=== PATIENT | male | born 1960 | race Caucasian/White ===

== ENCOUNTER 2022-10-17 13:58 | Outpatient (OUT) | payer OTHER, SELFPAY | END 2022-10-17 13:59 | disposition home or self-care (01) | LOC: PST 13:58 | PROVIDERS: Visit Provider Surgery | DX: Z01.818 Encounter for other preprocedural examination (principal); Z12.11 Encounter for screening for malignant neoplasm of colon ==

== ENCOUNTER 2022-10-25 07:23 | Day surgery (SDC) | payer OTHER, SELFPAY ==
--- NOTE | 2022-10-25 | OP_ITS ---
OPERATION DATE: ??10/25/2022 PREOPERATIVE DIAGNOSIS:? Colorectal screening. POSTOPERATIVE DIAGNOSIS:? Normal colonoscopy to cecum. PROCEDURE:? Colonoscopy to cecum. SURGEON:? Warren Medina M.D. ANESTHESIA:? Monitored anesthesia care. ESTIMATED BLOOD LOSS:? Zero. INDICATIONS AND CONSENT:? Patient is a 62-year-old male presents for colorectal screening.? Indications, risks, benefits, alternatives of proceeding with colonoscopy were explained extensively to the patient, including the risks of bleeding, colon perforation or anesthetic complications.? All of his questions were answered.? Informed consent was obtained. PROCEDURE:? Patient brought to the operating room, placed in the left lateral decubitus position.? Monitored anesthesia care was provided.? Rectal exam was performed which showed no masses or blood.? There was some perianal irritation.? No fissures.? No fistula tracts.? No induration.? Some decreased tone.? The scope was inserted into the anal canal.? Under direct visualization was advanced.? It was advanced to the cecum where cecal markings were clearly identified.? There was noted to be a good prep.? Upon withdrawal of the scope, mucosal surfaces were carefully examined.? There were no mass lesions or polyps.? No inflammatory changes or ulcerations.? No significant diverticulosis.? The scope was retroflexed in the anal canal.? There was no significant hemorrhoidal disease.? Scope was then withdrawn.? Patient tolerated procedure well, was sent to recovery room in good condition. f/u screening colonoscopy should be in 10 years. CC:? [facility] P[facility] Lange [facility]
[2022-10-25 07:39] VITALS: BMI 28.6
[2022-10-25] MEDS: LACTATED RINGER'S SOLUTION 1,000 ML 50 ML IV (07:45)
[2022-10-25 08:58] VITALS: BP 91/65; PULSE 87; RESP 20; TEMP 36.1; O2SAT 93
[2022-10-25 09:13] VITALS: BP 117/83; PULSE 78; RESP 16; O2SAT 94
[2022-10-25 09:27] VITALS: BP 112/85; PULSE 89; RESP 16; O2SAT 96
== END 2022-10-25 09:45 | disposition home or self-care (01) ==
PROVIDERS: PCP Internal Medicine; Visit Provider Surgery
PROC: (CPT 45378; principal; 2022-10-25 08:30)
DX: Z12.11 Encounter for screening for malignant neoplasm of colon (principal); I10 Essential (primary) hypertension; E78.5 Hyperlipidemia, unspecified; N40.0 Benign prostatic hyperplasia without lower urinary tract symptoms; E78.00 Pure hypercholesterolemia, unspecified; F41.1 Generalized anxiety disorder
CPT/HCPCS: 45378; J2704

== ENCOUNTER 2023-05-22 10:11 | Outpatient (OUT) | payer OTHER, SELFPAY ==
[2023-05-22 10:30] LABS: Basophils Absolute Auto 0.1 10^3/uL (0.0-0.1); Basophils Percent Auto 0.8 % (0.2-2.0); Eosinophils Absolute Auto 0.4 10^3/uL (0.0-0.7); Eosinophils Percent Auto 6.7 % (0.9-7.0); Hematocrit 43.2 % (42.0-54.0); Hemoglobin 14.5 g/dL (14.0-18.0); Immature Granulocytes Abs Auto 0.02 10^3/uL (0.00-0.03); Immature Granulocytes Pct Auto 0.3 % (0.0-0.5); Lymphocytes Absolute Auto 1.8 10^3/uL (1.2-3.8); Lymphocytes Percent Auto 28.1 % (20.5-60.0); Mean Corpuscular HGB Conc 33.6 g/dL (29.9-35.2); Mean Corpuscular Hemoglobin 31.3 pg (25.9-34.0); Mean Corpuscular Volume 93.1 fL (80.0-94.0); Mean Platelet Volume 8.9 fL (9.5-13.5); Monocytes Absolute Auto 0.9 10^3/uL (0.3-0.8); Monocytes Percent Auto 13.6 % (1.7-12.0); Neutrophils Absolute Auto 3.2 10^3/uL (1.4-6.5); Neutrophils Percent Auto 50.5 % (43.0-75.0); Platelet Count 243 10^3/uL (150-450); Red Blood Count 4.64 10^6/uL (4.70-6.10); Red Cell Distribution Width 11.9 % (11.0-15.0); White Blood Count 6.4 10^3/uL (4.0-11.0)
[2023-05-22 10:57] LABS: Alanine Aminotransferase 32 U/L (16-63); Albumin Globulin Ratio 0.8; Albumin Level 3.2 g/dL (3.4-5.0); Alkaline Phosphatase 81 U/L (46-116); Anion Gap 12.7; Aspartate Amino Transferase 46 U/L (15-37); BUN Creatinine Ratio 17.8; Bilirubin Total 0.6 mg/dL (0.2-1.0); Calcium 8.8 mg/dL (8.5-10.1); Carbon Dioxide 28.4 mmol/L (21.0-32.0); Chloride 105 mmol/L (98-107); Chol HDL Ratio 3.4; Cholesterol 172 mg/dL (<=200); Estimated GFR (African America >60 (>=60); Estimated GFR (Non-African Ame >60 (>=60); Globulin 3.9 g/dL; Glucose 110 mg/dL (74-106); HDL Cholesterol 50 mg/dL (40-60); Potassium 4.1 mmol/L (3.5-5.1); Sodium 142 mmol/L (136-145); Total Protein 7.1 g/dL (6.4-8.2); Triglycerides 151 mg/dL (<=150); VLDL CHOLESTEROL 30.2 mg/dL
[2023-05-22 11:11] LABS: Prostate Specific Antigen Scrn 5.66 ng/mL (<=4.00)
== END 2023-05-22 10:12 | disposition home or self-care (01) ==
LOC: LAB 10:12
PROVIDERS: PCP Internal Medicine; Visit Provider Internal Medicine
DX: Z00.00 Encounter for general adult medical examination without abnormal findings (principal); Z12.5 Encounter for screening for malignant neoplasm of prostate
CPT/HCPCS: 36415; 80053; 80061; 85025; G0103

== ENCOUNTER 2023-07-02 09:36 | Outpatient (OUT) | payer OTHER, SELFPAY ==
[2023-07-03 04:10] LABS: PSA, Free 0.29 ng/mL; Prostate Specific Ag 2.8 ng/mL (0.0-4.0)
== END 2023-07-02 09:37 | disposition home or self-care (01) ==
LOC: LAB 09:37
PROVIDERS: PCP Internal Medicine; Visit Provider Internal Medicine
DX: R97.20 Elevated prostate specific antigen [PSA] (principal)
CPT/HCPCS: 36415; 84153; 84154

== ENCOUNTER 2024-01-04 13:09 | Outpatient (OUT) | payer OTHER, SELFPAY ==
--- OUTSIDE RECORDS SUMMARY | 2024-01-04 13:13 | XMS_ITS | CCD ---
Author Organization [facility] CliniSynm Care Team Providers Care [place] Name Role Phone DR NAYAN LANGE Primary Care Unavailable BALL, DR FONTANEZ Admitting Unavailable BALL, DR FONTANEZ Attending Unavailable BALL, DR FONTANEZ Consulting Unavailable BALL, DR FONTANEZ Admitting Unavailable BALL, DR FONTANEZ Attending Unavailable BALL, DR FONTANEZ Consulting Unavailable BALL, DR FONTANEZ Primary Care Unavailable WEST, DR KAREEM Marc Consulting Unavailable Nazario, Nayan Unavailable NAYAN LANGE Primary Care Physician SHANNAN, Warren Maxwell Attending Unavailable BALL, NAYAN Referring Unavailable NILL, Warren Maxwell Attending Unavailable BALL, NAYAN Referring Unavailable NILL, Warren Maxwell Attending Unavailable Allergies Allergy Classification Reported Allergen(s) Allergy Type Date of Onset Reaction(s) Facility (9 sources) HMG-CoA reductase inhibitor Drug allergy Unknown [employer] Other (1 source) No Known Medication Allergies; Translations: [No Known Medication Allergies] Propensity to adverse reactions (disorder) [facility] Repository (2 sources) patient allergy list reviewed by nurse or physicia Propensity to adverse reactions 9 Comment:Done [employer] Other (2 sources) Penicillins Allergy to substance 4 nausea/vomitin g [facility] (2 sources) Uaoixmy-LFS-LgG Reductase Inhibitor Allergy to substance 4 Unknown Reaction [facility] Medications Current Medications Medication Drug Class(es) Dates Sig (Normalized) Sig (Original) ALPRAZolam 0.5 mg oral tablet (16 sources) Benzodiazepine Start: 04-19-2023 End: 04-19-2023 take 1 tablet by mouth twice daily, then take 2 tablets by mouth once at bedtime Alprazolam Active 0.5 MG PO Three times daily 120 April 19, 2023 3:43pm 1 tablet bid and 2 q HS Start: 06-30-2023 take 1 tablet by misbah th twice daily, then take 2 tablets by mouth once daily at bedtime ALPRAZolam 0.5 MG TAKE 1 TABLET BY MOUTH TWICE DAILY AND 2 TABLETS BY MOUTH DAILY AT BEDTIME for 30 Jul, Active ALPRAZolam 0.5 M G (Schedule IV Drug) TAKE 1 TABLET BY MOUTH TWICE DAILY AND 2 TABLETS BY MOUTH EVERY DAY AT BEDTIME Oral for 30 Active lovastatin 40 mg oral tablet (15 sources) HMG-CoA Reductase Inhibitor Start: 08-27-2023 take 1 tablet by mouth once daily in the evening Lovastatin Active 0 .ROUTE .COMPLEX 90 August 27, 2023 5:19pm TAKE 1 TABLET BY MOUTH EVERY DAY IN THE EVENING Start: 05-18-2023 End: 08-27-2023 take 40 mg by mouth once daily in the evening Lovastatin Discontinued 40 MG PO Every evening May 18, 2023 12:00am August 27, 2023 5:19pm Start: 09-15-2022 [facility] lovastatin 40 mg Tab 40 mg = 1 tab(s), Oral, Daily, Refills(s) 0 Start Date: 09/15/22 Status: Ordered PARoxetine hydrochloride 30 mg oral tablet (16 sources) Serotonin Reuptake Inhibitor Start: 04-19-2023 take 1 tablet by mouth once daily Paroxetine Hcl Active 0 .ROUTE .COMPLEX 90 April 19, 2023 3:44pm TAKE 1 TABLET BY MOUTH EVERY DAY Start: 04-19-2023 End: 04-19-2023 take 30 mg by mouth once daily Paroxetine Hcl Disconti nued 30 MG PO Daily April 19, 2023 1:00am April 19, 2023 3:45pm Start: 09-15-2022 take 1 tablet by misbah once daily paroxetine 30 mg Tab 30 mg = 1 tab(s), Oral, Daily, Refills(s) 0 Start Date: 09/15/22 Status: Ordered predniSONE 20 mg oral tablet (10 sources) Start: 11-05-2023 Prednisone Act roberto 20 MG PO As Directed November 05, 2023 12:00am 1 tab tid w/ food x 3 days, then bid w/ food x 3 days, then qd w/ food x 3 days Start: 03-20-2022 take 1 tablet by misbah twice daily predniSONE 20 MG 1 tablet Orally Twice daily w/ food for 5 days Feb, Not-Taking/PRN Completed/Discontinued Medications Medication Drug Class(es) Dates Sig (Normalized) Sig (Original) azithromycin 250 mg oral tablet (2 sources) Macrolide Antimicrobial Start: 05-22-2023 End: 10-11-2023 Azithromycin Discontinued 250 MG PO As Directed 6 5 May 22, 2023 12:00am October 11, 2023 9:25am baclofen 20 mg oral tablet (9 sources) gamma-Aminobutyric Acid-ergic Agonist Start: 03-20-2022 take 1 tablet by mouth at bedtime Baclofen 20 MG 1 Tablet Orally At bedtime for 7 days Feb, Not-Taking/PRN ciprofloxacin 500 mg oral tablet (10 sources) Quinolone Antimicrobial Start: 05-18-2023 End: 05-21-2023 take 500 mg by mouth every twelve hours Ciprofloxacin Hcl Discontinued 500 MG PO Every 12 hours May 18, 2023 12:00am May 21, 2023 11:48am Start: 08-21-2022 take 1 tablet by misbah th every twelve hours Ciprofloxacin HCl 500 MG 1 tablet Orally every 12 hrs for 5 days Jul, Active diclofenac sodium 75 mg delayed release oral tablet (9 sources) Nonsteroidal Anti-inflammatory Drug take 1 tablet by mouth every twelve hours Diclofenac Sodium 75 MG 1 tablet as needed Orally Twice a day Not-Taking/PRN metroNIDAZOLE 500 mg oral tablet (10 sources) Nitroimidazole Antimicrobial Start: End: take 500 mg by mouth three times daily Metronidazole Discontinued 500 MG PO Three times daily May 18, 2023 12:00am May 21, 2023 11:48am Start: 08-21-2022 take 1 tablet by misbah th every eight hours metroNIDAZOLE 500 MG 1 tablet Orally Three times a day for 5 days Jul, Active sulfamethoxazole 800 mg / trimethoprim 160 mg oral tablet (4 sources) Dihydrofolate Reductase Inhibitor Antibacterial, Sulfonamide Antimicrobial Start: 05-22-2023 End: 10-11-2023 take 1 tablet by mouth twice daily Sulfamethoxazole-Trimethoprim Discontinued 1 TAB PO Twice daily 42 May 22, 2023 12:00am October 11, 2023 9:26am Start: 03-26-2023 take 1 tablet by misbah th every twelve hours Sulfamethoxazole-Trimethoprim 800-160 MG 1 tablet Orally bid for 7 days Feb, Active tiZANidine 4 mg oral tablet (9 sources) Central alpha-2 Adrenergic Agonist take 1 tablet by mouth every eight hours tiZANidine HCl 4 MG 1 tablet as needed Orally Three times a day Not-Taking/PRN triamcinolone acetonide 0.001 mg/mg topical ointment (19 sources) Corticosteroid Start: 05-18-19 End: 05-21-19 Triamcinolone Acetonide Discontinued 1 APPLIC TOPICAL Twice daily May 18, 2023 12:00am May 21, 2023 11:49am Start: 11-17-2019 Kenalog -40 mg Oct, 40 mg Triamcinolone Ac etonide 0.1 % 1 application Externally Twice a day for 7 days Active Problems Active Problems Problem Classification Problem Date Documented Date Episodic/Chronic Anal and rectal conditions (14 sources) Rectal abscess; Translations: [Anorectal abscess] Resolved: 07-15-2019 Episodic Anxiety disorders (16 sources) Generalized anxiety disorder; Translations: [Generalized anxiety disorder] 09-18-2022 Chronic Diabetes mellitus without complication (2 sources) Impaired fasting glycemia; Translations: [Impaired fasting glucose] 05-28-2023 Episodic Diseases of mouth; excluding dental (11 sources) Lip ulcer; Translations: [Diseases of lips] Episodic Disorders of lipid metabolism (20 sources) Pure hypercholesterolemia; Translations: [Familial hypercholesterolemia] Onset: 03-31-2015 Resolved: 07-15-2019 09-18-2022 Chronic Essential hypertension (17 sources) Essential hypertension; Translations: [Essential (primary) hypertension] Chronic Fracture of upper limb (4 sources) Closed fracture of base of thumb; Translations: [Closed fracture of base of thumb (first) metacarpal bone(s)] Episodic Hemorrhoids (18 sources) External hemorrhoids; Translations: [Residual hemorrhoidal skin tags] 05-18-2023 Episodic Hyperplasia of prostate (16 sources) Lower urinary tract symptoms due to benign prostatic hypertrophy; Translations: [Benign prostatic hyperplasia with lower urinary tract symptoms] 09-18-2022 Chronic Miscellaneous mental health disorders (2 sources) Psychosexual dysfunction associated with inhibited sexual excitement; Translations: [Psychosexual dysfunction with inhibited sexual excitement] Onset: 10-22-2012 Chronic Nonmalignant breast conditions (2 sources) Hypertrophy of breast; Translations: [Hypertrophy of breast] Episodic Osteoarthritis (12 sources) Osteoarthritis of joint of right shoulder region; Translations: [Primary osteoarthritis, right shoulder] 05-18-2023 Chronic Other circulatory disease (11 sources) Elevated blood-pressure reading without diagnosis of hypertension; Translations: [Elevated blood-pressure reading, without diagnosis of hypertension] Episodic Other connective tissue disease (11 sources) Acquired trigger finger; Translations: [Trigger finger, left middle finger] Episodic Other injuries and conditions due to external causes (11 sources) Old healed fracture of bone ; Translations: [Personal history of (healed) traumatic fracture] Episodic Other liver diseases (2 sources) Enzyme level - finding; Translations: [Transaminasemia] 05-28-2023 Episodic Other male genital disorders (15 sources) Male erectile dysfunction, unspecified; Translations: [Erectile dysfunction] 09-18-2022 Chronic Other non-traumatic joint disorders (1 source) Pain in right shoulder Episodic Other nutritional; endocrine; and metabolic disorders (2 sources) Simple obesity ; Translations: [Other obesity due to excess calories] Chronic Other nutritional; endocrine; and metabolic disorders (2 sources) Body mass index 30+ - obesity; Translations: [Body mass index 30.0-30.9, adult] Onset: 03-31-2015 Chronic Other nutritional; endocrine; and metabolic disorders (12 sources) Overweight; Translations: [Overweight] 09-18-2022 Episodic Other nutritional; endocrine; and metabolic disorders (1 source) Overweight in adulthood with body mass index of 25 or more but less than 30 09-20-2022 Episodic Other screening for suspected conditions (not mental disorders or infectious disease) (12 sources) Encounter for screening for malignant neoplasm of prostate; Translations: [Patient encounter status] Onset: 09-23-2020 Resolved: 07-15-2019 Episodic Residual codes; unclassified (2 sources) H/O: Disorder; Translations: [Personal history of other specified conditions] Episodic Spondylosis; intervertebral disc disorders; other back problems (19 sources) Other spondylosis with radiculopathy, cervical region; Translations: [Cervical spondylosis without myelopathy] Onset: 07-28-2020 Chronic Sprains and strains (9 sources) Rupture of tendon of biceps; Translations: [Strain of muscle, fascia and tendon of other parts of biceps, right arm, initial encounter] Episodic Unclassified (1 source) Patient encounter status 09-20-2022 Past or Other Problems Problem Classification Problem Date Documented Da te Episodic/Chronic Acute bronchitis (2 sources) Acute bronchitis; Translations: [Acute bronchitis, unspecified] Onset: 05-22-2014 Episodic Genitourinary symptoms and ill-defined conditions (3 sources) Dysuria; Translations: [Dysuria] Onset: 10-06-2016 Episodic Headache; including migraine (2 sources) Tension-type headache; Translations: [Tension headache] Resolved: 07-15-2019 Chronic Malaise and fatigue (2 sources) Malaise and fatigue; Translations: [Other malaise and fatigue] Onset: 10-06-2016 Resolved: 07-15-2019 Episodic Other connective tissue disease (2 sources) Pain in limb; Translations: [Pain in soft tissues of limb] Onset: 08-01-2017 Resolved: 07-15-2019 Episodic Other nutritional; endocrine; and metabolic disorders (2 sources) Body mass index 25-29 - overweight; Translations: [Body mass index (BMI) 28.0-28.9, adult] Onset: 03-31-2015 Episodic Other upper respiratory infections (4 sources) Acute maxillary sinusitis; Translations: [Acute recurrent maxillary sinusitis] Onset: 05-22-2014 Resolved: 07-15-2019 Episodic Residual codes; unclassified (2 sources) Family history of diabetes mellitus; Translations: [Family history of diabetes mellitus] Resolved: 07-15-2019 Episodic Spondylosis; intervertebral disc disorders; other back problems (2 sources) Backache; Translations: [Dorsalgia, unspecified] Onset: 10-22-2012 Episodic Unclassified (1 source) Acute right-sided low back pain without sciatica M54.50 Results Test Name Value Interpretation Reference Range Facility Outside Colonoscopyon 2022 Outside Colonoscopy [id number]:12 7 [facility] Reminderson 10-26-2022 Reminders - From: Heather Pepper LPN To: N - Clinical; Sent: 10/26/2022 09:57:03 EDT Show up: 09/24/2032 07:00:00 EDT Subject: colonoscopy recall Due Date/Time: 10/25/2032 07:00:00 EDT Reminder/Recall Patient due for screening colonoscopy 10/25/2032. Normal [facility] Consent for Procedure/Surger yon 09-21-2022 Consent for Procedure/Surgery [id number]:12 7 Normal [facility] Facesheeton 09-21-2022 Facesheet [id number]:12 7 Normal [facility] Ambulatory Visit Summaryon 0 09-20-2022 Ambulatory Visit Summary INA DONALDSON JR :1960 Visit Date:09/20/2022 Ambulatory Visit Instructions Your Care Team Attending Physician - SHANNAN HERNANDEZ, Warren Maxwell Primary Care Physician - NAYAN LANGE DO Referring Physician - NAYAN LANEG DO This Is Your Medications List Contact prescribing physician if questions or concerns alprazolam (alprazolam 0.5 mg Tab) lovastatin (lovastatin 40 mg Tab) paroxetine (paroxetine 30 mg Tab) Procedures Performed Colonoscopy (06/2012), Arthroscopy of knee, Excisional biopsy of breast mass, Plantar fasciotomy, Right glenoid labrum. Discharge Vitals Heart Rate (Peripheral) 72 Respiratory Rate 16 Blood Pressure 132/92 Height 172.72 cm Height 68 in Weight 84.5 kg Weight 185.9 lb BMI 28.33 Medications What How Much When Instructions Unchanged alprazolam (alprazolam 0.5 mg Tab) as directed Contact prescribing physician if questions or concerns Unchanged lovastatin (lovastatin 40 mg Tab) 1 Tablets By Mouth Every day Contact prescribing physician if questions or concerns Unchanged paroxetine (paroxetine 30 mg Tab) 1 Tablets By Mouth Every day Contact prescribing physician if questions or concerns Allergies No Known Allergies No Known Medication Allergies Problems Ongoing - Any problem that you are currently receiving treatment for. Anorectal abscess BMI 28.0-28.9,adult BPH (benign prostatic hyperplasia) Cervical spondylosis without myelopathy Erectile dysfunction Essential hypertension Generalized anxiety disorder Hyperlipidemia Overweight Pure hypercholesterolemia Normal [facility] General Surgery Office/Clini c Noteon 09-20-2022 General Surgery Office/Clinic Note Chief Complaint consult perirectal abscess, screening colonoscopy HPI Staff 61 year old male presents on consultation from Dr. Lange for perirectal abscess and screening colonoscopy. Patient reports rectal pain and discharge starting mid July. PCP noted fullness at 9:00 position and blood and mucus on rectal exam. Was doing sitz bath 1-2 times per day. He was not febrile. Prescribed Cipro 500mg BID and Flagyl 500mg TID x 7 days. On follow up, symptoms had improved but not resolved so ATB's were repeated x 5 days. Currently, he is asymptomatic other than feeling there is something protruding from rectum. Last colonoscopy completed 06/2012- normal. Denies abdominal pain. No nausea, vomiting or bowel changes. No unexplained weight loss. History of Present Illness 61 yo male with h/o htn, hyperlipidemia, hypercholesterolemia, TEODORA, bph, referred for colorectal screening; patient also has h/o rectal pain and pain with wiping that began 6 weeks ago; felt to have possible perirectal abscess, with drainage; improved with antibiotic therapy; no change in bms or blood in stools; no further drainage; no fevers, no previous rectal or abd surgery; last colonoscopy 2012 wnl; no tobacco use. Review of Systems PHQ Score Initial Depression Screen Score: 0 ROS - Provider Constitutional: no fever, no sweats, no weight loss. Eyes: no glasses, no blurred vision, no visual loss. ENMT: no dentures, no hoarseness, no swallowing difficulties, no hearing loss, no ear infection(s), no nose bleeds. Cardiovascular: normal blood pressure, no chest pain, regular heartbeat, no heart murmur. Respiratory: no shortness of breath, no cough, no asthma, no wheezing. Gastrointestinal: no nausea, no vomiting, no diarrhea, no constipation, no blood in stool, no change in bowel habits, no abdominal pain, no hepatitis. Genitourinary: no kidney stones, no urine infection, no dysuria. Musculoskeletal: no pain, no weakness. Skin: no changing moles, no rash, no skin lumps. Neurologic: no seizures, no epilepsy, no headache. Psychiatric: no emotional or psychiatric problem. Heme/Lymph: no bleeding problems, no anemia, no blood clots, no transfusions. Allergy/Immunologic: no swollen lymph nodes/glands, no IV drug abuse. Other: Additional ROS info: Except as noted in the above Review of Systems and in the History of Present Illness, all other systems have been reviewed and are negative or noncontributory. Physical Exam Vitals & Measurements HR: 72(Peripheral) RR: 16 BP: 132/92 HT: 68 in HT: 172.72 cm WT: 84.5 kg WT: 185.9 lb BMI: 28.33 HEENT: normal conjunctiva, sclera clear, no scleral icterus, EOM intact, PERRLA, oral mucosa moist without lesions. Neck: trachea midline, no mass, symmetric, no thyromegaly or nodules, no adenopathy Respiratory: lungs CTA, respirations non labored. Cardiovascular: regular rate and rhythm, no murmur, no pedal edema or varicosities. Gastrointestinal: soft, non distended, no tenderness, no masses, no palpable hernias, diastasis recti no, no hepatosplenomegaly; normal bs rectal: no masses or blood, no induration or drainage, no skin tags or fissures. Lymphatic: no cervical adenopathy, no supraclavicular adenopathy. Musculoskeletal: normal gait, digits and nails without infection, nodes, cyanosis, clubbing. Skin: no rashes, no lesions, no ulcers, no subcutaneous nodules, induration. Psychiatric/Neuro: oriented to time, place, person, judgement normal, affect appropriate for age, insight intact, no focal deficits. Tests: review of old records completed, Discussed surgical options, risks, and possible complications with patient. Assessment/Plan 1. Screening for malignant neoplasm of colon (Z12.11: Encounter for screening for malignant neoplasm of colon) plan colonoscopy under anesthesia, informed consent obtained; no evidence of fistula at this time, but will reevaluate at time of colonoscopy. Follow-up No qualifying data available Problem List/Past Medical History Ongoing Anorectal abscess BMI 28.0-28.9,adult BPH (benign prostatic hyperplasia) Cervical spondylosis without myelopathy Erectile dysfunction Essential hypertension Generalized anxiety disorder Hyperlipidemia Overweight Pure hypercholesterolemia Screening for malignant neoplasm of colon Historical No qualifying data Procedure/Surgical History Colonoscopy (06/2012), Arthroscopy of knee, Excisional biopsy of breast mass, Plantar fasciotomy, Right glenoid labrum. Medications alprazolam 0.5 mg Tab lovastatin 40 mg Tab, 40 mg= 1 tab(s), Oral, Daily paroxetine 30 mg Tab, 30 mg= 1 tab(s), Oral, Daily Allergies No Known Allergies No Known Medication Allergies Social History Alcohol Current, Liquor, 1-2 times per week, 09/20/2022 Substance Abuse - Denies Substance Abuse, 09/20/2022 Tobacco Never (less than 100 in lifetime) Tobacco Use:. Never Smokeless Tobacco Use:., 09/20/2022 Family History COPD: Mother. Diabetes mellitus typ (more content not included)... Normal [facility] Comment on above: Result Comment: Elec tronically Signed By: SHANNAN HERNANDEZ, Warren Gonzales\Date and Time Signed: 09/20/22 16:54 EDT Physician Referralon 023 Physician Referral [id number]:12 7 Normal [facility] CBC AUTO DIFFon 09-20-2020 BASO # 0.1 103/ul Normal 0.0-0.1 [facility] Comment on above: Performed By: #### C BC #### [facility] [address] [place] [address] Hailee Sally Basophils/100 WBC (Bld) 0.9 % Normal 0.2-2.0 [facility] Comment on above: Performed By: #### C BC #### [facility] [address] [place] [address] Hailee Sally EO # 0.3 103/ul Normal 0.0-0.7 [facility] Comment on above: Performed By: #### C BC #### [facility] [address] [place] [address] Hailee Sally Eosinophils/100 WBC (Bld) 4.8 % Normal 0.9-7.0 [facility] Comment on above: Performed By: #### C BC #### [facility] [address] [place], [place] [id number] Hailee Sally Erythrocyte distribution width (RBC) [Ratio] 12.4 % Normal 11.0-15.0 [facility] Comment on above: Performed By: #### C BC #### [facility] [address] [place], [place] [id number] Hailee Sally Hematocrit (Bld) [Volume fraction] 47.8 % Normal 42.0-54.0 [facility] Comment on above: Performed By: #### C BC #### [facility] [address] [place] [address] Hailee Zavala Hemoglobin (Bld) [Mass/Vol] 16.1 g/dL Normal 14.0-18.0 [facility] Comment on above: Performed By: #### C BC #### [facility] [address] [place] [address] Haileedaja Zavlaa IG # 0.02 10e3/ul Normal 0.00-0.03 [facility] Comment on above: Performed By: #### C BC #### [facility] [address] [place] [address] Haileedaja Zavala IG % 0.4 % Normal 0.0-0.5 [facility] Comment on above: Performed By: #### C BC #### [facility] [address] [place] [address] Hailee Zavala LYMPH # 1.8 103/ul Normal 1.2-3.8 [facility] Comment on above: Performed By: #### C BC #### [facility] [address] [place] [address] Hailee Zavala Lymphocytes/100 WBC (Bld) 32.0 % Normal 20.5-60.0 [facility] Comment on above: Performed By: #### C BC #### [facility] [address] [place] [address] Hailee Zavala MANUAL DIFF REQ NO Normal [facility] Comment on above: Performed By: #### C BC #### [facility] [address] [place], [place] [id number] Hailee Zavala MCH (RBC) [Entitic mass] 31.7 pg Normal 25.9-34.0 [facility] Comment on above: Performed By: #### C BC #### [facility] [address] [place] [address] Hailee Zavala MCHC (RBC) [Mass/Vol] 33.7 g/dL Normal 29.9-35.2 [facility] Comment on above: Performed By: #### C BC #### [facility] [address], [place] [address] Hailee Zavala MCV (RBC) [Entitic vol] 94.1 fL Critically high 80.0-94.0 [facility] Comment on above: Performed By: #### C BC #### [facility] [address] [place] [id number] Hailee Zavala MONO # 0.7 103/ul Normal 0.3-0.8 [facility] Comment on above: Performed By: #### C BC #### [facility] [address] [place] [id number] Hailee Zavala Monocytes/100 WBC (Bld) 12.6 % Critically high 1.7-12.0 [facility] Comment on above: Performed By: #### C BC #### [facility] [address] [place], [place] [id number] Hailee Zavala NEUT # 2.7 103/ul Normal 1.4-6.5 [facility] Comment on above: Performed By: #### C BC #### [facility] [address] [place], [place] [id number] Hailee Zavala Neutrophils/100 WBC (Bld) 49.3 % Normal 43.0-75.0 [facility] Comment on above: Performed By: #### C BC #### [facility] [address] [id number] Hailee Zavala Platelet mean volume (Bld) [Entitic vol] 9.4 fL Critically low 9.5-13.5 [facility] Comment on above: Performed By: #### C BC #### [facility] [address] [place] [id number] Haileedaja Moctezumaen PLT 257 103/ul Normal 150-450 [facility] Comment on above: Performed By: #### C BC #### [facility] [address] [place], [place] [id number] Haileedaja Zavala RBC 5.08 106/ul Normal 4.70-6.10 [facility] Comment on above: Performed By: #### C BC #### [facility] [address], [place] [address] Hailee Sally WBC 5.5 103/ul Normal 4.0-11.0 [facility] Comment on above: Performed By: #### C BC #### [facility] [address], [place] [address] Hailee Sally LIPID PROFILEon 09-20-2020 CHOL-HDL RATIO NORM SEE BELOW Normal [facility] Comment on above: Result Comment: 3.3 - 4.4 LOW RISK 4.4 - 7.1 AVERAGE RISK 7.1 - 11.0 MODERATE RISK >11.0 HIGH RISK Performed By: #### L IPID, CMP #### [facility] [address] [id number] Hailee Sally Cholesterol [Mass/Vol] 290 mg/dL Critically high <=200 [facility] Comment on above: Performed By: #### L IPID, CMP #### [facility] [address] [id number] Hailee Sally Cholesterol in HDL [Mass/Vol] 72 mg/dL Normal [facility] Comment on above: Performed By: #### L IPID, CMP #### [facility] [address] [id number] Hailee Sally Cholesterol in LDL [Mass/Vol] 195.8 mg/dL Normal [facility] Comment on above: Performed By: #### L IPID, CMP #### [facility] [address], [place] [address] Hailee Sally Cholesterol.total/ Cholesterol in HDL [Mass ratio] 4.0 {ratio} Normal [facility] Comment on above: Performed By: #### L IPID, CMP #### [facility] [address], [place] [address] Hailee Sally HDL NORMAL > or = 60 mg/dl - LO W CARDIOVASCULAR RISK <40 mg/dl - HIGH CARDIOVASCULAR RISK Normal [facility] Comment on above: Performed By: #### L IPID, CMP #### [facility] [address] [id number] Hailee Sally LDL CALC NORMAL SEE BELOW Normal [facility] Comment on above: Result Comment: <100 mg/dl OPTIMAL 100 - 129 mg/dl NEAR OR ABOVE OPTIMAL 130 - 159 mg/dl BORDERLINE HIGH 160 - 189 mg/dl HIGH >190 mg/dl VERY HIGH Performed By: #### L IPID, CMP #### [facility] [address] [id number] Hailee Sally Triglyceride [Mass/Vol] 111 mg/dL Normal <=150 [facility] Comment on above: Performed By: #### L IPID, CMP #### [facility] [address] [id number] Hailee Sally VLDL CALC 22.2 mg/dL Normal [facility] Comment on above: Performed By: #### L ASHLEIGH, CMP #### [facility] [address] [place], [place] [id number] Hailee Salyl PROF 14(COMP METB)on 021 Albumin [Mass/Vol] 3.8 g/dL Normal 3.5-5.0 [facility] Comment on above: Performed By: #### L IPIGOR, CMP #### [facility] [address] [id number] Hailee Sally Albumin/Globulin [Mass ratio] 1.0 {ratio} Normal [facility] Comment on above: Performed By: #### L ASHLEIGH, CMP #### [facility] [address] [id number] Hailee Sally ALP [Catalytic activity/Vol] 64 U/L Normal 38-126 [facility] Comment on above: Performed By: #### L IPID, CMP #### [facility] [address] [place], [place] [id number] Hailee Sally ALT [Catalytic activity/Vol] 36 U/L Normal 21-72 [facility] Comment on above: Performed By: #### L IPID, CMP #### [facility] [address] [id number] Hailee Sally Anion gap [Moles/Vol] 13.0 mmol/L Normal [facility] Comment on above: Performed By: #### L IPID, CMP #### [facility] [address] [id number] Hailee Sally AST [Catalytic activity/Vol] 56 U/L Normal 17-59 [facility] Comment on above: Performed By: #### L IPID, CMP #### [facility] [address] [address] Hailee Sally Bilirubin [Mass/Vol] 1.0 mg/dL Normal 0.2-1.3 [facility] Comment on above: Performed By: #### L IPID, CMP #### [facility] [address] [address] Hailee Sally Calcium [Mass/Vol] 9.0 mg/dL Normal 8.4-10.2 [facility] Comment on above: Performed By: #### L IPID, CMP #### [facility] [address] [address] Hailee Sally Chloride [Moles/Vol] 106 mmol/L Normal 98-107 [facility] Comment on above: Performed By: #### L IPID, CMP #### [facility] [address] [place] [address] Hailee Sally CO2 [Moles/Vol] 29.4 mmol/L Normal 22.0-30.0 [facility] Comment on above: Performed By: #### L IPID, CMP #### [facility] [address] [place] [address] Hailee Sally Creatinine [Mass/Vol] 1.00 mg/dL Normal 0.66-1.25 [facility] Comment on above: Performed By: #### L IPID, CMP #### [facility] [address] [place], [place] [id number] Hailee Sally EGFR-AF CAMEROONIAN >60 Normal >=60 [facility] Comment on above: Performed By: #### L IPID, CMP #### [facility] [address] [place] [address] Hailee Sally EGFR-NON AF CAMEROONIAN >60 Normal >=60 [facility] Comment on above: Performed By: #### L IPID, CMP #### [facility] [address] [place], [place] [address] Hailee Sally Globulin (S) [Mass/Vol] 3.8 g/dL Normal [facility] Comment on above: Performed By: #### L IPID, CMP #### [facility] [address] [address] Hailee Sally Glucose [Mass/Vol] 117 mg/dL Critically high 74-[address] [facility] Comment on above: Performed By: #### L IPID, CMP #### [facility] [address] [address] Hailee Sally Potassium [Moles/Vol] 5.4 mmol/L Critically high 3.4-5.0 [facility] Comment on above: Performed By: #### L IPID, CMP #### [facility] [address] [address] Hailee Sally Protein [Mass/Vol] 7.6 g/dL Normal 6.1-8.2 [facility] Comment on above: Performed By: #### L IPID, CMP #### [facility] [address] [place] [address] Hailee Sally Sodium [Moles/Vol] 143 mmol/L Normal 137-145 [facility] Comment on above: Performed By: #### L IPID, CMP #### [facility] [address] [address] Hailee Sally Urea nitrogen [Mass/Vol] 16.0 mg/dL Normal 9.0-20.0 [facility] Comment on above: Performed By: #### L IPID, CMP #### [facility] [address] [address] Hailee Sally Urea nitrogen/Creatinin e [Mass ratio] 16.0 mg/mg Normal [facility] Comment on above: Performed By: #### L IPID, CMP #### [facility] [address] [id number] Hailee Sally XR CSPINE 2_3 VIEWSon 2020 XR CSPINE 2_3 VIEWS EXAMINATION: XR CSPINE 2_3 VIEWS HISTORY: Cervical spondylosis with radiculopathy COMPARISON: No relevant comparison available. FINDINGS: BONES: Normal alignment with no acute fracture or spondylolisthesis. Mild to moderate degenerative spondylosis and facet osteoarthropathy most significant C5-C6 DISC SPACES: Multilevel disc space narrowing with endplate sclerosis most significant C5-C6 and C6-C7 PARASPINOUS: Negative. No paraspinous abnormality is seen. OTHER: Negative. IMPRESSION: Mild to moderate degenerative changes Electronically authenticated by: KAREEM COOPER Date: 2020-07-28 11:20 Normal [facility] Vital Signs Date Time Vital Sign Value Performing Clinician Facility 11-05-2023 15:50-0400 Body height 172.72 cm [facility] 11-05-2023 15:50-0400 Body mass index (BMI) [Ratio] 28.5 kg/m2 [facility] 11-05-2023 15:50-0400 Body weight 85.27 kg [facility] 11-05-2023 15:50-0400 Diastolic blood pressure 85 mm[Hg] [facility] 11-05-2023 15:50-0400 Heart rate 86 /min [facility] 11-05-2023 15:50-0400 Respiratory rate 12 /min [facility] 11-05-2023 15:50-0400 Systolic blood pressure 138 mm[Hg] [facility] 10-11-2023 09:18-0400 Body height 172.72 cm [facility] 10-11-2023 09:18-0400 Body mass index (BMI) [Ratio] 27.9 kg/m2 [facility] 10-11-2023 09:18-0400 Body weight 83.46 kg [facility] 10-11-2023 09:18-0400 Diastolic blood pressure 83 mm[Hg] [facility] 10-11-2023 09:18-0400 Heart rate 76 /min [facility] 10-11-2023 09:18-0400 Systolic blood pressure 129 mm[Hg] [facility] 05-21-2023 11:49-0400 Body height 172.72 cm [facility] 05-21-2023 11:49-0400 Body mass index (BMI) [Ratio] 30.1 kg/m2 [facility] 05-21-2023 11:49-0400 Body weight 89.92 kg [facility] 05-21-2023 11:49-0400 Diastolic blood pressure 89 mm[Hg] [facility] 05-21-2023 11:49-0400 Heart rate 98 /min [facility] 05-21-2023 11:49-0400 Respiratory rate 12 /min [facility] 05-21-2023 11:49-0400 Systolic blood pressure 145 mm[Hg] [facility] 09-20-2022 14:56-0400 Blood Pressure Location [facility] [place] 09-20-2022 14:56-0400 Diastolic blood pressure 92 mm[Hg] [employer] [facility] [place] 09-20-2022 14:56-0400 Heart rate 72 /min [facility] [place] 09-20-2022 14:56-0400 Respiratory rate 16 /min [facility] [place] 09-20-2022 14:56-0400 Systolic blood pressure 132 mm[Hg] [employer] [facility] [place] 08-28-2022 08:45-0400 Body height 172.72 cm Nayan [employer] Other [facility] Other 08-28-2022 08:45-0400 Body mass index (BMI) [Ratio] 28.61 kg/m2 Nayan Ball Other [facility] Other 08-28-2022 08:45-0400 Body weight 85.37 kg Nayan [place] Other [facility] Other 08-28-2022 08:45-0400 Diastolic blood pressure 86 mm[Hg] Nayan Ball Other [facility] Other 08-28-2022 08:45-0400 Respiratory rate 12 /min Nayan Ball Other [facility] Other 08-28-2022 08:45-0400 Systolic blood pressure 126 mm[Hg] Nayan Ball Other [facility] Other 08-21-2022 09:30-0400 Body height 172.72 cm Nayan Ball Other [facility] Other 08-21-2022 09:30-0400 Body mass index (BMI) [Ratio] 28.61 kg/m2 Nayan Ball Other [facility] Other 08-21-2022 09:30-0400 Body weight 85.37 kg Nayan Ball Other [facility] Other 08-21-2022 09:30-0400 Diastolic blood pressure 88 mm[Hg] Nayan Ball Other [facility] Other 08-21-2022 09:30-0400 Respiratory rate 12 /min Nayan Ball Other [employer] Other 08-21-2022 09:30-0400 Systolic blood pressure 151 mm[Hg] Nayan Ball Other [facility] Other 05-31-2022 10:15-0400 Body height 172.72 cm Nayan Ball Other [employer] Other 05-31-2022 10:15-0400 Body mass index (BMI) [Ratio] 29.89 kg/m2 Nayan Ball Other [employer] Other 05-31-2022 10:15-0400 Body weight 89.18 kg Nayan Ball Other [employer] Other 05-31-2022 10:15-0400 Diastolic blood pressure 81 mm[Hg] Nayan Ball Other [facility] Other 05-31-2022 10:15-0400 SaO2% (BldA) [Mass fraction] 96 % Nayan Ball Other [facility] Other 05-31-2022 10:15-0400 Systolic blood pressure 123 mm[Hg] Nayan Ball Other [facility] Other 03-20-2022 12:30-0500 Body height 172.72 cm Nayan Ball Other [employer] Other 03-20-2022 12:30-0500 Body mass index (BMI) [Ratio] 29.16 kg/m2 Nayan Ball Other [employer] Other 03-20-2022 12:30-0500 Body weight 87 kg Nayan Ball Other [employer] Other 03-20-2022 12:30-0500 Diastolic blood pressure 76 mm[Hg] Nayan Ball Other [facility] Other 03-20-2022 12:30-0500 Respiratory rate 12 /min Nayan Ball Other [employer] Other 03-20-2022 12:30-0500 Systolic blood pressure 118 mm[Hg] Nayan Ball Other [employer] Other Encounters Encounter Date Encounter Type Care Provider Facility Start: 11-05-2023 End: 11-05-2023 ambulatory [facility] Work Phone: Start: 11-05-2023 End: 11-05-2023 Patient encounter procedure [facility] Work Phone: Start: 10-11-2023 End: 10-11-2023 ambulatory [facility] Work Phone: Start: 10-11-2023 End: 10-11-2023 Patient encounter procedure [facility] Work Phone: Start: 05-21-2023 End: 05-21-2023 ambulatory [facility] Work Phone: Start: 05-21-2023 End: 05-21-2023 Encounter for general adult medical examination without abnormal findings [facility] Start: 05-21-2023 End: 05-21-2023 Patient encounter procedure [facility] Work Phone: Start: 04-19-2023 Non-patient / Non-visit [facility] Work Phone: Start: 03-26-2023 End: 03-26-2023 ambulatory Nayan Lange Other [facility] Other Start: 03-26-2023 Nursing evaluation o f patient and report Nayan Lange [facility] Start: 03-26-2023 Telephone encounter Nayan Lange [facility] Start: 03-26-2023 Patient encounter procedure [facility]- Start: 10-25-2022 End: 10-26-2022 ambulatory Warren R NILL Facility:[id number] Start: 09-20-2022 End: 09-21-2022 ambulatory Warren R NILL Facility: [facility] Start: 09-20-2022 End: 09-20-2022 Patient encounter procedure Warren R NILL [facility] [place] Start: 09-14-2022 ambulatory Warren R NILL Facility : [facility] Start: 09-12-2022 End: 09-12-2022 ambulatory Nayan Lange Other [facility] Other Start: 09-12-2022 Telephone encounter Nayan COLLINS [facility] Start: 09-01-2022 End: 09-01-2022 ambulatory Nayan Lange Other [facility] Other Start: 09-01-2022 Telephone encounter Nayan Lange [facility] Start: 08-28-2022 End: 08-28-2022 ambulatory Nayan Lange Other [employer] Other Start: 08-28-2022 Office outpatient visit 15 minutes Nayan Lange [facility] Start: 08-21-2022 End: 08-21-2022 ambulatory Nayan Lange Other [employer] Other Start: 08-21-2022 Office outpatient visit 15 minutes Nayan Lange [facility] Start: 05-31-2022 End: 05-31-2022 ambulatory Nayan Lange Other [facility] Other Start: 05-31-2022 Office outpatient visit 15 minutes Nayan Lange [facility] Start: 03-20-2022 End: 03-20-2022 ambulatory Nayan Lange Other [facility] Other Start: 03-20-2022 Office outpatient visit 15 minutes Nayan Lange [facility] Start: 10-08-2021 Adult health examination Nayan Lange Other [employer] Other Start: 09-23-2020 Encounter for genera l adult medical examination without abnormal findings DR NAYAN LANGE [facility] Start: 09-20-2020 End: 09-21-[address] NAYAN LANGE Facility:[facility] Start: 09-20-2020 End: 09-21-2020 Encounter for general adult medical examination without abnormal findings DR NAYAN LANGE Facility:[facility] Start: 07-28-2020 End: 07-29-[address] NAYAN LANGE Facility:[facility] Procedures Date Procedure Procedure Detail Performing Clinician Start: 09-20-[address] ALONDRA LANGE Comment on above: Performed By: #### [facility] #### [facility] [address] [place] [address] Hailee Zavala Start: 10-06-2016 End: 07-15-2019 Screening for malignant neoplasm of prostate Nayan Lange Other Start: 01-29-2014 End: 07-15-2019 General examination of patient Nayan Lange Other Start: 06-26-2012 Colonoscopy Warren NI LL Arthroscopy of knee Warren NILL Depression screening Smitha [place] Other Excisional biopsy of breast mass Warren NILL Fasciotomy of foot Warren Gonzalez ILL Screening for malign ant neoplasm of prostate Nyaan [place] Other Structure of right g lenoid labrum Warren LOGNL Plan of Treatment Date Care Activity Detail Author Comprehensive metabo lic 2000 panel - Serum or Plasma [facility] enter [facility] Payers Date Payer Category Payer Unknown [id number] [id number] [id number] 1960 Unknown [id number] [id number] [id number] 1960 Unknown [id number] [id number] [id number] 1959 Unknown [id number] [id number] [id number] 1959 Unknown [id number] 2.16.8 [id number] 1959 Unknown [id number] Self-pay Self Pay [id number] Social History Date Type Detail Facility Unknown if ever smoked [employer] Other Sex Assigned At [facility] Start: 09-20-2022 End: 03-26-2023 Tobacco smoking status Never smoked tobacco (finding) [facility] [place] Tobacco smoking status Never [facility] [place] Start: 1960 Sex Assigned At Male F [facility] Functional Status Date Assessment Result Facility 09-20-2022 Functional Status N/A [facility] Clinical Notes 10-06-2016 to 10-11-2023 Note Date & Type Note Facility 10-11-2023 Evaluation note Authored October 11, 2023 9: 47am 62-year-old man referred to the GI clinic for evaluation of rectal pain. Patient has been having discomfort in the rectum for the last 2 months. He had a colonoscopy in [place] a year ago which was normal as per patient. Will arrange for [facility] Work Phone: [phone]) 910-439506-15-2024 Evaluation note* Author Miranda [facility] Authored October 11, 2023 9: 47am 62-year-old man referred to the GI clinic for evaluation of rectal pain. Patient has been having discomfort in the rectum for the last 2 months. He had a colonoscopy in [place] a year ago which was normal as per patient. Will arrange for [facility] Work Phone: [phone]) 660-824507-03-2023 Evaluation note* Encounter Date Diagnosis Assessment Notes Treatment Notes Treatment Clinical Notes Aug, Jorden-rectal abscess (ICD-10 - K61.1) Much improved clinically. He is to continues w/ soaking in tub and wiping w/ Tucks wipes. He is to avoid straining Resume normal activity as tolerated Notify office w/ any recurrent symptoms Rx w/ additional 5 days of antibiotics [facility] Other 07-03-2023 Evaluation note* Encounter Date Diagnosis Assessment Notes Treatment Notes Treatment Clinical Notes Aug, Jorden-rectal abscess (ICD-10 - K61.1) Much improved clinically. He is to continues w/ soaking in tub and wiping w/ Tucks wipes. He is to avoid straining Resume normal activity as tolerated Notify office w/ any recurrent symptoms Rx w/ additional 5 days of antibiotics Aug, Screening for colon cancer (ICD-10 - Z12.11) [facility] Other 06-26-2023 Evaluation note* Encounter Date Diagnosis Assessment Notes Treatment Notes Treatment Clinical Notes Jul, Jorden-rectal abscess (ICD-10 - K61.1) Sitz baths daily, gentle cleansing. Avoid straining Recheck in 1 wk. [facility] Other 04-05-2023 Evaluation note* Encounter Date Diagnosis Assessment Notes Treatment Notes Treatment Clinical Notes May, Rupture of right biceps tendon, initial encounter (ICD-10 - S46.211A) Refer to Orthopedics for guidance on rehabilitation. May, Acute pain of right shoulder (ICD-10 - M25.511) Ice/heat and Advil as needed. [facility] Other 01-23-2023 Evaluation note* Encounter Date Diagnosis Assessment Notes Treatment Notes Treatment Clinical Notes Feb, Acute right-sided low back pain without sciatica (ICD-10 - M54.50) The patient is instructed to avoid bending, twisting or lifting. They are to use intermittent heat and ice as needed. They may schedule a massage or gentle manipulation. They may safely use Tylenol as needed. Feb, Essential hypertension (ICD-10 - I10) This patient is instructed to consume a healthy, low-fat, low-salt diet. They are also encouraged to continue exercise to achieve/maintain a normal BMI. [facility] Other 08-11-2017 Evaluation note* Encounter Date Diagnosis Assessment Notes Treatment Notes Treatment Clinical Notes Sep, Dysuria (ICD-10 - R30.0) Dysuria [facility] Other Evaluation + Plan note No data available for this section [facility] [place] Evaluation noteNo InformationNort [facility] Other Evaluation note* Diagnosis Onset Date Resolution Status Benign prostatic hyperplasia with nocturia acute Essential (primary) hypertension acute TEODORA (generalized anxiety disorder) acute Hyperlipidemia type II acute Screening PSA (prostate specific antigen) noneactive Wellness examination noneact [facility] [place] Work Phone: History general Narrative - Reported* Type Description Date Medical History TEODORA (generalized anxiety disorde r) Medical History Essential hypertension Medical History Hyperlipidemia type II Medical History Lip ulcer Medical History Cervical spondylosis with radicu lopathy Medical History Elevated blood press ure reading in office without diagnosis of hypertension Medical History Body mass index (BMI) of 25.0 to 29.9 Medical History Benign prostatic hyp erplasia with lower urinary tract symptoms Medical History External hemorrhoid Medical History Hx of fracture of finger Medical History Trigger finger, left middle fing er Medical History Erectile dysfunction Surgical History Right Shoulder Labral Repair Surgical History Left Pec Soft Tissue Mass Surgical History LEFT MASTECTOMY Surgical History FASCIOTOMY RIGHT FOOT ARTHROSCO PY Surgical History LEFT KNEE ARTHROSCOPY Hospitalization History SEE SURGICAL HX [facility] Other History general Narrative - Reported* Type Description Date Medical History TEODORA (generalized anxiety disorde r) Medical History Essential hypertension Medical History Hyperlipidemia type II Medical History Lip ulcer Medical History Cervical spondylosis with radicu lopathy Medical History Elevated blood press ure reading in office without diagnosis of hypertension Medical History Body mass index (BMI) of 25.0 to 29.9 Medical History Benign prostatic hyp erplasia with lower urinary tract symptoms Medical History External hemorrhoid Medical History Hx of fracture of finger Medical History Trigger finger, left middle fing er Medical History Erectile dysfunction Surgical History Problem Title : past surgical history reviewed, Problem Description : past surgical history reviewed, Problem Comment : reviewed - no changes required, Problem Status : Resolved, Surgical History Problem Title : surg ical procedures, hx of, Problem Description : surgical procedures, hx of, Problem Comment : Left Mastectomy Fasciotomy Right Foot Arthroscopy Left Knee Arthroscopy Right Shoulder Colonoscopy 05/2012, Problem Status : Resolved, Surgical History Problem Title : surg ical procedures, hx of, Problem Description : surgical procedures, hx of, Problem Comment : Left Mastectomy Fasciotomy Right Foot Arthroscopy Left Knee Arthroscopy Right Shoulder Colonoscopy 06/2012, Problem Status : Active, Surgical History Problem Title : surg ical procedures, hx of, Problem Description : surgical procedures, hx of, Problem Comment : Left Mastectomy Fasciotomy Right Foot Arthroscopy Left Knee Arthroscopy Right Shoulder, Problem Status : Resolved, Surgical History Colonoscopy 09/2022 Hospitalization History SEE SURGICAL HX [facility] Other Hospital Discharge instructions No data available for this section [facility] [place] Progress note No data available for this section General Surgery [facility] Reason for referral (narrative)* Reason Referral for evaluat ion of suspected jorden rectal abscess/fistula along with a screening colonoscopy Diagnosis 1 Jorden-rectal abscess (K61.1) Diagnosis 2 Screening for colon cancer (Z12.11) Referral Organization [facility] [employer] dariela Referring Provider First Name Nayan Referring Provider Last Name Nazario Referring Provider Specialty Internal Ak teresa Referred Organization [facility] Referred Provider Warren Medina Referred Address [address], [place],[address] Referred Provider Specialty Surgery Referral Priority Routine General Notes Mr. Donaldson present ed w/ rectal pain but denies abdominal pain, melena, hematochezia or tenesmus. His pain was limited to wiping. He was found to have a jorden rectal abscess, which responded to antibiotics. He is being referred for further evaluation of this condition as well as a screening colonoscopy [facility] Other Summary Purpose Family History Relationship Condition Age at Onset Recorded Date/T cinthia father Diabetes mellitus Unknown Unknown Not Specified Unknown Relationship Condition Age at Onset Recorded Date/T cinthia father Diabetes mellitus Unknown Unknown mother Unknown Advance Directives Advance Directive Response Recorded Date/ Time Advance Directives No October 6:18am Reason for Referral Reason *FU 06/07 Right sh oulder pain, Biceps injury Remote ruptured biceps tendon Diagnosis 1 Rupture of right bic eps tendon, initial encounter (S46.211A) Referral Organization [facility] [employer] dariela Referring Provider First Name Nayan Referring Provider Last Name Nazario Referring Provider Specialty Internal Ak teresa Referred Organization [facility] Referred Provider Josh Barrow Referred Address ,[place], [place],[address] Referred Provider Specialty Orthopedic S urgery Referral Priority Routine General Notes Agatha Ureña 01:57:10 PM >received today, notes locked, referral faxed P2P Chief Complaint and Reason for Visit Chief Complaint Amb Documentation Wellness Reason for Visit Benign prostatic hyp erplasia with nocturia Essential (primary) hypertension TEODORA (generalized anxiety disorder) Hyperlipidemia type II Screening PSA (prostate specific antigen) Wellness examination Chief Complaint Hemorrhoids, rectal Pain. Reason for Visit Hemorrhoids Rectal pain Chief Complaint Hemorrhoids, rectal Pain. Back Pain Reason for Visit Hemorrhoids Rectal pain Additional Source Comments (unrecognized sect ion and content) No Status Records FoundNo Status Records Found INFORMATION SOURCE (unrecogn ized section and content) DATE CREATED AUTHOR 09/25/2020 [facility] DATE CREATED AUTHOR AUTHOR'S THU ATSTEVE 10/31/2022 [facility] REASON FOR VISIT (unrecogniz ed section and content) Lower Back PainRight Arm Bic epHemorrhoids1 Week Check UpReferralReferral1 Week Check UpUANo Information Patient Care team informatio n (unrecognized section and content) Team Status: Active Member Role Status Dates Nayan Lange DO Primary Care Provider Active Team Status: Inactive Member Role Status Dates Nayan Lange DO Primary Care Provider Active Start: October 11, 2023 End: October 11, 2023 Miranda Walsh MD Attending Provider Active Start: October 11, 2023 End: October 11, 2023 Team Status: Active Member Role Status Dates Provider Conversion Attending Provider Active St art: March 26, 2023 Team Status: Active Member Role Status Dates Nayan Lange DO Primary Care Provider Active Start: April 19, 2023 DENA Armendariz Attending Provider Active St art: April 19, 2023 Team Status: Inactive Member Role Status Dates Nayan Lange DO Primary Care Provide r, Attending Provider Active Start: May 21, 2023 End: May 21, 2023 Team Status: Inactive Member Role Status Lois Lange DO Primary Care Provide r, Attending Provider Active Start: November 05, 2023 End: November 05, 2023 Goals (unrecognized section and content) Goals may be documented in a n alternate section FOR RECORDS PERTAINING TO PATIENTS WHO ARE OR HAVE BEEN ENROLLED IN A CHEMICAL DEPENDENCY/SUBSTANCEABUSE PROGRAM, SOME INFORMATION MAY BE OMITTED. This clinical summary was aggregated from multiple sources. Caution should be exercised in using it in the provision of clinical care. This summary normalizes information from multiple sources, and as a consequence, information in this document may materially change the coding, format and clinical context of patient data. In addition, data may be omitted in some cases. CLINICAL DECISIONS SHOULD BE BASED ON THE PRIMARY CLINICAL RECORDS. [employer] provides no warranty or guarantee of the accuracy or completeness of information in this document.
--- NOTE | 2024-01-04 13:15 | XR_ITS ---
[facility] [place] [id number] Patient Name: INA BOLAÑOS MRN: [id number] date: 1960 Sex: M Assigned Patient Location: [facility] Current Patient Location: Accession/Order Number: [id number] Exam Date: 01/04/2024 13:25 Report Date: 01/08/2024 07:27 At the request of: ESTEE MURRAY Procedure: XR lumbar spine 6V w bending EXAMINATION: XR lumbar spine 6V w bending HISTORY: Low Back Pain With Radiation COMPARISON: 03/20/2022 FINDINGS: BONES: Normal alignment with no acute fracture or spondylolisthesis. Mild spondylosis. Mild to moderate facet osteoarthropathy DISC SPACES: Normal. No significant disc height narrowing, subluxation, or endplate abnormality. PARASPINOUS: Negative. No paraspinous abnormality is seen. OTHER: No dynamic instability XR/XR lumbar spine 6V w bending IMPRESSION: Stable degenerative changes with no dynamic instability Electronically authenticated by: KAREEM COOPER Date: 01/08/2024 07:27
== END 2024-01-04 13:10 | disposition home or self-care (01) ==
LOC: RAD 13:11
PROVIDERS: PCP Internal Medicine; Visit Provider Internal Medicine
DX: M54.50 Low back pain, unspecified (principal); M51.369 Other intervertebral disc degeneration, lumbar region without mention of lumbar back pain or lower extremity pain
CPT/HCPCS: 72114

== ENCOUNTER 2024-01-15 12:21 | Outpatient (RCR) | payer OTHER, SELFPAY | END 2024-02-19 07:00 | disposition home or self-care (01) | LOC: PT 12:21 | PROVIDERS: PCP Internal Medicine; Visit Provider Internal Medicine | DX: M54.9 Dorsalgia, unspecified (principal); M54.50 Low back pain, unspecified; M25.551 Pain in right hip | CPT/HCPCS: 97010; 97014; 97110; 97161 ==

== ENCOUNTER 2024-04-04 13:47 | Outpatient (OUT) | payer OTHER, SELFPAY ==
--- NOTE | 2024-04-04 13:53 | MR_ITS ---
[address] [address] Patient Name: INA BOLAÑOS MRN: [id number] date: 1960 Sex: M Assigned Patient Location: MRI Current Patient Location: MRI Accession/Order Number: [id number] Exam Date: 04/04/2024 14:00 Report Date: 04/04/2024 15:01 At the request of: ESTEE MURRAY Procedure: MR lumbar spine wo con EXAMINATION: MR lumbar spine wo con HISTORY: Lumbar Back Pain With Radiculopathy Affecting Right Extremit COMPARISON: No relevant comparison available. TECHNIQUE: A variety of imaging planes and parameters were utilized for visualization of suspected pathology. FINDINGS: For the purposes of numbering, sagittal T2 image # 8 extends from the T11 vertebral body superiorly to the S4 level inferiorly. PARASPINAL AREA: Normal with no visible mass. BONES: Normal alignment with no acute fracture or spondylolisthesis. No bone edema. Mild to moderate degenerative spondylosis and facet osteoarthropathy CORD/CAUDA EQUINA: Normal caliber, contour, and signal intensity. DISC LEVELS: 12-L1: Disc desiccation. No disc bulge or herniation. No central or foraminal stenosis L1-L2: No significant disc/facet abnormality, spinal stenosis, or foraminal stenosis. L2-L3: Early degenerative disc disease is present without focal protrusion or neural impingement. L3-L4: No significant disc/facet abnormality, spinal stenosis, or foraminal stenosis. L4-L5: Disc desiccation. Posterior broad-based disc protrusion with annular tear extending up to 2.5 mm. Ligamentum flavum hypertrophy. No central canal stenosis. Mild narrowing of the right neural foramen. No left foraminal stenosis L5-S1: Disc desiccation. Posterior broad-based disc protrusion extending up to 2 mm. No central canal or foraminal stenosis MR/MR lumbar spine wo con IMPRESSION: Mild degenerative changes resulting in mild right L4-L5 foraminal stenosis Electronically authenticated by: KAREEM COOPER Date: 04/04/2024 15:01
--- OUTSIDE RECORDS SUMMARY | 2024-04-04 14:10 | XMS_ITS | CCD ---
Author Organization [facility] Care Team Providers Care Curriculum And Instruction Specialist Name Role Phone DR NAYAN LANGE Primary Care Unavailable NAZARIO, DR FONTANEZ Admitting Unavailable BALL, DR FONTANEZ Attending Unavailable NAZARIO, DR FONTANEZ Consulting Unavailable NAZARIO, DR FONTANEZ Admitting Unavailable NAZARIO, DR FONTANEZ Attending Unavailable NAZARIO, DR FONTANEZ Consulting Unavailable NAZARIO, DR FONTANEZ Primary Care Unavailable ALLISON, DR KAREEM Marc Consulting Unavailable Nazario, Nayna Unavailable NAYAN LANGE Primary Care Physician Warren MEDINA Attending Unavailable NZAARIO, NAYAN Referring Unavailable NILL, Warren Maxwell Attending Unavailable NAZARIO, NAYAN Referring Unavailable NILL, Warren Maxwell Attending Unavailable Nayan Lange MD Primary Care Provider KYLIE FARRAR Attending Unavailable Allergies Allergy Classification Reported Allergen(s) Allergy Type Date of Onset Reaction(s) Facility (9 sources) HMG-CoA reductase inhibitor Drug allergy Unknown [facility] Other (1 source) No Known Medication Allergies; Translations: [No Known Medication Allergies] Propensity to adverse reactions (disorder) [facility] Repository (2 sources) patient allergy list reviewed by nurse or physicia Propensity to adverse reactions 9 Comment:Done [facility] Other (3 sources) Penicillins Allergy to substance 4 nausea/vomitin g [facility] (3 sources) [id number]-BdX Reductase Inhibitor Allergy to substance 4 Unknown Reaction [facility] (2 sources) Penicillin G Drug Allergy 5 Unknown [facility] Medications Current Medications Medication Drug Class(es) Dates Sig (Normalized) Sig (Original) ALPRAZolam 0.5 mg oral tablet (20 sources) Benzodiazepine Start: 12-27-2023 take 2 tablets by mouth twice daily, then take 2 tablets by mouth once at bedtime Alprazolam 0.5 mg tablet Active 0 .ROUTE .COMPLEX 120 December 27, 2023 12:31pm 1 PO bid and 2 q HS Start: 04-19-2023 End: 12-27-2023 ALPRAZolam (Xanax) 0.5 MG ta blet TAKE 1 TABLET TWICE A DAY AND 2 AT BEDTIME 12/27/2023 Active Start: 08-25-2022 take 1 tablet by misbah th twice [...] DAY AT BEDTIME Oral for 30 Active fenofibrate 160 mg oral tablet (2 sources) Peroxisome Proliferator Receptor alpha Agonist fenofibrate (Trig lide) 160 MG tablet 1 (one) time each day at the same time Active fluorouracil 50 mg/ml topical cream (2 sources) Nucleoside Metabolic Inhibitor Start: 04-01-2024 fluorouracil (Efudex) 5 % cream Indications: Actinic keratosis Apply to directed areas on the cheeks twice a day x 14 days. Dispense 30 day supply but only use for 14 days. 40 g 04/01/2024 Active Start: 04-01-2024 fluorouracil ( Efudex) 5 % cream Indications: Actinic keratosis Apply to directed areas on the cheeks twice a day x 14 days. Dispense 30 day supply but only use for 14 days. 40 g 04/01/2024 Active lovastatin 40 mg oral tablet (19 sources) HMG-CoA Reductase Inhibitor Start: 08-27-2023 take 1 tablet by mouth once daily in the evening Lovastatin 40 mg tablet Active 0 .ROUTE .COMPLEX 90 August 27, 2023 4:19pm TAKE 1 TABLET BY MOUTH EVERY DAY IN THE EVENING Start: 09-15-2022 End: 08-27-2023 take 1 tablet by mouth once daily in the evening Lovastatin 40 mg tablet Discontinued 40 MG PO Every evening May 17, 2023 11:00pm August 27, 2023 4:19pm PARoxetine hydrochloride 30 mg oral tablet (20 sources) Serotonin Reuptake Inhibitor Start: 04-19-2023 End: 12-21-2023 take 1 tablet by mouth once daily Paroxetine Hcl 30 mg tablet Active 0 .ROUTE .COMPLEX 90 December 21, 2023 5:51am TAKE 1 TABLET BY MOUTH EVERY DAY Start: 09-15-2022 End: 04-19-2023 take 1 tablet by mouth once daily Paroxetine Hcl 30 mg tablet Discontinued 30 MG PO Daily April 19, 2023 12:00am April 19, 2023 2:45pm predniSONE 20 mg oral tablet (11 sources) Start: 11-05-2023 Prednisone 20 mg tablet Active 20 MG PO As Directed November 04, 2023 11:00pm 1 tab tid w/ food x 3 days, then bid w/ food x 3 days, then qd w/ food x 3 days Start: 03-20-2022 take 1 tablet by misbah th twice daily predniSONE 20 MG 1 tablet Orally Twice daily w/ food for 5 days Feb, Not-Taking/PRN Completed/Discontinued Medications Medication Drug Class(es) Dates Sig (Normalized) Sig (Original) azithromycin 250 mg oral tablet (3 sources) Macrolide Antimicrobial Start: 05-22-2023 End: 10-11-2023 Azithromycin 250 mg tablet Discontinued 250 MG PO As Directed 07 31May 21, 2023 11:00pm October 11, 2023 8:25am baclofen 20 mg oral tablet (9 sources) gamma-Aminobutyric Acid-ergic Agonist Start: 03-20-2022 take 1 tablet by mouth at bedtime Baclofen 20 MG 1 Tablet Orally At bedtime for 7 days Feb, Not-Taking/PRN ciprofloxacin 500 mg oral tablet (11 sources) Quinolone Antimicrobial Start: 05-18-2023 End: 05-21-2023 take 1 tablet by mouth every twelve hours Ciprofloxacin Hcl 500 mg tablet Discontinued 500 MG PO Every 12 hours May 17, 2023 11:00pm May 21, 2023 10:48am Start: 08-21-2022 take 1 tablet by misbah every twelve hours Ciprofloxacin HCl 500 MG 1 tablet Orally every 12 hrs for 5 days Jul, Active diclofenac sodium 75 mg delayed release oral tablet (9 sources) Nonsteroidal Anti-inflammatory Drug take 1 tablet by mouth every twelve hours Diclofenac Sodium 75 MG 1 tablet as needed Orally Twice a day Not-Taking/PRN metroNIDAZOLE 500 mg oral tablet (11 sources) Nitroimidazole Antimicrobial Start: 024 End: take 1 tablet by mouth three times daily Metronidazole 500 mg tablet Discontinued 500 MG PO Three times daily May 17, 2023 11:00pm May 21, 2023 10:48am Start: 08-21-2022 take 1 tablet by misbah th every eight hours metroNIDAZOLE 500 MG 1 tablet Orally Three times a day for 5 days Jul, Active sulfamethoxazole 800 mg / trimethoprim 160 mg oral tablet (5 sources) Dihydrofolate Reductase Inhibitor Antibacterial, Sulfonamide Antimicrobial Start: 05-22-2023 End: 10-11-2023 take 1 tablet by mouth twice daily Sulfamethoxazole-Trimethoprim 800-160 mg tablet Discontinued 1 TAB PO Twice daily May 21, 2023 11:00pm October 11, 2023 8:26am Start: 03-26-2023 take 1 tablet by misbah th every twelve hours Sulfamethoxazole-Trimethoprim 800-160 MG 1 tablet Orally bid for 7 days Feb, Active tiZANidine 4 mg oral tablet (9 sources) Central alpha-2 Adrenergic Agonist take 1 tablet by mouth every eight hours tiZANidine HCl 4 MG 1 tablet as needed Orally Three times a day Not-Taking/PRN triamcinolone acetonide 0.001 mg/mg topical ointment (20 sources) Corticosteroid Start: 05-18-19 End: 05-21-19 Triamcinolone Acetonide 0.1 % ointment Discontinued 1 APPLIC TOPICAL Twice daily May 17, 2023 11:00pm May 21, 2023 10:49am Start: 11-17-2019 Kenalog -40 mg Oct, 40 mg Triamcinolone Ac etonide 0.1 % 1 application Externally Twice a day for 7 days Active Problems Active Problems Problem Classification Problem Date Documented Date Episodic/Chronic Anal and rectal conditions (15 sources) Rectal abscess; Translations: [Anorectal abscess] Resolved: 07-15-2019 Episodic Anxiety disorders (17 sources) Generalized anxiety disorder; Translations: [Generalized anxiety disorder] 09-18-2022 Chronic Diabetes mellitus without complication (3 sources) Impaired fasting glycemia; Translations: [Impaired fasting glucose] 05-28-2023 Episodic Diseases of mouth; excluding dental (11 sources) Lip ulcer; Translations: [Diseases of lips] Episodic Disorders of lipid metabolism (20 sources) Pure hypercholesterolemia; Translations: [Familial hypercholesterolemia] Onset: 03-31-2015 Resolved: 07-15-2019 09-18-2022 Chronic Essential hypertension (18 sources) Essential hypertension; Translations: [Essential (primary) hypertension] Chronic Fracture of upper limb (4 sources) Closed fracture of base of thumb; Translations: [Closed fracture of base of thumb (first) metacarpal bone(s)] Episodic Hemorrhoids (20 sources) External hemorrhoids; Translations: [Residual hemorrhoidal skin tags] 05-18-2023 Episodic Hyperplasia of prostate (17 sources) Lower urinary tract symptoms due to benign prostatic hypertrophy; Translations: [Benign prostatic hyperplasia with lower urinary tract symptoms] 09-18-2022 Chronic Miscellaneous mental health disorders (2 sources) Psychosexual dysfunction associated with inhibited sexual excitement; Translations: [Psychosexual dysfunction with inhibited sexual excitement] Onset: 10-22-2012 Chronic Neoplasms of unspecified nature or uncertain behavior (4 sources) Neoplastic disease; Translations: [Neoplasm of unspecified behavior of bone, soft tissue, and skin] 04-01-2024 Episodic Nonmalignant breast conditions (2 sources) Hypertrophy of breast; Translations: [Hypertrophy of breast] Episodic Osteoarthritis (13 sources) Osteoarthritis of joint of right shoulder [...] (healed) traumatic fracture] Episodic Other liver diseases (3 sources) Enzyme level - finding; Translations: [Transaminasemia] 05-28-2023 Episodic Other male genital disorders (16 sources) Male erectile dysfunction, unspecified; Translations: [Erectile dysfunction] 09-18-2022 Chronic Other nervous system disorders (1 source) Piriformis syndrome; Translations: [Lesion of sciatic nerve, unspecified lower limb] 11-05-2023 Chronic Other non-traumatic joint disorders (1 source) [...] conditions (not mental disorders or infectious disease) (13 sources) Encounter for screening for malignant neoplasm of prostate; Translations: [Patient encounter status] Onset: 09-23-2020 Resolved: 07-15-2019 Episodic Comment on above: PSA:08/2020 - 3.473/2 024 - 5.665/2023 - 2.8 (10.4%)10/2023 - 3.54 Other skin disorders (2 sources) Actinic keratosis; Translations: [Actinic keratosis] 04-01-2024 Episodic Residual codes; unclassified (2 sources) H/O: Disorder; Translations: [Personal history of other specified conditions] Episodic Spondylosis; intervertebral disc disorders; other back problems (20 sources) Other spondylosis with radiculopathy, cervical region; Translations: [Cervical spondylosis without myelopathy] Onset: 07-28-2020 Chronic Spondylosis; intervertebral disc disorders; other back problems (4 sources) Backache; Translations: [Dorsalgia, unspecified] Onset: 10-22-2012 11-05-2023 Episodic Sprains and strains (9 sources) Rupture of [...] history of diabetes mellitus] Resolved: 07-15-2019 Episodic Unclassified (1 source) Acute right-sided low back pain without sciatica M54.50 Results Test Name Value Interpretation Reference Range Facility No Panel Informationon 04-01 Type of biopsy: tangential Informed consent: discussed and consent obtained Informed consent comment: The risks and benefits of the biopsy were discussed. Risks include but are not limited to bleeding, infection, scarring, pain, and nerve damage. An opportunity to ask questions prior to the procedure was permitted and all questions were answered. Patient was prepped and draped in usual sterile fashion: area cleansed with alcohol. Anesthesia: the lesion was anesthetized in a standard fashion Anesthetic: 1% lidocaine w/ epinephrine 1-100,000 buffered w/ 8.4% NaHCO3 Instrument used: DermaBlade Hemostasis achieved with: electrodesiccation Outcome: patient tolerated procedure well Outcome comment: The specimen was placed in a prelabeled formalin container to be sent for pathology Post-procedure details: sterile dressing applied and wound care instructions given Post-procedure details comment: Emphasized need to contact clinic for any signs of infection, uncontrollable bleeding, or complications. Dressing type: bandage Additional details: Photo taken yes Amount of lidocaine used: 0.3 cc [employer] Outside Colonoscopyon 2022 Outside Colonoscopy [id number]: 127 Normal [facility] Reminderson 10-26-2022 Reminders - From: Heather Pepper LPN To: N - Clinical; Sent: 10/26/2022 09:57:03 EDT Show up: 09/24/2032 07:00:00 EDT Subject: colonoscopy recall Due Date/Time: 10/25/2032 07:00:00 EDT Reminder/Recall Patient due for screening colonoscopy 10/25/2032. Normal [facility] Consent for Procedure/Surger yon 09-21-2022 Consent for Procedure/Surgery [id number]: 127 Normal [facility] Facesheeton 09-21-2022 Facesheet [id number]: 127 Normal [facility] Ambulatory Visit Summaryon 0 09-20-2022 Ambulatory Visit Summary INA DONALDSON JR :1960 Visit Date:09/20/2022 Ambulatory Visit Instructions Your Care Team Attending Physician - Warren MEDINA MD Primary Care Physician - NAYAN LANGE DO Referring Physician - NAYAN LANGE DO This Is Your Medications List Contact [...] anxiety disorder Hyperlipidemia Overweight Pure hypercholesterolemia Normal [facility] General Surgery Office/Clini c Noteon 09-20-2022 General [...] mellitus typ (more content not included)... Normal [facility] Comment on above: Result Comment: Elec tronically Signed By: SHANNAN HERNANDEZ, Warren Gonzales\Date and Time Signed: 09/20/22 16:54 EDT Physician Referralon 023 Physician Referral [id number]: 127 Normal [facility] CBC AUTO DIFFon 09-20-2020 BASO # 0.1 103/ul Normal 0.0-0.1 [facility] Comment on above: Performed By: #### C BC #### [facility] [address] [place] [address] Hailee Sally Basophils/100 WBC (Bld) 0.9 % Normal 0.2-2.0 [facility] Comment on above: Performed By: #### C BC #### [facility] [address], [place] [address] Hailee Sally EO # 0.3 103/ul Normal 0.0-0.7 [facility] Comment on above: Performed By: #### C BC #### [facility] [address], [place] [address] Hailee Sally Eosinophils/100 WBC (Bld) 4.8 % Normal 0.9-7.0 [facility] Comment on above: Performed By: #### C BC #### [facility] [address], [place] [address] Hailee Sally Erythrocyte distribution width (RBC) [Ratio] 12.4 % Normal 11.0-15.0 [facility] Comment on above: Performed By: #### C BC #### [facility] [address] [place] [address] Haileedaja Zavala Hematocrit (Bld) [Volume fraction] 47.8 % Normal 42.0-54.0 [facility] Comment on above: Performed By: #### C BC #### [facility] [address] [place] [address] Hailee Sally Hemoglobin (Bld) [Mass/Vol] 16.1 g/dL Normal 14.0-18.0 [facility] Comment on above: Performed By: #### C BC #### [facility] [address] [place] [address] Haileedaja Zavala IG # 0.02 10e3/ul Normal 0.00-0.03 [facility] Comment on above: Performed By: #### C BC #### [facility] [address] [place] [address] Hailee Sally IG % 0.4 % Normal 0.0-0.5 [facility] Comment on above: Performed By: #### C BC #### [facility] [address] [place] [address] Hailee Sally LYMPH # 1.8 103/ul Normal 1.2-3.8 [facility] Comment on above: Performed By: #### C BC #### [facility] [address] [place] [address] Hailee Zavala Lymphocytes/100 WBC (Bld) 32.0 % Normal 20.5-60.0 [facility] Comment on above: Performed By: #### C BC #### [facility] [address] [place] [address] Hailee Zavala MANUAL DIFF REQ NO Normal [facility] Comment on above: Performed By: #### C BC #### [facility] [address] [place] [address] Hailee Zavala MCH (RBC) [Entitic mass] 31.7 pg Normal 25.9-34.0 [facility] Comment on above: Performed By: #### C BC #### [facility] [address] [place] [id number] Hailee Zavala MCHC (RBC) [Mass/Vol] 33.7 g/dL Normal 29.9-35.2 [facility] Comment on above: Performed By: #### C BC #### [facility] [address] [place] [id number] Hailee Zavala MCV (RBC) [Entitic vol] 94.1 fL Critically high 80.0-94.0 [facility] Comment on above: Performed By: #### C BC #### [facility] [address] [place], [place] [id number] Hailee Zavala MONO # 0.7 103/ul Normal 0.3-0.8 [facility] Comment on above: Performed By: #### C BC #### [facility] [address] [place] [address] Hailee Zavala Monocytes/100 WBC (Bld) 12.6 % Critically high 1.7-12.0 [facility] Comment on above: Performed By: #### C BC #### [facility] [address] [place], [place] [id number] Hailee Zavala NEUT # 2.7 103/ul Normal 1.4-6.5 [facility] Comment on above: Performed By: #### C BC #### [facility] [address] [place], [place] [address] Hailee Zavala Neutrophils/100 WBC (Bld) 49.3 % Normal 43.0-75.0 [facility] Comment on above: Performed By: #### C BC #### [facility] [address] [place], [place] [id number] Hailee Zavala Platelet mean volume (Bld) [Entitic vol] 9.4 fL Critically low 9.5-13.5 [facility] Comment on above: Performed By: #### C BC #### [facility] [address] [place] [id number] Haileedaja Moctezumaen PLT 257 103/ul Normal 150-450 [facility] Comment on above: Performed By: #### C BC #### [facility] [address], [place] [address] Hailee Sally RBC 5.08 106/ul Normal 4.70-6.10 [facility] Comment on above: Performed By: #### C BC #### [facility] [address], [place] [address] Hailee Sally WBC 5.5 103/ul Normal 4.0-11.0 [facility] Comment on above: Performed By: #### C BC #### [facility] [address], [place] [address] Hailee Sally LIPID PROFILEon 09-20-2020 CHOL-HDL RATIO NORM SEE BELOW Normal [facility] Comment on above: Result Comment: 3.3 - 4.4 LOW RISK 4.4 - 7.1 AVERAGE RISK 7.1 - 11.0 MODERATE RISK >11.0 HIGH RISK Performed By: #### L IPID, CMP #### [facility] [address] [place], [place] [id number] Hailee Sally Cholesterol [Mass/Vol] 290 mg/dL Critically high <=200 [facility] Comment on above: Performed By: #### L IPID, CMP #### [facility] [address] [place] [address] Hailee Sally Cholesterol in HDL [Mass/Vol] 72 mg/dL Normal [facility] Comment on above: Performed By: #### L IPID, CMP #### [facility] [address] [place], [place] [id number] Hailee Sally Cholesterol in LDL [Mass/Vol] 195.8 mg/dL Normal [facility] Comment on above: Performed By: #### L IPID, CMP #### [facility] [address] [place] [address] Hailee Sally Cholesterol.total/ Cholesterol in HDL [Mass ratio] 4.0 {ratio} Normal [facility] Comment on above: Performed By: #### L IPID, CMP #### [facility] [address] [place], [place] [address] Hailee Sally HDL NORMAL > or = 60 mg/dl - LO W CARDIOVASCULAR RISK <40 mg/dl - HIGH CARDIOVASCULAR RISK Normal [facility] Comment on above: Performed By: #### L IPID, CMP #### [facility] [address] [place] [id number] Hailee Sally LDL CALC NORMAL SEE BELOW Normal [facility] Comment on above: Result Comment: <100 mg/dl OPTIMAL 100 - 129 mg/dl NEAR OR ABOVE OPTIMAL 130 - 159 mg/dl BORDERLINE HIGH 160 - 189 mg/dl HIGH >190 mg/dl VERY HIGH Performed By: #### L IPID, CMP #### [facility] [address] [place] [address] Hailee Sally Triglyceride [Mass/Vol] 111 mg/dL Normal <=150 [facility] Comment on above: Performed By: #### L IPID, CMP #### [facility] [address] [place] [address] Hailee Sally VLDL CALC 22.2 mg/dL Normal [facility] Comment on above: Performed By: #### L IPID, CMP #### [facility] [address] [place] [id number] Hailee Sally PROF 14(COMP METB)on 021 Albumin [Mass/Vol] 3.8 g/dL Normal 3.5-5.0 [facility] Comment on above: Performed By: #### L IPID, CMP #### [facility] [address] [place], [place] [address] Hailee Sally Albumin/Globulin [Mass ratio] 1.0 {ratio} Normal [facility] Comment on above: Performed By: #### L IPID, CMP #### [facility] [address] [place] [id number] Hailee Sally ALP [Catalytic activity/Vol] 64 U/L Normal 38-126 [facility] Comment on above: Performed By: #### L IPID, CMP #### [facility] [address] [place] [address] Hailee Sally ALT [Catalytic activity/Vol] 36 U/L Normal 21-72 [facility] Comment on above: Performed By: #### L IPID, CMP #### [facility] [address], [place] [address] Hailee Sally Anion gap [Moles/Vol] 13.0 mmol/L Normal [facility] Comment on above: Performed By: #### L IPID, CMP #### [facility] [address] [place] [id number] Hailee Sally AST [Catalytic activity/Vol] 56 U/L Normal 17-59 [facility] Comment on above: Performed By: #### L IPID, CMP #### [facility] [address] [place] [id number] Hailee Sally Bilirubin [Mass/Vol] 1.0 mg/dL Normal 0.2-1.3 [facility] Comment on above: Performed By: #### L IPID, CMP #### [facility] [address] [place] [address] Hailee Sally Calcium [Mass/Vol] 9.0 mg/dL Normal 8.4-10.2 [facility] Comment on above: Performed By: #### L IPID, CMP #### [facility] [address] [place] [address] Hailee Sally Chloride [Moles/Vol] 106 mmol/L Normal 98-107 [facility] Comment on above: Performed By: #### L IPID, CMP #### [facility] [address] [place] [id number] Hailee Sally CO2 [Moles/Vol] 29.4 mmol/L Normal 22.0-30.0 [facility] Comment on above: Performed By: #### L IPID, CMP #### [facility] [address] [place] [id number] Hailee Sally Creatinine [Mass/Vol] 1.00 mg/dL Normal 0.66-1.25 [facility] Comment on above: Performed By: #### L IPID, CMP #### [facility] [address] [place] [id number] Hailee Sally EGFR-AF VINCENTIAN >60 Normal >=60 [facility] Comment on above: Performed By: #### L IPID, CMP #### [facility] [address] [place] [id number] Hailee Sally EGFR-NON AF VINCENTIAN >60 Normal >=60 [facility] Comment on above: Performed By: #### L IPID, CMP #### [facility] [address] [id number] Hailee Sally Globulin (S) [Mass/Vol] 3.8 g/dL Normal [facility] Comment on above: Performed By: #### L IPID, CMP #### [facility] [address] [place] [address] Hailee Sally Glucose [Mass/Vol] 117 mg/dL Critically high 74-106 [facility] Comment on above: Performed By: #### L IPID, CMP #### [facility] [address] [place] [address] Hailee Sally Potassium [Moles/Vol] 5.4 mmol/L Critically high 3.4-5.0 [facility] Comment on above: Performed By: #### L IPID, CMP #### [facility] [address] [place] [address] Hailee Sally Protein [Mass/Vol] 7.6 g/dL Normal 6.1-8.2 [facility] Comment on above: Performed By: #### L IPID, CMP #### [facility] [facility] [address] [place] [address] Hailee Sally Sodium [Moles/Vol] 143 mmol/L Normal 137-145 [facility] Comment on above: Performed By: #### L IPID, CMP #### [facility] [address] [place] [address] Hailee Sally Urea nitrogen [Mass/Vol] 16.0 mg/dL Normal 9.0-20.0 [facility] Comment on above: Performed By: #### L IPID, CMP #### [facility] [address] [place], [place] [id number] Hailee Sally Urea nitrogen/Creatinin e [Mass ratio] 16.0 mg/mg Normal [facility] Comment on above: Performed By: #### L IPID, CMP #### [facility] [address] [address] Hailee Zavala XR CSPINE 2_3 VIEWSon 2020 XR CSPINE [...] by: KAREEM COOPER Date: 2020-07-28 11:20 Normal [facility] Vital Signs Date Time Vital Sign Value Performing Clinician Facility 03-18-2024 11:31-0500 Body height 172.72 cm [facility] 03-18-2024 11:31-0500 Body mass index (BMI) [Ratio] 30.7 kg/m2 [facility] 03-18-2024 11:31-0500 Body weight 91.73 kg [facility] 03-18-2024 11:31-0500 Diastolic blood pressure 83 mm[Hg] [facility] 03-18-2024 11:31-0500 Heart rate 82 /min [facility] 03-18-2024 11:31-0500 Respiratory rate 12 /min [facility] 03-18-2024 11:31-0500 Systolic blood pressure 130 mm[Hg] [facility] 11-05-2023 15:50-0400 Body height 172.72 cm [facility] 11-05-2023 15:50-0400 Body mass index (BMI) [Ratio] 28.5 kg/m2 [facility] 11-05-2023 15:50-0400 Body weight 85.27 kg [facility] 11-05-2023 15:50-0400 Diastolic blood pressure 85 mm[Hg] [facility] 11-05-2023 15:50-0400 Heart rate 86 /min [facility] 11-05-2023 15:50-0400 Respiratory rate 12 /min [facility] 11-05-2023 15:50-0400 Systolic blood pressure 138 mm[Hg] [facility] 10-11-2023 09:18-0400 Body height 172.72 cm [facility] 10-11-2023 09:18-0400 Body mass index (BMI) [Ratio] 27.9 kg/m2 [facility] 10-11-2023 09:18-0400 Body weight 83.46 kg [facility] 10-11-2023 09:18-0400 Diastolic blood pressure 83 mm[Hg] [facility] 10-11-2023 09:18-0400 Heart rate 76 /min [facility] 10-11-2023 09:18-0400 Systolic blood pressure 129 mm[Hg] [facility] 05-21-2023 11:49-0400 Body height 172.72 cm [facility] 05-21-2023 11:49-0400 Body mass index (BMI) [Ratio] 30.1 kg/m2 [facility] 05-21-2023 11:49-0400 Body weight 89.92 kg [facility] 05-21-2023 11:49-0400 Diastolic blood pressure 89 mm[Hg] [facility] 05-21-2023 11:49-0400 Heart rate 98 /min [facility] 05-21-2023 11:49-0400 Respiratory rate 12 /min [facility] 05-21-2023 11:49-0400 Systolic blood pressure 145 mm[Hg] [facility] 09-20-2022 14:56-0400 Blood Pressure Location [facility] [place] 09-20-2022 14:56-0400 Diastolic blood pressure 92 mm[Hg] [facility] [place] 09-20-2022 14:56-0400 Heart rate 72 /min [facility] [place] 09-20-2022 14:56-0400 Respiratory rate 16 /min Warren MEDINA [facility] [place] 09-20-2022 14:56-0400 Systolic blood pressure 132 mm[Hg] Warren LONGL [facility] [place] 08-28-2022 08:45-0400 Body height 172.72 cm Nayan Ball Other [facility] Other 08-28-2022 08:45-0400 Body mass index (BMI) [Ratio] 28.61 kg/m2 Nayan Ball Other [facility] Other 08-28-2022 08:45-0400 Body weight 85.37 kg Nayan Ball Other [facility] Other 08-28-2022 08:45-0400 Diastolic blood pressure 86 mm[Hg] Nayan Ball Other [facility] Other 08-28-2022 08:45-0400 Respiratory rate 12 /min Nayan Ball Other [facility] Other 08-28-2022 08:45-0400 Systolic blood pressure 126 mm[Hg] Nayan Ball Other [facility] Other 08-21-2022 09:30-0400 Body height 172.72 cm Nayan Ball Other [facility] Other 08-21-2022 09:30-0400 Body mass index (BMI) [Ratio] 28.61 kg/m2 Nayan Ball Other [facility] Other 08-21-2022 09:30-0400 Body weight 85.37 kg Nayan Ball Other [facility] Other 08-21-2022 09:30-0400 Diastolic blood pressure 88 mm[Hg] Nayan Ball Other [facility] Other 08-21-2022 09:30-0400 Respiratory rate 12 /min Nayan Ball Other [facility] Other 08-21-2022 09:30-0400 Systolic blood pressure 151 mm[Hg] Nayan Ball Other [facility] Other 05-31-2022 10:15-0400 Body height 172.72 cm Nayan Ball Other [facility] Other 05-31-2022 10:15-0400 Body mass index (BMI) [Ratio] 29.89 kg/m2 Nayan Ball Other [facility] Other 05-31-2022 10:15-0400 Body weight 89.18 kg Nayan Ball Other [facility] Other 05-31-2022 10:15-0400 Diastolic blood pressure 81 mm[Hg] Nayan Ball Other [facility] Other 05-31-2022 10:15-0400 SaO2% (BldA) [Mass fraction] 96 % Nayan Ball Other [facility] Other 05-31-2022 10:15-0400 Systolic blood pressure 123 mm[Hg] Nayan Ball Other [facility] Other 03-20-2022 12:30-0500 Body height 172.72 cm Nayan Ball Other [facility] Other 03-20-2022 12:30-0500 Body mass index (BMI) [Ratio] 29.16 kg/m2 Nayan Ball Other [facility] Other 03-20-2022 12:30-0500 Body weight 87 kg Nayan Ball Other [facility] Other 03-20-2022 12:30-0500 Diastolic blood pressure 76 mm[Hg] Nayan Lange Other [facility] Other 03-20-2022 12:30-0500 Respiratory rate 12 /min Nayan Lange Other [facility] Other 03-20-2022 12:30-0500 Systolic blood pressure 118 mm[Hg] Nayan Lange Other [facility] Other Encounters Encounter Date Encounter Type Care Provider Facility Start: 04-01-2024 End: 04-01-2024 Zenon Farrar MD Work Phone: [facility] Start: 04-01-2024 End: 04-01-2024 Zenon Farrar MD Work Phone: [facility] Start: 04-01-2024 End: 04-01-2024 Office outpatient new 30 minutes Kylie Farrar MD Work Phone: [facility] Comment on above: Actinic keratosis (P rimary Dx); Neoplasm of unspecified behavior of bone, soft tissue, and skin; Neoplasm of uncertain behavior of skin Start: 04-01-2024 End: 04-01-2024 ambulatory KYLIE FARRAR Not Available Start: 03-18-2024 End: 03-18-2024 ambulatory [facility] Work Phone: Start: 03-18-2024 End: 03-18-2024 Patient encounter procedure [facility] Physician [facility] Work Phone: Start: 11-05-2023 End: 11-05-2023 ambulatory [facility] Work Phone: Start: 11-05-2023 End: 11-05-2023 Patient encounter procedure [facility] Physician [facility] Work Phone: Start: 10-11-2023 End: 10-11-[address] [facility] Work Phone: Start: 10-11-2023 End: 10-11-2023 Patient encounter procedure [facility] Physician [facility] Gastroenterology Work Phone: Start: 05-21-2023 End: 05-21-2023 ambulatory [facility] Work Phone: Start: 05-21-2023 End: 05-21-2023 Encounter for general adult medical examination without abnormal findings [facility] Start: 05-21-2023 End: 05-21-2023 Patient encounter procedure [facility] Physician [facility] Work Phone: Start: 04-19-2023 Non-patient / Non-visit [facility] Physician [facility] Work Phone: Start: 03-26-2023 End: 03-26-2023 ambulatory Nayan Lange Other [facility] Other Start: 03-26-2023 Nursing evaluation o f patient and report Nayan Lange [facility] Start: 03-26-2023 Telephone encounter Nayan COLLINS [facility] Start: 03-26-2023 Patient encounter procedure [facility] Physician [facility] Start: 10-25-2022 End: 10-26-2022 ambulatory Warren R NILL Facility:[id number] Start: 09-20-2022 End: 09-21-2022 ambulatory Warren R NILL Facility: [facility] Start: 09-20-2022 End: 09-20-2022 Patient encounter procedure Warren R NILL General Surgery Nill[facility] Start: 09-14-2022 ambulatory Warren R NILL Facility : [facility] Start: 09-12-2022 End: 09-12-2022 ambulatory Nayan Nazario Other [facility] Other Start: 09-12-2022 Telephone encounter Nayan COLLINS [facility] Start: 09-01-2022 End: 09-01-2022 ambulatory Nayan Lange Other [facility] Other Start: 09-01-2022 Telephone encounter Nayan Lange [facility] Start: 08-28-2022 End: 08-28-2022 ambulatory Nayan Lange Other [facility] Other Start: 08-28-2022 Office outpatient visit 15 minutes Nayan Lange [facility] Start: 08-21-2022 End: 08-21-2022 ambulatory Nayan Nazario Other [facility] Other Start: 08-21-2022 Office outpatient visit 15 minutes Nayan Lange [facility] Start: 05-31-2022 End: 05-31-2022 ambulatory Nayan Lange Other [facility] Other Start: 05-31-2022 Office outpatient visit 15 minutes Nayan Nazario [facility] Start: 03-20-2022 End: 03-20-2022 ambulatory Nayan Lange Other [facility] Other Start: 03-20-2022 Office outpatient visit 15 minutes Nayan Lange [facility] Start: 10-08-2021 Adult health examination Nayan Lange Other [facility] Other Start: 09-23-2020 Encounter for genera l adult medical examination without abnormal findings DR NAYAN LANGE [facility] Start: 09-20-2020 End: 09-21-[address] NAYAN LANGE Facility:[facility] Start: 09-20-2020 End: 09-21-2020 Encounter for general adult medical examination without abnormal findings DR NAYAN LANGE Facility:[facility] Start: 07-28-2020 End: 07-29-[address] NAYAN LANGE Facility:[facility] Procedures Date Procedure Procedure Detail Performing Clinician Start: 04-01-2024 SKIN / NAIL BIOPSY Sampsonjeanne Farrar MD Work Phone: Start: 07-26-[address] ALONDRA WILSON NAZARIO Comment on above: Performed By: #### [facility] #### [facility] [address], [place] [address] Hailee Zavala Start: 10-06-2016 End: 07-15-2019 Screening for malignant neoplasm of prostate Nayan Lange Other Start: 01-29-2014 End: 07-15-2019 General examination of patient Nayan Lange Other Start: 06-26-2012 Colonoscopy Warren NI LL Arthroscopy of knee Warren NILL Depression screening Smitha Lange Other Excisional biopsy of breast mass Warren NILL Fasciotomy of foot Warren Gonzalez ILL Screening for malign ant neoplasm of prostate Nayan Lange Other Structure of right g lenoid labrum Warren LONGL Plan of Treatment Date Care Activity Detail Author Start: 06-30-2024 End: 06-30-2024 Patient encounter procedure 06/30/2024 9:45 AM EDT Office Visit [facility] [address] [place] [address] Kylie Farrar MD [address] [place] [address] [facility] Start: 04-01-2024 End: 04-01-2024 Patient encounter procedure 04/01/2024 9:35 AM EST Office Visit [facility] [address] [place] [address] Kylie Farrar MD [address] [place] [address] Arrived [facility] Comment on above: Arrived Comprehensive metabo lic 2000 panel - Serum or Plasma [facility] Dermatopathology exam Dermatopat hology exam Pathology and Cytology Timed Neoplasm of unspecified behavior of bone, soft tissue, and skin Release Upon Ordering for 1 Occurrences starting 04/01/2024 [facility] Work Phone: Comment on above: Release Upon Ordering for 1 Occurrences starting 04/01/2024 [facility] Payers Date Payer Category Payer Private Health Insurance [employer] [id number] 1960 Unknown [id number] 1959 Unknown [id number] 1959 Unknown [id number] 1959 Unknown [id number] 1959 Unknown [id number] 1959 Unknown [id number] 1959 Unknown [id number] Self-pay Self Pay [id number] Social History Date Type Detail Facility Unknown if ever smoked [facility] Other Start: 04-01-2024 Sex Assigned At [facility] Start: 09-20-2022 End: 04-01-2024 Tobacco smoking status Never smoked tobacco (finding) [facility] Tobacco smoking status Never [facility] Start: 1960 Sex Assigned At Male [facility] Start: 03-18-2024 Sex Male (finding) [facility] Tobacco smoking status NHIS Tobacco smoking consumption unknown [facility] Start: 1960 Sex assigned at Not on file [facility] Start: 04-01-2024 Tobacco use and exposure Smokeless tobacco non-user [facility] Start: 04-01-2024 History of Social function [facility] Functional Status Date Assessment Result Facility 09-20-2022 Functional Status N/A [facility] Clinical Notes 10-06-2016 to 04-01-2024 Kylie Farrar MD - 04/01/2024 9:35 AM EST Note Date & Type Note Facility 04-01-2024 History of Presen t illness Narrative Images from the original note were not included. Lesions: Location: Face Duration: Few months Quality: denies pain, denies itch, denies bleeding Associated symptoms: red, scaly Treatments: none New patient All pertinent medical history, medications, and allergies were reviewed. General Exam: alert, oriented to person, place, and time, normal affect, well appearing Unaccompanied A focused exam completed based on patient reported problems, see below: 1. Actinic keratosis Head - Anterior (Face) Erythematous scaly papules Patient was counseled regarding these sun-induced growths that can develop into squamous cell carcinoma if left untreated. Discussed treatment options, including cryotherapy and topical preparations. It was emphasized that any treated lesions that fail to resolve should be re-evaluated. Patient elected for treatment with Efudex as this has become a chronic issue. Educated on Efudex treatment. Apply to Cheeks twice a day for two weeks. Discussed that treated areas will become red, crusty, and inflamed. If areas become too uncomfortable, patient may use OTC hydrocortisone cream to help decrease irritation and can discontinue treatment early. Sun exposure should be avoided during treatment. Patient instructed to contact office for any questions or issues during treatment. Lesions that fail to resolve once treated area is healed should be re-evaluated in the office. Handout given to patient Related Medications fluorouracil (Efudex) 5 % cream Apply to directed areas on the cheeks twice a day x 14 days. Dispense 30 day supply but only use for 14 days. 2. Neoplasm of unspecified behavior of bone, soft tissue, and skin Right Malar Cheek Irregularly pigmented papule Lesion biopsy Type of biopsy: tangential Informed consent: discussed and consent obtained Informed consent comment: The risks and benefits of the biopsy were discussed. Risks include but are not limited to bleeding, infection, scarring, pain, and nerve damage. An opportunity to ask questions prior to the procedure was permitted and all questions were answered. Patient was prepped and draped in usual sterile fashion: area cleansed with alcohol. Anesthesia: the lesion was anesthetized in a standard fashion Anesthetic: 1% lidocaine w/ epinephrine 1-100,000 buffered w/ 8.4% NaHCO3 Instrument used: DermaBlade Hemostasis achieved with: electrodesiccation Outcome: patient tolerated procedure well Outcome comment: The specimen was placed in a prelabeled formalin container to be sent for pathology Post-procedure details: sterile dressing applied and wound care instructions given Post-procedure details comment: Emphasized need to contact clinic for any signs of infection, uncontrollable bleeding, or complications. Dressing type: bandage Additional details: Photo taken yes Amount of lidocaine used: 0.3 cc Specimen A - Dermatopathology exam Differential Diagnosis: lentigo vs lentigo maligna Check Margins: No Size of lesion: 0.4 x 0.2 cm 3. Neoplasm of uncertain behavior of skin Dorsum of Nose Pigmented macule Patient reports he has had this lesion for a long time, has not noticed any changes, would like to monitor. Photo taken today, plan to recheck at 3 month follow up. Notify office if area is changing prior to next visit. Next Visit: 3 months - FBSE and recheck nose documented in this encounter [facility] 10-11-2023 Evaluation note Authored October 11, 2023 9: 47am 62-year-old man referred to the GI clinic for evaluation of rectal pain. Patient has been having discomfort in the rectum for the last 2 months. He had a colonoscopy in [place] a year ago which was normal as per patient. Will arrange for [facility] Work Phone: [phone]) 510-974406-15-2024 Evaluation note* Author Imad [facility] Authored October 11, 2023 9: 47am 62-year-old man referred to the GI clinic for evaluation of rectal pain. Patient has been having discomfort in the rectum for the last 2 months. He had a colonoscopy in [place] a year ago which was normal as per patient. Will arrange for [facility] Work Phone: [phone] 868-339107-03-2023 Evaluation note* Encounter Date Diagnosis Assessment Notes Treatment Notes Treatment Clinical Notes Aug, Jorden-rectal abscess (ICD-10 - K61.1) Much improved clinically. He is to continues w/ soaking in tub and wiping w/ Tucks wipes. He is to avoid straining Resume normal activity as tolerated Notify office w/ any recurrent symptoms Rx w/ additional 5 days of antibiotics [facility] Other 07-03-2023 Evaluation note* Encounter Date Diagnosis [...] Screening for colon cancer (ICD-10 - Z12.11) [facility] Other 06-26-2023 Evaluation note* Encounter Date Diagnosis Assessment Notes Treatment Notes Treatment Clinical Notes Jul, Jorden-rectal abscess (ICD-10 - K61.1) Sitz baths daily, gentle cleansing. Avoid straining Recheck in 1 wk. [facility] Other 04-05-2023 Evaluation note* Encounter Date Diagnosis Assessment Notes Treatment Notes Treatment Clinical Notes May, Rupture of right biceps tendon, initial encounter (ICD-10 - S46.211A) Refer to Orthopedics for guidance on rehabilitation. May, Acute pain of right shoulder (ICD-10 - M25.511) Ice/heat and Advil as needed. [facility] Other 01-23-2023 Evaluation note* Encounter Date Diagnosis [...] continue exercise to achieve/maintain a normal BMI. [facility] Other 08-11-2017 Evaluation note* Encounter Date Diagnosis Assessment Notes Treatment Notes Treatment Clinical Notes Sep, Dysuria (ICD-10 - R30.0) Dysuria [facility] Other Evaluation + Plan note No data available for this section [facility] Evaluation noteNo [employer] Other Evaluation note* Diagnosis Onset Date Resolution Status Benign prostatic hyperplasia with nocturia acute Essential (primary) hypertension acute TEODORA (generalized anxiety disorder) acute Hyperlipidemia type II acute Screening PSA (prostate specific antigen) noneactive Wellness examination noneact roberto [facility] Work Phone: Evaluation note* Diagnosis Onset Date Resolution Status Admit Date Low back pain with radiation acute March 18, 2024 11:23am [facility] Work Phone: Evaluation note* Diagnosis Actinic keratosis- Primary Neoplasm of unspecified behavior of bone, soft tissue, and skin Neoplasm of uncertain behavior of skin [facility] - [facility]orted* Type Description Date [...] KNEE ARTHROSCOPY Hospitalization History SEE SURGICAL HX [facility] Other History general Narrative - Reported* Type [...] Colonoscopy 09/2022 Hospitalization History SEE SURGICAL HX [facility] Other Hospital Discharge instructions No data available for this section [facility] [place] Progress note No data available for this section [facility] [place] Reason for referral (narrative)* Reason Referral for evaluat ion of suspected jorden rectal abscess/fistula along with a screening colonoscopy Diagnosis 1 Jorden-rectal abscess (K61.1) Diagnosis 2 Screening for colon cancer (Z12.11) Referral Organization [facility] dariela Referring Provider First Name Nayan Referring Provider Last Name Nazario Referring Provider Specialty Internal Wi dicine Referred Organization [facility] Referred Provider Warren Medina Referred Address [address] [facility],[place], [place],[address] Referred Provider Specialty Surgery Referral Priority Routine General Notes Mr. Donaldson present ed w/ rectal pain but denies abdominal pain, melena, hematochezia or tenesmus. His pain was limited to wiping. He was found to have a jorden rectal abscess, which responded to antibiotics. He is being referred for further evaluation of this condition as well as a screening colonoscopy [facility] Other Summary Purpose Family History No Family History Records Found Relationship Condition Age at Onset Recorded Date/T cinthia father Diabetes mellitus Unknown Unknown Not Specified Unknown Relationship Condition Age at Onset Recorded Date/T cinthia father Diabetes mellitus Unknown Unknown mother Unknown Advance Directives No Advanced Directives Records Found Advance Directive Response Recorded Date/ Time Advance Directives No October 6:18am Advance Directive Response Recorded Date/ Time Advance Directives No October 5:18am Reason for Referral Reason *FU 06/07 Right sh oulder pain, Biceps injury Remote ruptured biceps tendon Diagnosis 1 Rupture of right bic eps tendon, initial encounter (S46.211A) Referral Organization [facility] Nazario [facility] dariela Referring Provider First Name Nayan Referring Provider Last Name Nazario Referring Provider Specialty Internal Me dicine Referred Organization [facility] Referred Provider Josh Barrow Referred Address ,[place], [place],[address] Referred Provider Specialty Orthopedic S urgery Referral [...] Pain Reason for Visit Hemorrhoids Rectal pain Chief Complaint Admit Date back pain discuss MRI March 18, 2024 11:23am Reason for Visit Admit Date Low back pain with radiation February 11:23am Additional Source Comments (unrecognized sect ion and content) No Status Records FoundNo Status Records FoundNo Status Records Found INFORMATION SOURCE (unrecogn ized section and content) DATE CREATED AUTHOR 09/25/2020 [facility] DATE CREATED AUTHOR AUTHOR'S ORGANIZ ATION 10/31/2022 [facility] DATE CREATED AUTHOR AUTHOR'S ORGANIZ ATION 04/03/2024 [facility] d[facility] Specialists EPIC REASON FOR VISIT (unrecogniz ed section and content) Reason Comments Skin Problem Patient Care team informatio n (unrecognized section and content) Team Status: Active Member Role Status Dates Nayan Lange DO Primary Care Provider Active Team Status: Inactive Member Role Status Dates Naayn Lange DO Primary Care Provider Active Start: [...] November 05, 2023 End: November 05, 2023 Team Status: Inactive Member Role Status Dates Nayan Lange DO Primary Care Provide r, Attending Provider Active Start: March 18, 2024 End: March 18, 2024 [employer]ulum [employer] Instruction Specialist Relationship Specialty Start Date End Date Nayan Lange MD [address] [place] [address] PCP - General 03/29/24 Curriculum And Instruction Specialist Relationship Specialty Start Date End Date Nayan Lange MD [address] [place] [address] PCP - General 03/29/24 Goals (unrecognized section and content) Goals may [...] BE BASED ON THE PRIMARY CLINICAL RECORDS. [facility] [employer] [facility]. provides no warranty or guarantee of the accuracy or completeness of information in this document.
== END 2024-04-04 13:48 | disposition home or self-care (01) ==
LOC: MRI 13:47
PROVIDERS: PCP Internal Medicine; Visit Provider Internal Medicine
DX: M54.16 Radiculopathy, lumbar region (principal); M47.816 Spondylosis without myelopathy or radiculopathy, lumbar region; M51.369 Other intervertebral disc degeneration, lumbar region without mention of lumbar back pain or lower extremity pain
CPT/HCPCS: 72148

== ENCOUNTER 2024-05-22 11:10 | Outpatient (OUT) | payer OTHER, SELFPAY ==
--- OUTSIDE RECORDS SUMMARY | 2024-05-22 11:29 | XMS_ITS | CCD ---
Author Organization [facility] Care Team Providers Care Power Supply Engineer Name Role Phone DR NAYAN LANGE Primary Care Unavailable NAZARIO, DR FONTANEZ Admitting Unavailable BALL, DR FONTANEZ Attending Unavailable NAZARIO, DR FONTANEZ Consulting Unavailable NAZARIO, DR FONTANEZ Admitting Unavailable NAZARIO, DR FONTANEZ Attending Unavailable NAZARIO, DR FONTANEZ Consulting Unavailable NAZARIO, DR FONTANEZ Primary Care Unavailable ALLISON, DR KAREEM Marc Consulting Unavailable Nazario, Nayan Unavailable NAYAN LANGE Primary Care Physician Warren MEDINA Attending Unavailable NAZARIO, NAYAN Referring Unavailable NILL, Warren Maxwell Attending Unavailable NAZARIO, NAYAN Referring Unavailable NILL, Warren Maxwell Attending Unavailable Nayan Lange MD Primary Care Provider KYLIE FARRAR Attending Unavailable Allergies Allergy Classification Reported Allergen(s) Allergy Type Date of Onset Reaction(s) Facility (9 sources) HMG-CoA reductase inhibitor Drug allergy Unknown [facility] [facility] Other (1 source) No Known Medication Allergies; Translations: [No Known Medication Allergies] Propensity to adverse reactions (disorder) [facility] Repository (2 sources) patient allergy list reviewed by nurse or physicia Propensity to adverse reactions 9 Comment:Done [employer] Other (3 sources) Penicillins Allergy to substance 4 nausea/vomitin g [facility] (3 sources) Qaytcne-WUL-EiT Reductase Inhibitor Allergy to substance 4 Unknown Reaction [facility] (2 sources) Penicillin G Drug Allergy [...] yes Amount of lidocaine used: 0.3 cc AIT [employer] Outside Colonoscopyon 2022 Outside Colonoscopy [id number]: 127 Normal [facility] Reminderson 10-26-2022 Reminders - From: Heather Pepper LPN To: N - Clinical; Sent: 10/26/2022 09:57:03 EDT Show up: 09/24/2032 07:00:00 EDT Subject: colonoscopy recall Due Date/Time: 10/25/2032 07:00:00 EDT Reminder/Recall Patient due for screening colonoscopy 10/25/2032. Normal [facility] Consent for Procedure/Surger yon 09-21-2022 Consent for Procedure/Surgery [id number]: 127 Normal [facility] Facesheeton 09-21-2022 Facesheet [id number]: 127 Normal [facility] Ambulatory Visit Summaryon 0 09-20-2022 Ambulatory Visit [...] disorder Hyperlipidemia Overweight Pure hypercholesterolemia Normal [facility] General Surgery Office/Clini c Noteon 09-20-2022 General [...] mellitus typ (more content not included)... Normal [facility] Comment on above: Result Comment: Elec tronically Signed By: SHANNAN HERNANDEZ, Warren Gonzales\Date and Time Signed: 09/20/22 16:54 EDT Physician Referralon 023 Physician Referral [id number]: 127 Normal [facility] CBC AUTO DIFFon 09-20-2020 BASO # 0.1 103/ul Normal 0.0-0.1 [facility] Comment on above: Performed By: #### C BC #### [facility] [address] [place] [address] Hailee Sally Basophils/100 WBC (Bld) 0.9 % Normal 0.2-2.0 [facility] Comment on above: Performed By: #### C BC #### [facility] [address] [place], [place] [address] Hailee Sally EO # 0.3 103/ul Normal 0.0-0.7 [facility] Comment on above: Performed By: #### C BC #### [facility] [address] [place], [place] [address] Hailee Sally Eosinophils/100 WBC (Bld) 4.8 % Normal 0.9-7.0 [facility] Comment on above: Performed By: #### C BC #### [facility] [address] [place], [place] [address] Hailee Sally Erythrocyte distribution width (RBC) [Ratio] 12.4 % Normal 11.0-15.0 [facility] Comment on above: Performed By: #### C BC #### [facility] [address] [place] [address] Haileedaja Zavala Hematocrit (Bld) [Volume fraction] 47.8 % Normal 42.0-54.0 [facility] Comment on above: Performed By: #### C BC #### [facility] [address] [place] [address] Hailee Sally Hemoglobin (Bld) [Mass/Vol] 16.1 g/dL Normal 14.0-18.0 [facility] Comment on above: Performed By: #### C BC #### [facility] [address] [place] [address] Haileedaja Zavala IG # 0.02 10e3/ul Normal 0.00-0.03 [facility] Comment on above: Performed By: #### C BC #### [facility] [address] [place] [address] Hailee Sally IG % 0.4 % Normal 0.0-0.5 [facility] Comment on above: Performed By: #### C BC #### [facility] [address] [place] [address] Hailee Sally LYMPH # 1.8 103/ul Normal 1.2-3.8 [facility] Comment on above: Performed By: #### C BC #### [facility] [address] [place] [address] Hailee Zavala Lymphocytes/100 WBC (Bld) 32.0 % Normal 20.5-60.0 [facility] Comment on above: Performed By: #### C BC #### [facility] [address] [place] [address] Hailee Zavala MANUAL DIFF REQ NO Normal [facility] Comment on above: Performed By: #### C BC #### [facility] [address] [place] [address] Hailee Zavala MCH (RBC) [Entitic mass] 31.7 pg Normal 25.9-34.0 [facility] Comment on above: Performed By: #### C BC #### [facility] [address] [place] [id number] Hailee Zavala MCHC (RBC) [Mass/Vol] 33.7 g/dL Normal 29.9-35.2 [facility] Comment on above: Performed By: #### C BC #### [facility] [address] [place] [id number] Hailee Zavala MCV (RBC) [Entitic vol] 94.1 fL Critically high 80.0-94.0 [facility] Comment on above: Performed By: #### C BC #### [facility] [address] [place], [place] [id number] Hailee Zavala MONO # 0.7 103/ul Normal 0.3-0.8 [facility] Comment on above: Performed By: #### C BC #### [facility] [address] [place] [address] Hailee Zavala Monocytes/100 WBC (Bld) 12.6 % Critically high 1.7-12.0 [facility] Comment on above: Performed By: #### C BC #### [facility] [address] [place], [place] [id number] Hailee Zavala NEUT # 2.7 103/ul Normal 1.4-6.5 [facility] Comment on above: Performed By: #### C BC #### [facility] [address] [place], [place] [id number] Hailee Zavala Neutrophils/100 WBC (Bld) 49.3 % Normal 43.0-75.0 [facility] Comment on above: Performed By: #### C BC #### [facility] [address] [place], [place] [id number] Hailee Zavala Platelet mean volume (Bld) [Entitic vol] 9.4 fL Critically low 9.5-13.5 [facility] Comment on above: Performed By: #### C BC #### [facility] [address] [place] [id number] Haileedaja Moctezumaen PLT 257 103/ul Normal 150-450 [facility] Comment on above: Performed By: #### C BC #### [facility] [address] [place], [place] [address] Hailee Sally RBC 5.08 106/ul Normal 4.70-6.10 [facility] Comment on above: Performed By: #### C BC #### [facility] [address] [place], [place] [address] Hailee Sally WBC 5.5 103/ul Normal 4.0-11.0 [facility] Comment on above: Performed By: #### C BC #### [facility] [address] [place], [place] [address] Hailee Sally LIPID PROFILEon 09-20-2020 CHOL-HDL RATIO NORM SEE BELOW Normal [facility] Comment on above: Result Comment: 3.3 - 4.4 LOW RISK 4.4 - 7.1 AVERAGE RISK 7.1 - 11.0 MODERATE RISK >11.0 HIGH RISK Performed By: #### L IPID, CMP #### [facility] [address] [place], [place] [id number] Hailee Sally Cholesterol [Mass/Vol] 290 mg/dL Critically high <=200 [facility] Comment on above: Performed By: #### L IPID, CMP #### [facility] [address] [place] [address] Hailee Sally Cholesterol in HDL [Mass/Vol] 72 mg/dL Normal [facility] Comment on above: Performed By: #### L IPID, CMP #### [facility] [address] [place], [place] [phone] Hailee Sally Cholesterol in LDL [Mass/Vol] 195.8 mg/dL Normal [facility] Comment on above: Performed By: #### L IPID, CMP #### [facility] [address] [place] [address] Hailee Sally Cholesterol.total/ Cholesterol in HDL [Mass ratio] 4.0 {ratio} Normal [facility] Comment on above: Performed By: #### L IPID, CMP #### [facility] [address] [place], [place] [address] Hailee Sally HDL NORMAL > or = 60 mg/dl - LO W CARDIOVASCULAR RISK <40 mg/dl - HIGH CARDIOVASCULAR RISK Normal [facility] Comment on above: Performed By: #### L IPID, CMP #### [facility] [address] [place] [id number] Hailee Sally LDL CALC NORMAL SEE BELOW Normal [facility] Comment on above: Result Comment: <100 mg/dl OPTIMAL 100 - 129 mg/dl NEAR OR ABOVE OPTIMAL 130 - 159 mg/dl BORDERLINE HIGH 160 - 189 mg/dl HIGH >190 mg/dl VERY HIGH Performed By: #### L IPID, CMP #### [facility] [address] [place] [address] Hailee Sally Triglyceride [Mass/Vol] 111 mg/dL Normal <=150 [facility] Comment on above: Performed By: #### L IPID, CMP #### [facility] [address] [place] [address] Hailee Sally VLDL CALC 22.2 mg/dL Normal [facility] Comment on above: Performed By: #### L IPID, CMP #### [facility] [address] [place] [id number] Hailee Sally PROF 14(COMP METB)on 021 Albumin [Mass/Vol] 3.8 g/dL Normal 3.5-5.0 [facility] [place] [facility] Comment on above: Performed By: #### L IPID, CMP #### [facility] [address] [place], [place] [phone] Hailee Sally Albumin/Globulin [Mass ratio] 1.0 {ratio} Normal [facility] Comment on above: Performed By: #### L IPID, CMP #### [facility] [address] [place] [id number] Hailee Sally ALP [Catalytic activity/Vol] 64 U/L Normal 38-126 [facility] Comment on above: Performed By: #### L IPID, CMP #### [facility] [address] [place] [address] Hailee Sally ALT [Catalytic activity/Vol] 36 U/L Normal 21-72 [facility] Comment on above: Performed By: #### L IPID, CMP #### [facility] [address] [place], [place] [address] Hailee Sally Anion gap [Moles/Vol] 13.0 mmol/L Normal [facility] Comment on above: Performed By: #### L IPID, CMP #### [facility] [address] [place] [id number] Hailee Sally AST [Catalytic activity/Vol] 56 U/L Normal 17-59 [facility] Comment on above: Performed By: #### L IPID, CMP #### [facility] [address] [place] [id number] Hailee Sally Bilirubin [Mass/Vol] 1.0 mg/dL Normal 0.2-1.3 [facility] Comment on above: Performed By: #### L IPID, CMP #### [facility] [address] [place] [address] Hailee Sally Calcium [Mass/Vol] 9.0 mg/dL Normal 8.4-10.2 [facility] Comment on above: Performed By: #### L IPID, CMP #### [facility] [address] [place] [address] Hailee Sally Chloride [Moles/Vol] 106 mmol/L Normal 98-107 [facility] Comment on above: Performed By: #### L IPID, CMP #### [facility] [address] [place] [id number] Hailee Sally CO2 [Moles/Vol] 29.4 mmol/L Normal 22.0-30.0 [facility] Comment on above: Performed By: #### L IPID, CMP #### [facility] [address] [place] [id number] Hailee Sally Creatinine [Mass/Vol] 1.00 mg/dL Normal 0.66-1.25 [facility] Comment on above: Performed By: #### L IPID, CMP #### [facility] [address] [place] [id number] Hailee Sally EGFR-AF GHANAIAN >60 Normal >=60 [facility] Comment on above: Performed By: #### L IPID, CMP #### [facility] [address] [place] [id number] Hailee Sally EGFR-NON AF GHANAIAN >60 Normal >=60 [facility] Comment on above: Performed By: #### L IPID, CMP #### [facility] [address] [place] [id number] Hailee Sally Globulin (S) [Mass/Vol] 3.8 g/dL Normal [facility] Comment on above: Performed By: #### L IPID, CMP #### [facility] [address] [place] [address] Hailee Sally Glucose [Mass/Vol] 117 mg/dL Critically high 74-106 T [facility] Comment on above: Performed By: #### L IPID, CMP #### [facility] [address] [place] [address] Hailee Sally Potassium [Moles/Vol] 5.4 mmol/L Critically high 3.4-5.0 [facility] Comment on above: Performed By: #### L IPID, CMP #### [facility] [address] [place] [address] Hailee Sally Protein [Mass/Vol] 7.6 g/dL Normal 6.1-8.2 [facility] Comment on above: Performed By: #### L IPID, CMP #### [facility] [address] [place] [address] Hailee Sally Sodium [Moles/Vol] 143 mmol/L Normal 137-145 [facility] Comment on above: Performed By: #### L IPID, CMP #### [facility] [address] [place] [address] Hailee Sally Urea nitrogen [Mass/Vol] 16.0 mg/dL Normal 9.0-20.0 [facility] Comment on above: Performed By: #### L IPID, CMP #### [facility] [address] [place], [place] [phone] Hailee Sally Urea nitrogen/Creatinin e [Mass ratio] 16.0 mg/mg Normal [facility] Comment on above: Performed By: #### L IPID, CMP #### [facility] [address] [place] [address] Hailee Zavala XR CSPINE 2_3 VIEWSon 2020 [...] by: KAREEM COOPER Date: 2020-07-28 11:20 Normal [facility] Vital Signs Date Time Vital Sign Value Performing Clinician Facility 03-18-2024 11:31-0500 Body height 172.72 cm [facility] 03-18-2024 11:31-0500 Body mass index (BMI) [Ratio] 30.7 kg/m2 [facility] 03-18-2024 11:31-0500 Body weight 91.73 kg [facility] 03-18-2024 11:31-0500 Diastolic blood pressure 83 mm[Hg] [facility] 03-18-2024 11:31-0500 Heart rate 82 /min [facility] 03-18-2024 11:31-0500 Respiratory rate 12 /min [facility] 03-18-2024 11:31-0500 Systolic blood pressure 130 mm[Hg] [facility] 11-05-2023 15:50-0400 Body height 172.72 cm [facility] 11-05-2023 15:50-0400 Body mass index (BMI) [Ratio] 28.5 kg/m2 [facility] 11-05-2023 15:50-0400 Body weight 85.27 kg [facility] 11-05-2023 15:50-0400 Diastolic blood pressure 85 mm[Hg] [facility] 11-05-2023 15:50-0400 Heart rate 86 /min [facility] 11-05-2023 15:50-0400 Respiratory rate 12 /min [facility] 11-05-2023 15:50-0400 Systolic blood pressure 138 mm[Hg] [facility] 10-11-2023 09:18-0400 Body height 172.72 cm [facility] 10-11-2023 09:18-0400 Body mass index (BMI) [Ratio] 27.9 kg/m2 [facility] 10-11-2023 09:18-0400 Body weight 83.46 kg [facility] 10-11-2023 09:18-0400 Diastolic blood pressure 83 mm[Hg] [facility] 10-11-2023 09:18-0400 Heart rate 76 /min [facility] 10-11-2023 09:18-0400 Systolic blood pressure 129 mm[Hg] [facility] 05-21-2023 11:49-0400 Body height 172.72 cm [facility] 05-21-2023 11:49-0400 Body mass index (BMI) [Ratio] 30.1 kg/m2 [facility] 05-21-2023 11:49-0400 Body weight 89.92 kg [facility] 05-21-2023 11:49-0400 Diastolic blood pressure 89 mm[Hg] [facility] 05-21-2023 11:49-0400 Heart rate 98 /min [facility] 05-21-2023 11:49-0400 Respiratory rate 12 /min [facility] 05-21-2023 11:49-0400 Systolic blood pressure 145 mm[Hg] [facility] 09-20-2022 14:56-0400 Blood Pressure Location Warren MEDINA [facility] [place] 09-20-2022 14:56-0400 Diastolic blood pressure 92 mm[Hg] Warren MEDINA [facility] [place] 09-20-2022 14:56-0400 Heart rate 72 /min Warren MEDINA [facility] [place] 09-20-2022 14:56-0400 Respiratory rate 16 /min Warren MEDINA [facility] [place] 09-20-2022 14:56-0400 Systolic blood pressure 132 mm[Hg] Warren LONGL [facility] [place] 08-28-2022 08:45-0400 Body height 172.72 cm Nayan Ball Other [employer] Other 08-28-2022 08:45-0400 Body mass index (BMI) [Ratio] 28.61 kg/m2 Nayan Ball Other [employer] Other 08-28-2022 08:45-0400 Body weight 85.37 kg Nayan Ball Other [employer] [facility] Other 08-28-2022 08:45-0400 Diastolic blood pressure 86 mm[Hg] Nayan Ball Other [employer] Other 08-28-2022 08:45-0400 Respiratory rate 12 /min Nayan Ball Other [employer] Other 08-28-2022 08:45-0400 Systolic blood pressure 126 mm[Hg] Nayan Ball Other [employer] Other 08-21-2022 09:30-0400 Body height 172.72 cm Nayan Ball Other [employer] Other 08-21-2022 09:30-0400 Body mass index (BMI) [Ratio] 28.61 kg/m2 Nayan Ball Other [employer] Other 08-21-2022 09:30-0400 Body weight 85.37 kg Nayan Ball Other [employer] Other 08-21-2022 09:30-0400 Diastolic blood pressure 88 mm[Hg] Nayan Ball Other [employer] Other 08-21-2022 09:30-0400 Respiratory rate 12 /min Nayan Ball Other [employer] Other 08-21-2022 09:30-0400 Systolic blood pressure 151 mm[Hg] Nayan Ball Other [employer] Other 05-31-2022 10:15-0400 Body height 172.72 cm Nayan Ball Other [employer] Other 05-31-2022 10:15-0400 Body mass index (BMI) [Ratio] 29.89 kg/m2 Nayan Ball Other [employer] Other 05-31-2022 10:15-0400 Body weight 89.18 kg Nayan Ball Other [employer] Other 05-31-2022 10:15-0400 Diastolic blood pressure 81 mm[Hg] Nayan Ball Other [employer] Other 05-31-2022 10:15-0400 SaO2% (BldA) [Mass fraction] 96 % Nayan Ball Other [employer] Other 05-31-2022 10:15-0400 Systolic blood pressure 123 mm[Hg] Nayan Ball Other [employer] [facility] Other 03-20-2022 12:30-0500 Body height 172.72 cm Nayan Ball Other [employer] Other 03-20-2022 12:30-0500 Body mass index (BMI) [Ratio] 29.16 kg/m2 Nayan Ball Other [employer] Other 03-20-2022 12:30-0500 Body weight 87 kg Nayan Ball Other [employer] Other 03-20-2022 12:30-0500 Diastolic blood pressure 76 mm[Hg] Nayan Lange Other [employer] Other 03-20-2022 12:30-0500 Respiratory rate 12 /min Nayan Lange Other [employer] Other 03-20-2022 12:30-0500 Systolic blood pressure 118 mm[Hg] Nayan Lange Other [employer] Other Encounters Encounter Date Encounter Type Care Provider Facility Start: 04-01-2024 End: 04-01-2024 Zenon Farrar MD Work Phone: [facility] Start: 04-01-2024 End: 04-01-2024 Zenon Farrar MD Work Phone: [facility] Start: 04-01-2024 End: 04-01-2024 Office outpatient new 30 minutes Kylie Farrar MD Work Phone: [facility] Comment on above: Actinic keratosis (P rimary Dx); Neoplasm of unspecified behavior of bone, soft tissue, and skin; Neoplasm of uncertain behavior of skin Start: 04-01-2024 End: 04-01-2024 ambulatory KYLIE FARRAR Not Available Start: 03-18-2024 End: 03-18-2024 ambulatory [facility] Work Phone: Start: 03-18-2024 End: 03-18-2024 Patient encounter procedure [facility] Work Phone: Start: 11-05-2023 End: 11-05-2023 ambulatory [facility] Work Phone: Start: 11-05-2023 End: 11-05-2023 Patient encounter procedure [facility] Work Phone: Start: 10-11-2023 End: 10-11-2023 ambulatory [facility] Work Phone: Start: 10-11-2023 End: 10-11-2023 Patient encounter procedure [facility] Gastro[facility]ology Work Phone: Start: 05-21-2023 End: 05-21-2023 ambulatory [facility] Work Phone: Start: 05-21-2023 End: 05-21-2023 Encounter for general adult medical examination without abnormal findings [facility] Start: 05-21-2023 End: 05-21-2023 Patient encounter procedure [facility] Work Phone: Start: 04-19-2023 Non-patient / Non-visit [facility] Work Phone: Start: 03-26-2023 End: 03-26-2023 ambulatory Nayan Lange Other [employer] Other Start: 03-26-2023 Nursing evaluation o f patient and report Nayan Lange [facility] Start: 03-26-2023 Telephone encounter Nayan COLLINS [facility] Start: 03-26-2023 Patient encounter procedure [facility]- Start: 10-25-2022 End: 10-26-2022 ambulatory Warren R NILL Facility:[id number] Start: 09-20-2022 End: 09-21-2022 ambulatory Warren R NILL Facility: [place] Start: 09-20-2022 End: 09-20-2022 Patient encounter procedure Warren R NILL [facility] Nill[facility] [place] Start: 09-14-2022 ambulatory Warren R NILL Facility : [place] Start: 09-12-2022 End: 09-12-2022 ambulatory Nayan Nazario Other [employer] [facility] Other Start: 09-12-2022 Telephone encounter Nayan COLLINS [facility] Start: 09-01-2022 End: 09-01-2022 ambulatory Nayan Lange Other [employer] Other Start: 09-01-2022 Telephone encounter Nayan Lange [facility] Start: 08-28-2022 End: 08-28-2022 ambulatory Nayan Lange Other [employer] Other Start: 08-28-2022 Office outpatient visit 15 minutes Nayan Lange [facility] Start: 08-21-2022 End: 08-21-2022 ambulatory Nayan Nazario Other [employer] [facility] Other Start: 08-21-2022 Office outpatient visit 15 minutes Nayan Lange [facility] Start: 05-31-2022 End: 05-31-2022 ambulatory Nayan Lange Other [employer] Other Start: 05-31-2022 Office outpatient visit 15 minutes Nayan Nazario [facility] Start: 03-20-2022 End: 03-20-2022 ambulatory Nayan Lange Other [employer] Other Start: 03-20-2022 Office outpatient visit 15 minutes Nayan Lange [facility] Start: 10-08-2021 Adult health examination Nayan Lange Other [employer] Other Start: 09-23-2020 Encounter for genera l adult medical examination without abnormal findings DR NAYAN [facility] Start: 09-20-2020 End: 09-21-[address] NAYAN [...] Comment on above: Performed By: #### P [facility] #### [facility] [address] [place], [place] [address] Hailee Zavala Start: 10-06-2016 End: 07-15-2019 Screening [...] DERM [address] [place] [address] Kylie Farrar MD [address] [place] [address] [facility] Start: 04-01-2024 End: 04-01-2024 Patient encounter procedure 04/01/2024 9:35 AM EST Office Visit [facility] [address] [place] [address] Kylie Farrar MD [address] [place] [address] Arrived [facility] Comment on above: Arrived Comprehensive metabo lic 2000 panel - Serum or Plasma [facility] Dermatopathology exam Dermatopat hology exam Pathology and Cytology Timed Neoplasm of unspecified behavior of bone, soft tissue, and skin Release Upon Ordering for 1 Occurrences starting 04/01/2024 [facility] Work Phone: Comment on above: Release Upon Ordering for 1 Occurrences starting 04/01/[address] [facility] Payers Date Payer Category Payer Private Health Insurance [employer] [id number] 1960 Unknown [id number] 1960 Unknown [id number] 593 1959 Unknown [id number] 727 1960 Unknown [id number] 727 1959 Unknown [id number] 727 1959 Unknown [id number] [id number] 1960 Unknown [id number] Self-pay Self Pay [id number] Social History Date Type Detail Facility Unknown if ever smoked [employer] Other Start: 04-01-2024 Sex Assigned At F [facility] Start: 09-20-2022 End: 04-01-2024 Tobacco smoking status Never smoked tobacco (finding) [facility] [place] Tobacco smoking status Never [facility] [place] Start: 1960 Sex Assigned At Male F [facility] Start: 03-18-2024 Sex Male (finding) [facility] Tobacco smoking status [facility] Tobacco smoking consumption unknown [facility] Start: 1960 Sex assigned at Not on file [facility] Start: 04-01-2024 Tobacco use and exposure Smokeless tobacco non-user [facility] Start: 04-01-[address] [facility] Functional Status Date Assessment Result Facility 09-20-2022 Functional Status N/A General Olivo [facility] Clinical Notes 10-06-2016 to 04-01-2024 Kylie [...] and recheck nose documented in this encounter [facility] 10-11-2023 Evaluation note Authored October 11, 2023 9: 47am 62-year-old man referred to the GI clinic for evaluation of rectal pain. Patient has been having discomfort in the rectum for the last 2 months. He had a colonoscopy in [place] a year ago which was normal as per patient. Will arrange for [facility] Work Phone: 1(171) 640-351106-15-2024 Evaluation note* Author Imad [facility] Authored October 11, 2023 9: 47am 62-year-old man referred to the GI clinic for evaluation of rectal pain. Patient has been having discomfort in the rectum for the last 2 months. He had a colonoscopy in [place] a year ago which was normal as per patient. Will arrange for [facility] Work Phone: 1(523) 411-928607-03-2023 Evaluation note* Encounter Date Diagnosis Assessment Notes Treatment Notes Treatment Clinical Notes Aug, Jorden-rectal abscess (ICD-10 - K61.1) Much improved clinically. He is to continues w/ soaking in tub and wiping w/ Tucks wipes. He is to avoid straining Resume normal activity as tolerated Notify office w/ any recurrent symptoms Rx w/ additional 5 days of antibiotics [employer] Other 07-03-2023 Evaluation note* Encounter Date Diagnosis [...] Screening for colon cancer (ICD-10 - Z12.11) [employer] Other 06-26-2023 Evaluation note* Encounter Date Diagnosis Assessment Notes Treatment Notes Treatment Clinical Notes Jul, Jorden-rectal abscess (ICD-10 - K61.1) Sitz baths daily, gentle cleansing. Avoid straining Recheck in 1 wk. [employer] Other 04-05-2023 Evaluation note* Encounter Date Diagnosis Assessment Notes Treatment Notes Treatment Clinical Notes May, Rupture of right biceps tendon, initial encounter (ICD-10 - S46.211A) Refer to Orthopedics for guidance on rehabilitation. May, Acute pain of right shoulder (ICD-10 - M25.511) Ice/heat and Advil as needed. [employer] Other 01-23-2023 Evaluation note* Encounter Date Diagnosis [...] continue exercise to achieve/maintain a normal BMI. [employer] Other 08-11-2017 Evaluation note* Encounter Date Diagnosis Assessment Notes Treatment Notes Treatment Clinical Notes Sep, Dysuria (ICD-10 - R30.0) Dysuria [employer] Other Evaluation + Plan note No data available for this section [facility] Evaluation noteNo InformationNort [employer] Other Evaluation note* Diagnosis Onset Date Resolution Status Benign prostatic hyperplasia with nocturia acute Essential (primary) hypertension acute TEODORA (generalized anxiety disorder) acute Hyperlipidemia type II acute Screening PSA (prostate specific antigen) noneactive Wellness examination noneact roberto [facility] Work Phone: Evaluation note* Diagnosis Onset Date Resolution Status Admit Date Low back pain with radiation acute March 18, 2024 11:23am [facility] Work Phone: Evaluation note* Diagnosis Actinic [...] KNEE ARTHROSCOPY Hospitalization History SEE SURGICAL HX [employer] Other History general Narrative - Reported* Type [...] Colonoscopy 09/2022 Hospitalization History SEE SURGICAL HX [employer] Other Hospital Discharge instructions No data available for this section [facility] [place] Progress note No data available for this section [facility] [place] Reason for referral (narrative)* Reason Referral for evaluat ion of suspected jorden rectal abscess/fistula along with a screening colonoscopy Diagnosis 1 Jorden-rectal abscess (K61.1) Diagnosis 2 Screening for colon cancer (Z12.11) Referral Organization [facility] dariela Referring Provider First Name Nayan Referring Provider Last Name Nazario Referring Provider Specialty Internal De dicine Referred Organization [facility] Referred Provider Warren Medina Referred Address [address],[place], [place],[address] Referred Provider Specialty Surgery Referral Priority Routine General Notes Mr. Donaldson present ed w/ rectal pain but denies abdominal pain, melena, hematochezia or tenesmus. His pain was limited to wiping. He was found to have a jorden rectal abscess, which responded to antibiotics. He is being referred for further evaluation of this condition as well as a screening colonoscopy [employer] Other Summary Purpose Family History No Family [...] eps tendon, initial encounter (S46.211A) Referral Organization [facility] Nazario [facility] dariela Referring Provider First Name Nayan Referring Provider Last Name Nazario Referring Provider Specialty Internal Me dicine Referred Organization [facility] Referred Provider Josh Barrow Referred Address ,[place], [place],[address] Referred Provider Specialty Orthopedic S urgery Referral [...] DATE CREATED AUTHOR AUTHOR'S ORGANIZ ATION 10/31/2022 [facility] DATE CREATED AUTHOR AUTHOR'S ORGANIZ ATION 04/03/2024 [facility] EPIC REASON FOR VISIT [...] March 18, 2024 End: March 18, 2024 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 [facility]. provides no warranty or guarantee of the accuracy or completeness of information in this document.
--- NOTE | 2024-05-22 11:59 | P.CN_ITS ---
Consult Note: HPI Data of Consult Patient: new to practice Requesting Physician: Dominic Meeks MD Primary Care Provider: Nayan Lange, DO Consult Narrative Reason for consult: establish Narrative: Brady Donaldson a pleasant 63 year old male presents for evaluation and management of chronic low back pain. pain started 6 months ago without known injury or cause, in the last 6 months he has failed >6 weeks of PT and provider guided HEP, heat, ice, tylenol, and NSAIDs. denies falls or injury. recent lumbar MRI consistent with multilevel DDD and lumbar spondylosis, mild narrowing at L4,5,S1. pain today 3-4 increasing to 10/10 with standing walking and activity. cc:: CC: Dominic Meeks MD Review of Systems ROS Status of ROS 10 or more systems reviewed and unremark able except as noted in history and below Musculoskeletal Reports: back pain and extremity pain PFSH [facility] Medical History (Updated 05/22/24 @ 12:01 by Rosie Mcdonough NP) Tear of right glenoid labrum ?S43.431A - Superior glenoid labrum lesion of right shoulder, initial encounter (ICD-10) Screening for malignant neoplasm of colon ?Z12.11 - Encounter for screening for malignant neoplasm of colon (ICD-10) Pure hypercholesterolemia ?E78.00 - Pure hypercholesterolemia, unspecified (ICD-10) Overweight ?E66.3 - Overweight (ICD-10) Hyperlipidemia ?E78.5 - Hyperlipidemia, unspecified (ICD-10) Generalized anxiety disorder ?F41.1 - Generalized anxiety disorder (ICD-10) Essential hypertension ?I10 - Essential (primary) hypertension (ICD-10) Erectile dysfunction ?N52.9 - Male erectile dysfunction, unspecified (ICD-10) Multilevel cervical spondylosis without myelopathy ?M47.812 - Spondylosis without myelopathy or radiculopathy, cervical region (ICD-10) BPH (benign prostatic hyperplasia) ?N40.0 - Benign prostatic hyperplasia without lower urinary tract symptoms (ICD-10) Anorectal abscess ?K61.2 - Anorectal abscess (ICD-10) Surgical History H/O breast biopsy ?Z98.890 - Other specified postprocedural states (ICD-10) H/O arthroscopy of knee ?Z98.890 - Other specified postprocedural states (ICD-10) History of colonoscopy ?Z98.890 - Other specified postprocedural states (ICD-10) Family History Mother Family history of COPD (chronic obstructive pulmonary disease) Hypertension Father Diabetes mellitus Social History Within the past year, how often did you have a drink containing alcohol: 2-4 times a month Within the past year, how many standard drinks containing alcohol did you have on a typical day: 1 or 2 Total score: 0 Score interpretation: A score less than 4 is consistent with normal alcohol consumption. 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 Highest level of school completed/degree received: high school graduate Meds Home Medications and Allergies Home Medications ?Medication ?Instructions ?Recorded ?Confirmed ?Type alprazolam 0.5 mg tablet 0.5 mg PO DAILY 10/17/22 10/25/22 History lovastatin 40 mg tablet 40 mg PO DAILY 10/17/22 10/25/22 History paroxetine HCl 30 mg tablet 30 mg PO DAILY 10/17/22 10/25/22 History Allergies Allergy/AdvReac Type Severity Reaction Status Date / Time Penicillins Allergy Verified 10/17/22 14:05 Exam Constitutional Documenting provider has reviewed patient's vital signs: yes Common normals: no apparent distress, oriented x3, healthy appearing, alert and well nourished General appearance: cooperative HENNV Common normals: normocephalic, hearing grossly normal bilaterally and moist oral mucous membranes Head and scalp: normocephalic Eye Common normals: PERRL Pupil: PERRL Neck & C-Spine Common normals: full ROM General: normal visual inspection Chest Common normals: inspection of chest normal Respiratory Common normals: normal respiratory effort, no retractions and no use of accessory muscles Back & Pelvis Lumbar spine/lower back: pain with ROM, lumbar spinal tenderness, paraspinal muscle tenderness and straight leg raise positive right Sacroiliac joints: SI joint(s) abnormal Other: decreased right L4,5,S1 sensation strength 4/5 in RLE and 5/5 in LLE right sij positive camila(garret), gaenslens, thigh thrust, compression test Neuro Common normals: oriented x3, CN's II-XII intact bilaterally, moves all extremities, no focal motor deficits, no sensory deficits noted and deep tendon reflexes 2+ bilaterally Sensorium/orientation: alert Motor exam: no movement abnormalities noted Psych Common normals: mental status grossly normal, thought process normal, cooperative, affect normal, speech normal and activity/motor behavior normal Speech: normal speech Thought process: normal thought process Results Additional Findings Additional findings: If on a controlled substance or opioids, I have checked an [place]AR[place] report on this patient and there are no aberrancies noted in the prescribing history.??If on a controlled substance or opioid a drug screen was completed and reviewed within the last year, and if there has not been a drug screen completed we ordered one today to monitor higher risk, state monitored pain medication use. As part of providing excellent, safe, comprehensive care, the following was completed at our patient's visit: 1. A medication reconciliation and review to ensure accurate knowledge of current/active medications, including asking our patients to inform us about any [id number] medications or herbal remedies/nutritional supplements/alternative remedies. 2. A review to specifically ensure our patients have had annual screening for screening for depression, screening for tobacco use, and screening for unhealthy alcohol use. For concerning screenings had a discussion with the patient, provided patient education, and recommended follow-up with primary care provider when appropriate. If patient noted with a risk of falling, they received education on strength, gait, and balance training to prevent future risk of falling. Portions of this note may have been carried over from the previous visit and updated as appropriate. Please note this office utilizes paper charting in addition to the electronic medical record. A list of current medications, vitals, and PMH is available there as the clinical staff outside of myself do not have access to [employer] charting during the clinic day operations. As part of providing quality comprehensive care the current medications, vitals, and PMH were reviewed in the paper chart. Assessment and Plan Assessment and Plan (1) Bulging lumbar disc: (2) Lumbar degenerative disc disease: (3) Lumbar spondylosis: (4) Sacroiliitis: Plan The patient has had over 3 months of moderate to severe low back and right SIJ pain with functional impairment and inadequate response to conservative care including NSAIDS (unless there are contraindication such as concurrent blood thinners), multiple oral or topical pain medications, and home exercise program/physical therapy.? Patient has completed >6 weeks of guided home exercise program and/or formal physical therapy program without relief of their symptoms.? I have reviewed the imaging of the lumbar spine and no red flags were identified.? The imaging reveals radiographic findings consistent with lumbar disc bulge, lumbar stenosis with NC, lumbar spondylosis The Oswestry Disability Index was completed, and the patient scored a 24%.? The patient noted the following:?? moderate to severe pain impacting ADLs, sitting, standing, travel? We discussed the risks and benefits of the procedure with the patient, and we ar e NOT planning on using sedation as outlined in the guidelines from Medicare unless there is a documented reason that sedation would be strongly recommended.???The procedure will be completed with fluoroscopic guidance.? proceed with right L4-5 L5-S1 TFESI under fluoroscopy, consider right SIJ injection if needed. pt has xanax at home which he reports he takes 1 tab HS. advised not to take the AM or daytime of his procedure, we will prescribe 10mg po valium 30-60 mins prior to procedure due to anxiety. f/u 2 weeks after injection
== END 2024-05-22 11:11 | disposition home or self-care (01) ==
LOC: PM 11:11
PROVIDERS: PCP Internal Medicine; Visit Provider Anesthesiology
DX: M51.369 Other intervertebral disc degeneration, lumbar region without mention of lumbar back pain or lower extremity pain (principal); M47.816 Spondylosis without myelopathy or radiculopathy, lumbar region; M46.1 Sacroiliitis, not elsewhere classified
CPT/HCPCS: G0463

== ENCOUNTER 2024-06-02 09:08 | Day surgery (SDC) | payer OTHER, SELFPAY ==
[2024-06-02 09:44] VITALS: BP 127/85; PULSE 87; TEMP 36.5; O2SAT 96
[2024-06-02 10:30] VITALS: BP 132/72; PULSE 84; O2SAT 96
[2024-06-02 10:33] VITALS: BP 125/80; PULSE 77; O2SAT 95
[2024-06-02] MEDS: 0.9 % SODIUM CHLORIDE 10 ML SYRINGE - SALINE FLUSH INJ (10:34)
[2024-06-02] MEDS: BUPIVACAINE HCL 0.25% PF 25 MG/10 ML VIAL INJ (10:34)
[2024-06-02] MEDS: IOHEXOL 240 MG/ML - 10 ML VIAL INJ (10:34)
[2024-06-02] MEDS: LIDOCAINE HCL 2% 400 MG/20 ML MDV 3 ML INJ (10:35)
[2024-06-02] MEDS: METHYLPREDNISOLONE ACETATE 80 MG/ML VIAL INJ (10:35)
--- NOTE | 2024-06-02 10:37 | P.ON_ITS ---
Date of procedure: 06/02/24 Pre-op diagnosis: Pain due to lumbar stenosis with neurogenic claudication Post-op diagnosis: same as pre-op Procedure: Procedure: Right L4-5, L5-S1 transforaminal epidural steroid injection Medications: Bupivacaine 0.25% 2cc, lidocaine 2% 1cc, depomedrol 80mg The patient was seen and examined in the preoperative holding area.? Informed consent was obtained and placed on the chart.? Patient was brought to the medical procedure unit and placed in the prone position where a timeout was completed verifying the correct patient, procedure site, position, and planned special equipment using sterile aseptic technique.? Under direct fluoroscopic visualization a 25-gauge Quincke tipped spinal needle was advanced to the designated neural foramen where contrast dye was injected to show adequate spread.? The needle was inserted at level right L4-5. There was no evidence of vascular or adverse uptake.? Epidural spread was appreciated.? The above- mentioned injectate was then placed in a 1.5 mL aliquot preceded by negative aspiration.? The needle was removed. The needle was inserted and the procedure repeated at level right L5-S1.? The surgery site was covered.? Patient was taken to the postprocedural recovery area and monitored for an appropriate length of time before found suitable for discharge in the accompaniment of a responsible adult. Anesthesia: Local Surgeon: Dominic Meeks Pathology: none sent Condition: stable Disposition: no change
== END 2024-06-02 10:39 | disposition home or self-care (01) ==
LOC: SURGOUT 09:08
PROVIDERS: PCP Internal Medicine; Visit Provider Anesthesiology
DX: M48.062 Spinal stenosis, lumbar region with neurogenic claudication (principal); M54.50 Low back pain, unspecified
CPT/HCPCS: 64483; 64484; J0665; J1010; Q9966

== ENCOUNTER 2024-06-11 08:52 | Outpatient (OUT) | payer OTHER, SELFPAY ==
--- OUTSIDE RECORDS SUMMARY | 2024-06-11 09:05 | XMS_ITS | CCD ---
Author Organization [facility] Care Team Providers Care Lumber Carrier Name Role Phone NAZARIO, DR FONTANEZ Primary Care Unavailable NAZARIO, DR FONTANEZ Admitting Unavailable NAZARIO, DR FONTANEZ Attending Unavailable NAZARIO, DR FONTANEZ Consulting Unavailable NAZARIO, DR FONTANEZ Admitting Unavailable NAZARIO, DR FONTANEZ Attending Unavailable NAZARIO, DR FONTANEZ Consulting Unavailable NAZARIO, DR FONTANEZ Primary Care Unavailable ALLISON, DR KAREEM Marc Consulting Unavailable Nazario, Nayan Unavailable NAYAN LANGE Primary Care Physician Warren MEDINA Attending Unavailable NAZARIO, NAYAN Referring Unavailable NILKeisha, Warren Maxwell Attending Unavailable NAZARIO, NAYAN Referring Unavailable NILKeisha, Warren Maxwell Attending Unavailable Nayan Lange MD Primary Care Provider KYLIE FARRAR Attending Unavailable Jeanna HERNANDEZ, Dominic Odonnell Attending Unavailable Allergies Allergy Classification Reported Allergen(s) Allergy Type Date of Onset Reaction(s) Facility (9 sources) HMG-CoA reductase inhibitor Drug allergy Unknown [facility] Other (1 source) No Known Medication Allergies; Translations: [No Known Medication Allergies] Propensity to adverse reactions (disorder) [facility] Repository (2 sources) patient allergy list reviewed by nurse or physicia Propensity to adverse reactions 9 Comment:Done [facility] Other (3 sources) Penicillins Allergy to substance 4 nausea/vomitin g [facility] (3 sources) Vvovjpw-CCB-CmR Reductase Inhibitor Allergy to substance 4 Unknown Reaction [facility] (2 sources) Penicillin G Drug Allergy 5 [...] tablet Discontinued 1 TAB PO Twice daily 42 May 21, 2023 11:00pm October 11, 2023 [...] yes Amount of lidocaine used: 0.3 cc [employer] [employer] [facility] Outside Colonoscopyon 2022 Outside Colonoscopy [id number]: 127 [facility] Reminderson 10-26-2022 Reminders - From: Heather Pepper LPN To: [facility] - Clinical; Sent: 10/26/2022 09:57:03 EDT Show up: 09/24/2032 07:00:00 EDT Subject: colonoscopy recall Due Date/Time: 10/25/2032 07:00:00 EDT Reminder/Recall Patient due for screening colonoscopy 10/25/2032. Normal [facility] Consent for Procedure/Surger yon 09-21-2022 Consent for Procedure/Surgery [id number]: 127 [facility] Facesheeton 09-21-2022 Facesheet [id number]: 127 [facility] Ambulatory Visit Summaryon 0 09-20-2022 Ambulatory Visit [...] disorder Hyperlipidemia Overweight Pure hypercholesterolemia Normal [facility] General Surgery Office/Clini c Noteon [...] mellitus typ (more content not included)... Normal [facility] Comment on above: Result Comment: Elec tronically Signed By: SHANNAN HERNANDEZ, Warren Gonzales\Date and Time Signed: 09/20/22 16:54 EDT Physician Referralon 023 Physician Referral [id number]: 127 Normal [facility] CBC AUTO DIFFon 09-20-2020 BASO # 0.1 103/ul Normal 0.0-0.1 [facility] Comment on above: Performed By: #### C BC #### [facility] [address] [place], [place] [address] Hailee Sally Basophils/100 WBC (Bld) 0.9 % Normal 0.2-2.0 [facility] Comment on above: Performed By: #### C BC #### [facility] [address] [place], [place] [address] Hailee Sally EO # 0.3 103/ul Normal 0.0-0.7 [facility] Comment on above: Performed By: #### C BC #### [facility] [address] [place], [place] [address] Hailee Sally Eosinophils/100 WBC (Bld) 4.8 % Normal 0.9-7.0 [facility] Comment on above: Performed By: #### C BC #### [facility] [address] [place], [place] [id number] Hailee Sally Erythrocyte distribution width (RBC) [Ratio] 12.4 % Normal 11.0-15.0 [facility] Comment on above: Performed By: #### C BC #### [facility] [address] [place] [address] Hailee Sally Hematocrit (Bld) [Volume fraction] 47.8 % Normal 42.0-54.0 [facility] Comment on above: Performed By: #### C BC #### [facility] [address] [place] [address] Hailee Salyl Hemoglobin (Bld) [Mass/Vol] 16.1 g/dL Normal 14.0-18.0 [facility] Comment on above: Performed By: #### C BC #### [facility] [address] [place] [address] Hailee Sally IG # 0.02 10e3/ul Normal 0.00-0.03 [facility] Comment on above: Performed By: #### C BC #### [facility] [address] [place] [address] Hailee Sally IG % 0.4 % Normal 0.0-0.5 [facility] Comment on above: Performed By: #### C BC #### [facility] [address] [place] [address] Hailee Sally LYMPH # 1.8 103/ul Normal 1.2-3.8 [facility] Comment on above: Performed By: #### C BC #### [facility] [address] [place] [address] Hailee Sally Lymphocytes/100 WBC (Bld) 32.0 % Normal 20.5-60.0 [facility] Comment on above: Performed By: #### C BC #### [facility] [address] [place] [address] Hailee Sally MANUAL DIFF REQ NO Normal The [facility] Comment on above: Performed By: #### C BC #### [facility] [address] [place] [address] Hailee Sally MCH (RBC) [Entitic mass] 31.7 pg Normal 25.9-34.0 [facility] Comment on above: Performed By: #### C BC #### [facility] [address] [place], [place] [id number] Hailee Zavala MCHC (RBC) [Mass/Vol] 33.7 g/dL Normal 29.9-35.2 [facility] Comment on above: Performed By: #### C BC #### [facility] [address] [place], [place] [id number] Hailee Zavala MCV (RBC) [Entitic vol] 94.1 fL Critically high 80.0-94.0 [facility] Comment on above: Performed By: #### C BC #### [facility] [address] [place] [address] Hailee Zavala MONO # 0.7 103/ul Normal 0.3-0.8 [facility] Comment on above: Performed By: #### C BC #### [facility] [address] [place], [place] [phone] Hailee Zavala Monocytes/100 WBC (Bld) 12.6 % Critically high 1.7-12.0 [facility] Comment on above: Performed By: #### C BC #### [facility] [address] [place] [address] Hailee Zavala NEUT # 2.7 103/ul Normal 1.4-6.5 [facility] Comment on above: Performed By: #### C BC #### [facility] [address] [place], [place] [address] Hailee Zavala Neutrophils/100 WBC (Bld) 49.3 % Normal 43.0-75.0 [facility] Comment on above: Performed By: #### C BC #### [facility] [address] [place], [place] [phone] Haileedaja Zavala Platelet mean volume (Bld) [Entitic vol] 9.4 fL Critically low 9.5-13.5 [facility] Comment on above: Performed By: #### C BC #### [facility] [address] [place], [place] [address] Hailee Sally PLT 257 103/ul Normal 150-450 [facility] Comment on above: Performed By: #### C BC #### [facility] [address] [place], [place] [address] Ahilee Sally RBC 5.08 106/ul Normal 4.70-6.10 [facility] Comment on above: Performed By: #### C BC #### [facility] [address] [place], [place] [address] Hailee Sally WBC 5.5 103/ul Normal 4.0-11.0 [facility] Comment on above: Performed By: #### C BC #### [facility] [address] [place], [place] [address] Hailee Sally LIPID PROFILEon 09-20-2020 CHOL-HDL RATIO NORM SEE BELOW Normal [facility] Comment on above: Result Comment: 3.3 - 4.4 LOW RISK 4.4 - 7.1 AVERAGE RISK 7.1 - 11.0 MODERATE RISK >11.0 HIGH RISK Performed By: #### L IPID, CMP #### [facility] [address] [place] [address] Hailee Sally Cholesterol [Mass/Vol] 290 mg/dL Critically high <=200 [facility] Comment on above: Performed By: #### L IPID, CMP #### [facility] [address] [place] [address] Hailee Sally Cholesterol in HDL [Mass/Vol] 72 mg/dL Normal [facility] Comment on above: Performed By: #### L IPID, CMP #### [facility] [address] [place], [place] [address] Hailee Sally Cholesterol in LDL [Mass/Vol] 195.8 mg/dL Normal [facility] Comment on above: Performed By: #### L IPID, CMP #### [facility] [address] [place], [place] [address] Hailee Sally Cholesterol.total/ Cholesterol in HDL [Mass ratio] 4.0 {ratio} Normal [facility] Comment on above: Performed By: #### L IPID, CMP #### [facility] [address] [place], [place] [address] Hailee Sally HDL NORMAL > or = 60 mg/dl - LO W CARDIOVASCULAR RISK <40 mg/dl - HIGH CARDIOVASCULAR RISK Normal [facility] Comment on above: Performed By: #### L IPID, CMP #### [facility] [address] [place] [phone] Hailee Sally LDL CALC NORMAL SEE BELOW Normal [facility] Comment on above: Result Comment: <100 mg/dl OPTIMAL 100 - 129 mg/dl NEAR OR ABOVE OPTIMAL 130 - 159 mg/dl BORDERLINE HIGH 160 - 189 mg/dl HIGH >190 mg/dl VERY HIGH Performed By: #### L IPID, CMP #### [facility] [address] [place] [id number] Hailee Sally Triglyceride [Mass/Vol] 111 mg/dL Normal <=150 [facility] Comment on above: Performed By: #### L IPID, CMP #### [facility] [address] [place] [phone] Hailee Sally VLDL CALC 22.2 mg/dL Normal [facility] Comment on above: Performed By: #### L IPID, CMP #### [facility] [address] [place] [id number] Haileedaja Moctezumaen PROF 14(COMP METB)on 021 Albumin [Mass/Vol] 3.8 g/dL Normal 3.5-5.0 [facility] Comment on above: Performed By: #### L IPID, CMP #### [facility] [address] [place] [phone] Hailee Sally Albumin/Globulin [Mass ratio] 1.0 {ratio} Normal [facility] Comment on above: Performed By: #### L IPID, CMP #### [facility] [address] [place] [phone] Hailee Sally ALP [Catalytic activity/Vol] 64 U/L Normal 38-126 [facility] Comment on above: Performed By: #### L IPID, CMP #### [facility] [address] [place] [phone] Hailee Sally ALT [Catalytic activity/Vol] 36 U/L Normal 21-72 [facility] Comment on above: Performed By: #### L IPID, CMP #### [facility] [address] [place], [place] [address] Hailee Sally Anion gap [Moles/Vol] 13.0 mmol/L Normal [facility] Comment on above: Performed By: #### L IPID, CMP #### [facility] [address] [place] [id number] Hailee Sally AST [Catalytic activity/Vol] 56 U/L Normal 17-59 [facility] Comment on above: Performed By: #### L IPID, CMP #### [facility] [address] [place] [phone] Hailee Sally Bilirubin [Mass/Vol] 1.0 mg/dL Normal 0.2-1.3 [facility] Comment on above: Performed By: #### L IPID, CMP #### [facility] [address] [place] [phone] Hailee Sally Calcium [Mass/Vol] 9.0 mg/dL Normal 8.4-10.2 [facility] Comment on above: Performed By: #### L IPID, CMP #### [facility] [address] [place] [phone] Hailee Sally Chloride [Moles/Vol] 106 mmol/L Normal 98-107 [facility] Comment on above: Performed By: #### L IPID, CMP #### [facility] [address] [place] [phone] Hailee Sally CO2 [Moles/Vol] 29.4 mmol/L Normal 22.0-30.0 [facility] [place] [facility] Comment on above: Performed By: #### L IPID, CMP #### [facility] [address] [place] [phone] Hailee Sally Creatinine [Mass/Vol] 1.00 mg/dL Normal 0.66-1.25 [facility] Comment on above: Performed By: #### L IPID, CMP #### [facility] [address] [place] [phone] Hailee Sally EGFR-AF BURKINAN >60 Normal >=60 [facility] [place] [facility] Comment on above: Performed By: #### L IPID, CMP #### [facility] [address] [place], [place] [address] Hailee Sally EGFR-NON AF BURKINAN >60 Normal >=60 [facility] Comment on above: Performed By: #### L IPID, CMP #### [facility] [address] [place], [place] [address] Hailee Sally Globulin (S) [Mass/Vol] 3.8 g/dL Normal [facility] Comment on above: Performed By: #### L IPID, CMP #### [facility] [address] [place] [address] Hailee Sally Glucose [Mass/Vol] 117 mg/dL Critically high 74-106 [facility] Comment on above: Performed By: #### L IPID, CMP #### [facility] [address] [place] [phone] Hailee Sally Potassium [Moles/Vol] 5.4 mmol/L Critically high 3.4-5.0 [facility] Comment on above: Performed By: #### L IPID, CMP #### [facility] [address] [place], [place] [address] Hailee Sally Protein [Mass/Vol] 7.6 g/dL Normal 6.1-8.2 [facility] Comment on above: Performed By: #### L IPID, CMP #### [facility] [address] [place] [phone] Hailee Sally Sodium [Moles/Vol] 143 mmol/L Normal 137-145 [facility] Comment on above: Performed By: #### L IPID, CMP #### [facility] [address] [place], [place] [address] Hailee Sally Urea nitrogen [Mass/Vol] 16.0 mg/dL Normal 9.0-20.0 [facility] Comment on above: Performed By: #### L IPID, CMP #### [facility] [address] [place], [place] [address] Hailee Sally Urea nitrogen/Creatinin e [Mass ratio] 16.0 mg/mg Normal [facility] Comment on above: Performed By: #### L IPID, [facility] #### [facility] [address] [place] [address] Hailee Zavala XR CSPINE 2_3 VIEWSon 2020 [...] by: KAREEM COOPER Date: 2020-07-28 11:20 Normal [facility] Vital Signs Date Time Vital Sign Value Performing Clinician Facility 03-18-2024 11:31-0500 Body height 172.72 cm [facility] 03-18-2024 11:31-0500 Body mass index (BMI) [Ratio] 30.7 kg/m2 [facility] 03-18-2024 11:31-0500 Body weight 91.73 kg [facility] 03-18-2024 11:31-0500 Diastolic blood pressure 83 mm[Hg] [facility] 03-18-2024 11:31-0500 Heart rate 82 /min [facility] 03-18-2024 11:31-0500 Respiratory rate 12 /min [facility] 03-18-2024 11:31-0500 Systolic blood pressure 130 mm[Hg] [facility] 11-05-2023 15:50-0400 Body height 172.72 cm [facility] 11-05-2023 15:50-0400 Body mass index (BMI) [Ratio] 28.5 kg/m2 [facility] 11-05-2023 15:50-0400 Body weight 85.27 kg [facility] 11-05-2023 15:50-0400 Diastolic blood pressure 85 mm[Hg] [facility] 11-05-2023 15:50-0400 Heart rate 86 /min [facility] 11-05-2023 15:50-0400 Respiratory rate 12 /min [facility] 11-05-2023 15:50-0400 Systolic blood pressure 138 mm[Hg] [facility] 10-11-2023 09:18-0400 Body height 172.72 cm [facility] 10-11-2023 09:18-0400 Body mass index (BMI) [Ratio] 27.9 kg/m2 [facility] 10-11-2023 09:18-0400 Body weight 83.46 kg [facility] 10-11-2023 09:18-0400 Diastolic blood pressure 83 mm[Hg] [facility] 10-11-2023 09:18-0400 Heart rate 76 /min [facility] 10-11-2023 09:18-0400 Systolic blood pressure 129 mm[Hg] [facility] 05-21-2023 11:49-0400 Body height 172.72 cm [facility] 05-21-2023 11:49-0400 Body mass index (BMI) [Ratio] 30.1 kg/m2 [facility] 05-21-2023 11:49-0400 Body weight 89.92 kg [facility] 05-21-2023 11:49-0400 Diastolic blood pressure 89 mm[Hg] [facility] 05-21-2023 11:49-0400 Heart rate 98 /min [facility] 05-21-2023 11:49-0400 Respiratory rate 12 /min [facility] 05-21-2023 11:49-0400 Systolic blood pressure 145 mm[Hg] [facility] 09-20-2022 14:56-0400 Blood Pressure Location Warren MEDINA [facility] 09-20-2022 14:56-0400 Diastolic blood pressure 92 mm[Hg] Warren MEDINA [facility] 09-20-2022 14:56-0400 Heart rate 72 /min Warren MEDINA [facility] 07-26-2023 14:56-0400 Respiratory rate 16 /min Warren MEDINA [facility] 09-20-2022 14:56-0400 Systolic blood pressure 132 mm[Hg] Warren MEDINA [facility] 08-28-2022 08:45-0400 Body height 172.72 cm Nayan Ball Other [facility] Other 08-28-2022 08:45-0400 Body mass index (BMI) [Ratio] 28.61 kg/m2 Nayan Ball Other [facility] Other 08-28-2022 08:45-0400 Body weight 85.37 kg Nayan Ball Other [facility] Other 08-28-2022 08:45-0400 Diastolic blood pressure 86 mm[Hg] Nayan Ball Other [facility] Other 08-28-2022 08:45-0400 Respiratory rate 12 /min Nayan Ball Other [facility] Other 08-28-2022 08:45-0400 Systolic blood pressure 126 mm[Hg] Nayan Ball Other [facility] Other 08-21-2022 09:30-0400 Body height 172.72 cm Nayan Ball Other [facility] Other 08-21-2022 09:30-0400 Body mass index (BMI) [Ratio] 28.61 kg/m2 Nayan Ball Other [facility] Other 08-21-2022 09:30-0400 Body weight 85.37 kg Nayan Ball Other [facility] Other 08-21-2022 09:30-0400 Diastolic blood pressure 88 mm[Hg] Nayan Ball Other [facility] Other 08-21-2022 09:30-0400 Respiratory rate 12 /min Nayan Ball Other [facility] Other 08-21-2022 09:30-0400 Systolic blood pressure 151 mm[Hg] Nayan Ball Other [facility] Other 05-31-2022 10:15-0400 Body height 172.72 cm Nayan Ball Other [facility] Other 05-31-2022 10:15-0400 Body mass index (BMI) [Ratio] 29.89 kg/m2 Nayan Ball Other [facility] Other 05-31-2022 10:15-0400 Body weight 89.18 kg Nayan Ball Other [facility] Other 05-31-2022 10:15-0400 Diastolic blood pressure 81 mm[Hg] Nayan Ball Other [facility] Other 05-31-2022 10:15-0400 SaO2% (BldA) [Mass fraction] 96 % Nayan Ball Other [facility] Other 05-31-2022 10:15-0400 Systolic blood pressure 123 mm[Hg] Nayan Ball Other [facility] Other 03-20-2022 12:30-0500 Body height 172.72 cm Nayan Ball Other [facility] Other 03-20-2022 12:30-0500 Body mass index (BMI) [Ratio] 29.16 kg/m2 Nayan Ball Other [facility] Other 03-20-2022 12:30-0500 Body weight 87 kg Nayan Lange Other [facility] Other 03-20-2022 12:30-0500 Diastolic blood pressure 76 mm[Hg] Nayan Lange Other [facility] Other 03-20-2022 12:30-0500 Respiratory rate 12 /min Nayan Lange Other [facility] Other 03-20-2022 12:30-0500 Systolic blood pressure 118 mm[Hg] Nayan IP Ghoster Other [facility] Other Encounters Encounter Date Encounter Type Care Provider Facility Start: 06-02-2024 End: 06-02-2024 ambulatory Dominic Meeks MD Facility:[facility] Start: 04-01-2024 End: 04-01-2024 Zenon Farrar MD Work Phone: [facility] Start: 04-01-2024 End: 04-01-2024 Zenon Farrar MD Work Phone: [facility] Start: 04-01-2024 End: 04-01-2024 Office outpatient new 30 minutes Kylie Farrar MD Work Phone: [facility] Comment on above: Actinic keratosis (P rimary Dx); Neoplasm of unspecified behavior of bone, soft tissue, and skin; Neoplasm of uncertain behavior of skin Start: 04-01-2024 End: 04-01-2024 ambulatory KYLIE FARRAR Not Available Start: 03-18-2024 End: 03-18-2024 ambulatory [facility] Work Phone: Start: 03-18-2024 End: 03-18-2024 Patient encounter procedure [facility] Work Phone: Start: 11-05-2023 End: 11-05-2023 ambulatory [facility] Work Phone: Start: 11-05-2023 End: 11-05-2023 Patient encounter procedure [facility] Work Phone: Start: 10-11-2023 End: 10-11-2023 ambulatory [facility] Work Phone: Start: 10-11-2023 End: 10-11-2023 Patient encounter procedure [facility] Work Phone: Start: 05-21-2023 End: 05-21-2023 ambulatory [facility] Work Phone: Start: 05-21-2023 End: 05-21-2023 Encounter for general adult medical examination without abnormal findings [facility] Start: 05-21-2023 End: 05-21-2023 Patient encounter procedure [facility] Work Phone: Start: 04-19-2023 Non-patient / Non-visit [facility] [employer] Work Phone: Start: 03-26-2023 End: 03-26-2023 ambulatory Nayan Lange Other [facility] Other Start: 03-26-2023 Nursing evaluation o f patient and report Nayan Lange [facility] Start: 03-26-2023 Telephone encounter Nayan Lange [facility] Start: 03-26-2023 Patient encounter procedure [facility]- Start: 10-25-2022 End: 10-26-2022 ambulatory Warren R NILL Facility:[id number] Start: 09-20-2022 End: 09-21-2022 ambulatory Warren R NILL Facility:[facility] Start: 09-20-2022 End: 09-20-2022 Patient encounter procedure Warren R NILL General [facility] Start: 09-14-2022 ambulatory Warren R NILL Facility : [facility] Start: 09-12-2022 End: 09-12-2022 ambulatory Nayan Lange Other [facility] Other Start: 09-12-2022 Telephone encounter Nayan Lange [facility] Start: 09-01-2022 End: 09-01-2022 ambulatory Nayan Nazario Other [facility] Other Start: 09-01-2022 Telephone encounter Nayan aLnge FP [facility] Start: 08-28-2022 End: 08-28-2022 ambulatory Nayan Lange Other [facility] Other Start: 08-28-2022 Office outpatient visit 15 minutes Nayan Lange [facility] Start: 08-21-2022 End: 08-21-2022 ambulatory Nayan Lange Other [employer] Other Start: 08-21-2022 Office outpatient visit 15 minutes Nayan Lange [facility] Start: 05-31-2022 End: 05-31-2022 ambulatory Nayan Lange Other [employer] Other Start: 05-31-2022 Office outpatient visit 15 minutes Nayan Lange [facility] Start: 03-20-2022 End: 03-20-2022 ambulatory Nayan Lange Other [facility] Other Start: 03-20-2022 Office outpatient visit 15 minutes Nayan Nazario [facility] Start: 10-08-2021 Adult health examination Nayan Lange Other [employer] Other Start: 09-23-2020 Encounter for genera l adult medical examination without abnormal findings DR NAYAN LANGE [facility] Start: 09-20-2020 End: 09-21-[address] NAYAN LANGE Facility:[facility]1 Start: 09-20-2020 End: 09-21-2020 Encounter for general adult medical examination without abnormal findings DR NAYAN LANGE Facility:[facility] Start: 07-28-2020 End: 07-29-[address] NAYAN LANGE Facility:[facility]1 Procedures Date Procedure Procedure Detail Performing Clinician Start: 04-01-2024 SKIN / NAIL BIOPSY Sampson Farrar MD Work Phone: Start: 09-20-[address] ALONDRA LANGE Comment on above: Performed By: #### P [facility] #### [facility] [address], [place] [address] Hailee Zavala Start: 10-06-2016 End: 07-15-2019 Screening for malignant neoplasm of prostate Nayan Lange Other Start: 01-29-2014 End: 07-15-2019 General examination of patient Nayan Lange Other Start: 06-26-2012 Colonoscopy Warren NI LL Arthroscopy of knee Warren NILL Depression screening Smitha Lange Other Excisional biopsy of breast mass Warren NILL Fasciotomy of foot Warren KAY Screening for malign ant neoplasm of prostate Nayan Lange Other Structure of right g lenoid labrum Warren MERCEDESL Plan of Treatment Date Care Activity Detail Author Start: 06-30-2024 End: 06-30-2024 Patient encounter procedure 06/30/2024 9:45 AM EDT Office Visit [facility] [address] [place] [address] Kylie Farrar MD [address] [place] [address] [facility] Start: 04-01-2024 End: 04-01-2024 Patient encounter procedure 04/01/2024 9:35 AM EST Office Visit [facility] [address] [place] [address] Kylie Farrar MD [address] [place] [address] Arrived [facility] Comment on above: Arrived Comprehensive metabo lic 2000 panel - Serum or Plasma [facility] Dermatopathology exam Dermatopat hology exam Pathology and Cytology Timed Neoplasm of unspecified behavior of bone, soft tissue, and skin Release Upon Ordering for 1 Occurrences starting 04/01/2024 [facility] Work Phone: Comment on above: Release Upon Ordering for 1 Occurrences starting 04/01/2024 [facility] Payers Date Payer Category Payer Unknown 2021 Private Health Insurance [employer] Member Subscriber Plan / Payer (Effective 2021-Present) Name: Mendoza Ina Smith Relation to Subscriber: Self Name: DonaldsonIna Luis Payer ID: Not on file Type: Not on file Address: [place] [id number] 1960 Unknown [id number] 1959 Unknown [id number] 1959 Unknown [id number] 1959 Unknown [id number] 727 1959 Unknown [id number] 727 1959 Unknown [id number] 1959 Unknown [id number] 196 1960 Unknown [id number] Self-pay Self Pay [id number] Social History Date Type Detail Facility Unknown if ever smoked [employer] Other Start: 04-01-2024 Sex Assigned At F [facility] Start: 09-20-2022 End: 04-01-2024 Tobacco smoking status Never smoked tobacco (finding) [facility] Tobacco smoking status Never [facility] Start: 1960 Sex Assigned At Male F [facility] Start: 03-18-2024 Sex Male (finding) [facility] Tobacco smoking status NHIS Tobacco smoking consumption unknown [facility] Start: 1960 Sex assigned at Not on file [facility] Start: 04-01-2024 Tobacco use and exposure Smokeless tobacco non-user [facility] Start: 04-01-2024 History of Social function [facility] Functional Status Date Assessment Result Facility 09-20-2022 Functional Status N/A General Olivo [facility] Clinical Notes 10-06-2016 to 04-01-2024 Kylie Farrar [...] and recheck nose documented in this encounter [facility] 10-11-2023 Evaluation note Authored October 11, 2023 9: 47am 62-year-old man referred to the GI clinic for evaluation of rectal pain. Patient has been having discomfort in the rectum for the last 2 months. He had a colonoscopy in [place] a year ago which was normal as per patient. Will arrange for Flex [facility] Work Phone: [phone]) 440-601206-15-2024 Evaluation note* Author Miranda [facility] Authored October 11, 2023 9: 47am 62-year-old man referred to the GI clinic for evaluation of rectal pain. Patient has been having discomfort in the rectum for the last 2 months. He had a colonoscopy in [place] a year ago which was normal as per patient. Will arrange for Flex [facility] Work Phone: [phone]) 963-737407-03-2023 Evaluation note* Encounter Date Diagnosis Assessment Notes Treatment Notes Treatment Clinical Notes Aug, Jorden-rectal abscess (ICD-10 - K61.1) Much improved clinically. He is to continues w/ soaking in tub and wiping w/ Tucks wipes. He is to avoid straining Resume normal activity as tolerated Notify office w/ any recurrent symptoms Rx w/ additional 5 days of antibiotics [employer] Other 07-03-2023 Evaluation note* Encounter Date Diagnosis [...] Screening for colon cancer (ICD-10 - Z12.11) [employer] Other 06-26-2023 Evaluation note* Encounter Date Diagnosis Assessment Notes Treatment Notes Treatment Clinical Notes Jul, Jorden-rectal abscess (ICD-10 - K61.1) Sitz baths daily, gentle cleansing. Avoid straining Recheck in 1 wk. [employer] Other 04-05-2023 Evaluation note* Encounter Date Diagnosis Assessment Notes Treatment Notes Treatment Clinical Notes May, Rupture of right biceps tendon, initial encounter (ICD-10 - S46.211A) Refer to Orthopedics for guidance on rehabilitation. May, Acute pain of right shoulder (ICD-10 - M25.511) Ice/heat and Advil as needed. [employer] Other 01-23-2023 Evaluation note* Encounter Date Diagnosis [...] continue exercise to achieve/maintain a normal BMI. [employer] Other 08-11-2017 Evaluation note* Encounter Date Diagnosis Assessment Notes Treatment Notes Treatment Clinical Notes Sep, Dysuria (ICD-10 - R30.0) Dysuria [employer] Other Evaluation + Plan note No data available for this section [facility] Evaluation noteNo [employer] Other Evaluation note* Diagnosis Onset Date Resolution Status Benign prostatic hyperplasia with nocturia acute Essential (primary) hypertension acute TEODORA (generalized anxiety disorder) acute Hyperlipidemia type II acute Screening PSA (prostate specific antigen) noneactive Wellness examination noneact roberto [facility] Work Phone: Evaluation note* Diagnosis Onset Date Resolution Status Admit Date Low back pain with radiation acute March 18, 2024 11:23am [facility] Work Phone: Evaluation note* Diagnosis Actinic [...] KNEE ARTHROSCOPY Hospitalization History SEE SURGICAL HX [employer] Other History general Narrative - Reported* Type [...] Colonoscopy 09/2022 Hospitalization History SEE SURGICAL HX [employer] Other Hospital Discharge instructions No data available for this section [facility] Progress note No data available for this section [facility] Reason for referral (narrative)* Reason Referral for evaluat ion of suspected jorden rectal abscess/fistula along with a screening colonoscopy Diagnosis 1 Jorden-rectal abscess (K61.1) Diagnosis 2 Screening for colon cancer (Z12.11) Referral Organization [facility] [employer] dariela Referring Provider First Name Nayan Referring Provider Last Name Nazario Referring Provider Specialty Internal [facility] Referred Organization [facility] Referred Provider Warren Medina Referred Address [address], [place],[address] Referred Provider Specialty Surgery Referral Priority Routine General Notes Mr. Donaldson present ed w/ rectal pain but denies abdominal pain, melena, hematochezia or tenesmus. His pain was limited to wiping. He was found to have a jorden rectal abscess, which responded to antibiotics. He is being referred for further evaluation of this condition as well as a screening colonoscopy [employer] Other Summary Purpose Family History No Family [...] eps tendon, initial encounter (S46.211A) Referral Organization [facility] [employer] dariela Referring Provider First Name Nayan Referring Provider Last Name Nazario Referring Provider Specialty Internal [facility] Referred Organization [facility] Referred Provider Josh Barrow Referred Address ,[place], [place],[address] Referred Provider Specialty Orthopedic S urgery Referral [...] Records FoundNo Status Records FoundNo Status Records FoundNo Status Records Found INFORMATION SOURCE (unrecogn ized section and content) DATE CREATED AUTHOR 09/25/2020 [facility] DATE CREATED AUTHOR AUTHOR'S ORGANIZ ATION 10/31/2022 [facility] DATE CREATED AUTHOR AUTHOR'S ORGANIZ ATION 04/03/2024 [facility] EPIC DATE CREATED AUTHOR AUTHOR'S ORGANIZ ATION 06/08/2024 [facility] REASON FOR VISIT (unrecogniz ed section [...] March 18, 2024 End: March 18, 2024 [employer] Relationship Specialty Start Date End Date Nayan Lange MD [address] [facility] [place] [id number] PCP - General 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 [facility] [employer] [facility]. provides no warranty or guarantee of the accuracy or completeness of information in this document.
--- NOTE | 2024-06-11 09:08 | P.CN_ITS ---
Consult Note: HPI Data of Consult Patient: known to practice within the last 3 years Requesting Physician: Rosie Mcdonough NP Primary Care Provider: Nayan Lange DO Consult Narrative Reason for consult: right buttock/low back pain Narrative: Brady Donaldson a pleasant 63 year old male presents for evaluation and management of chronic low back pain. pain started 6 months ago without known injury or cause, in the last 6 months he has failed >6 weeks of PT and provider guided HEP, heat, ice, tylenol, and NSAIDs. denies falls or injury. recent lumbar MRI consistent with multilevel DDD and lumbar spondylosis, mild narrowing at L4,5,S1. pain today 3 increasing to 18/10 with standing walking and activity. recently underwent right L4-5 L5-S1 TFESI with moderate improvement, however continues to have right buttock and SIJ pain. cc:: CC: Rosie Mcdonough NP Review of Systems ROS Status of ROS 10 or more systems reviewed and unremark able except as noted in history and below Musculoskeletal Reports: back pain and extremity pain PFSH PFSH Medical History (Updated 06/11/24 @ 09:09 by Rosie Mcdonough NP) Tear of right glenoid labrum ?S43.431A - Superior glenoid labrum lesion of right shoulder, initial encounter (ICD-10) Screening for malignant neoplasm of colon ?Z12.11 - Encounter for screening for malignant neoplasm of colon (ICD-10) Pure hypercholesterolemia ?E78.00 - Pure hypercholesterolemia, unspecified (ICD-10) Overweight ?E66.3 - Overweight (ICD-10) Hyperlipidemia ?E78.5 - Hyperlipidemia, unspecified (ICD-10) Generalized anxiety disorder ?F41.1 - Generalized anxiety disorder (ICD-10) Essential hypertension ?I10 - Essential (primary) hypertension (ICD-10) Erectile dysfunction ?N52.9 - Male erectile dysfunction, unspecified (ICD-10) Multilevel cervical spondylosis without myelopathy ?M47.812 - Spondylosis without myelopathy or radiculopathy, cervical region (ICD-10) BPH (benign prostatic hyperplasia) ?N40.0 - Benign prostatic hyperplasia without lower urinary tract symptoms (ICD-10) Anorectal abscess ?K61.2 - Anorectal abscess (ICD-10) Surgical History H/O breast biopsy ?Z98.890 - Other specified postprocedural states (ICD-10) H/O arthroscopy of knee ?Z98.890 - Other specified postprocedural states (ICD-10) History of colonoscopy ?Z98.890 - Other specified postprocedural states (ICD-10) Family History Mother Family history of COPD (chronic obstructive pulmonary disease) Hypertension Father Diabetes mellitus Social History Within the past year, how often did you have a drink containing alcohol: 2-4 times a month Within the past year, how many standard drinks containing alcohol did you have on a typical day: 1 or 2 Total score: 0 Score interpretation: A score less than 4 is consistent with normal alcohol consumption. 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 Highest level of school completed/degree received: high school graduate Meds Home Medications and Allergies Home Medications ?Medication ?Instructions ?Recorded ?Confirmed ?Type alprazolam 0.5 mg tablet 0.5 mg PO DAILY 10/17/22 06/02/24 History lovastatin 40 mg tablet 40 mg PO DAILY 10/17/22 06/02/24 History paroxetine HCl 30 mg tablet 30 mg PO DAILY 10/17/22 06/02/24 History Allergies Allergy/AdvReac Type Severity Reaction Status Date / Time Penicillins Allergy Vomiting Verified 06/02/24 09:47 Exam Constitutional Documenting provider has reviewed patient's vital signs: yes Common normals: no apparent distress, oriented x3, healthy appearing, alert and well nourished General appearance: cooperative [facility] Common normals: normocephalic, hearing grossly normal bilaterally and moist oral mucous membranes Head and scalp: normocephalic Eye Common normals: PERRL Pupil: PERRL Neck & C-Spine Common normals: full ROM General: normal visual inspection Chest Common normals: inspection of chest normal Respiratory Common normals: normal respiratory effort, no retractions and no use of accessory muscles Back & Pelvis Lumbar spine/lower back: lumbar ROM normal and straight leg raise negative bilaterally; no pain with ROM, no lumbar spinal tenderness and no paraspinal muscle tenderness Sacroiliac joints: SI joint(s) abnormal Other: sensation intact BLE strength 5/5 in BLE right sij positive camila(patricks), gaenslens, thigh thrust, compression test Neuro Common normals: oriented x3, CN's II-XII intact bilaterally, moves all extremities, no focal motor deficits, no sensory deficits noted and deep tendon reflexes 2+ bilaterally Sensorium/orientation: alert Motor exam: no movement abnormalities noted Psych Common normals: mental status grossly normal, thought process normal, cooperative, affect normal, speech normal and activity/motor behavior normal Speech: normal speech Thought process: normal thought process Results Additional Findings Additional findings: If on a controlled substance or opioids, I have checked an [place]AR[place] report on this patient and there are no aberrancies noted in the prescribing history.??If on a controlled substance or opioid a drug screen was completed and reviewed within the last year, and if there has not been a drug screen completed we ordered one today to monitor higher risk, state monitored pain medication use. As part of providing excellent, safe, comprehensive care, the following was completed at our patient's visit: 1. A medication reconciliation and review to ensure accurate knowledge of current/active medications, including asking our patients to inform us about any kcvt-ptc-eomyeax medications or herbal remedies/nutritional supplements/alternative remedies. 2. A review to specifically ensure our patients have had annual screening for screening for depression, screening for tobacco use, and screening for unhealthy alcohol use. For concerning screenings had a discussion with the patient, provided patient education, and recommended follow-up with primary care provider when appropriate. If patient noted with a risk of falling, they received education on strength, gait, and balance training to prevent future risk of falling. Portions of this note may have been carried over from the previous visit and updated as appropriate. Please note this office utilizes paper charting in addition to the electronic medical record. A list of current medications, vitals, and PMH is available there as the clinical staff outside of myself do not have access to [employer] charting during the clinic day operations. As part of providing quality comprehensive care the current medications, vitals, and PMH were reviewed in the paper chart. Assessment and Plan Assessment and Plan (1) Sacroiliitis: (2) Bulging lumbar disc: (3) Lumbar degenerative disc disease: (4) Lumbar spondylosis: (5) Lumbar stenosis with neurogenic claudication: Plan The patient has had over 3 months of moderate to severe low back and right SIJ pain with functional impairment and inadequate response to conservative care including NSAIDS (unless there are contraindication such as concurrent blood thinners), multiple oral or topical pain medications, and home exercise program/physical therapy.? Patient has completed >6 weeks of guided home exercise program and/or formal physical therapy program without relief of their symptoms.? I have reviewed the imaging of the lumbar spine and no red flags were identified.? The Oswestry Disability Index was completed, and the patient scored a 14%.? The patient noted the following:?? moderate to severe pain impacting ADLs, sitting, standing, travel? We discussed the risks and benefits of the procedure with the patient, and we are NOT planning on using sedation as outlined in the guidelines from Medicare unless there is a documented reason that sedation would be strongly recommended.???The procedure will be completed with fluoroscopic guidance.? proceed with right SIJ injection under fluoroscopy, risks vs benefits reviewed f/u 2 weeks after injection
== END 2024-06-11 08:53 | disposition home or self-care (01) ==
LOC: PM 08:52
PROVIDERS: PCP Internal Medicine; Visit Provider Nurse Practitioner
DX: M46.1 Sacroiliitis, not elsewhere classified (principal); M51.369 Other intervertebral disc degeneration, lumbar region without mention of lumbar back pain or lower extremity pain; M47.816 Spondylosis without myelopathy or radiculopathy, lumbar region; M48.062 Spinal stenosis, lumbar region with neurogenic claudication
CPT/HCPCS: G0463

== ENCOUNTER 2024-06-23 09:30 | Day surgery (SDC) | payer OTHER, SELFPAY ==
[2024-06-23 10:27] VITALS: BP 136/90; PULSE 88; TEMP 36.4; O2SAT 97
[2024-06-23 10:45] VITALS: BP 136/83; PULSE 82; O2SAT 96
[2024-06-23] MEDS: BUPIVACAINE HCL 0.25% PF 25 MG/10 ML VIAL 2 ML INJ (10:45)
[2024-06-23] MEDS: IOHEXOL 240 MG/ML - 10 ML VIAL 24 MG INJ (10:45)
[2024-06-23] MEDS: METHYLPREDNISOLONE ACETATE 40 MG/ML VIAL INJ (10:46)
[2024-06-23] MEDS: LIDOCAINE HCL 2% 400 MG/20 ML MDV INJ (10:46)
[2024-06-23 10:47] VITALS: BP 142/83; PULSE 83; O2SAT 95
--- NOTE | 2024-06-23 10:49 | W.PM.PROCNOT ---
Date of procedure: 06/23/24 Pre-op diagnosis: Pain due to right sacroiliitis Post-op diagnosis: same as pre-op Procedure: Procedure: Right sacroiliac joint injection Medications: Bupivacaine 0.25% 3cc, depomedrol 40mg After informed consent was obtained, the patient was brought to the medical procedure unit and placed in the prone position, when a timeout was completed verifying correct patient, procedure, site, positioning, implant, and/or special equipment.? The skin overlying the area was prepped and draped in standard sterile fashion using alcohol.? A 25-gauge needle was inserted towards the right sacroiliac joint under direct fluoroscopic imaging.? Needle tip was advanced until the joint was encountered.? We instilled a total of 2 mL of solution.? Postoperatively needles were removed.? The patient tolerated the procedure well without complication.? The patient reported reduction in pain symptoms postoperatively. Anesthesia: Local Surgeon: Dominic Meeks Pathology: none sent Condition: stable Disposition: no change
== END 2024-06-23 10:50 | disposition home or self-care (01) ==
LOC: SURGOUT 09:31
PROVIDERS: PCP Internal Medicine; Visit Provider Anesthesiology
DX: M46.1 Sacroiliitis, not elsewhere classified (principal)
CPT/HCPCS: 27096; J0665; J1010; Q9966

== ENCOUNTER 2024-07-30 09:15 | Outpatient (OUT) | payer OTHER, SELFPAY ==
--- NOTE | 2024-07-30 09:26 | PM.CN ---
Consult Note: HPI Data of Consult Patient: known to practice within the last 3 years Requesting Physician: Rosie Mcdonough NP Primary Care Provider: Nayan Lange, Consult Narrative Reason for consult: right buttock/low back pain Narrative: Brady Donaldson a pleasant 63 year old male presents for evaluation and management of chronic low back pain. pain started 6 months ago without known injury or cause, in the last 6 months he has failed >6 weeks of PT and provider guided HEP, heat, ice, tylenol, and NSAIDs. denies falls or injury. recent lumbar MRI consistent with multilevel DDD and lumbar spondylosis, mild narrowing at L4,5,S1. pain today 3 increasing to 18/10 with standing walking and activity. recently underwent right SIJ injection with significant improvement ongoing. notes mild-moderate pain with long periods of sitting. cc:: CC: Rosie Mcdonough NP Review of Systems ROS Status of ROS 10 or more systems reviewed and unremarkable except as noted in history and below [facility] Medical History (Updated 07/30/24 @ 09:49 by Rosie Mcdonough NP) Tear of right glenoid labrum ?S43.431A - Superior glenoid labrum lesion of right shoulder, initial encounter (ICD-10) Screening for malignant neoplasm of colon ?Z12.11 - Encounter for screening for malignant neoplasm of colon (ICD-10) Pure hypercholesterolemia ?E78.00 - Pure hypercholesterolemia, unspecified (ICD-10) Overweight ?E66.3 - Overweight (ICD-10) Hyperlipidemia ?E78.5 - Hyperlipidemia, unspecified (ICD-10) Generalized anxiety disorder ?F41.1 - Generalized anxiety disorder (ICD-10) Essential hypertension ?I10 - Essential (primary) hypertension (ICD-10) Erectile dysfunction ?N52.9 - Male erectile dysfunction, unspecified (ICD-10) Multilevel cervical spondylosis without myelopathy ?M47.812 - Spondylosis without myelopathy or radiculopathy, cervical region (ICD-10) BPH (benign prostatic hyperplasia) ?N40.0 - Benign prostatic hyperplasia without lower urinary tract symptoms (ICD-10) Anorectal abscess ?K61.2 - Anorectal abscess (ICD-10) Surgical History H/O breast biopsy ?Z98.890 - Other specified postprocedural states (ICD-10) H/O arthroscopy of knee ?Z98.890 - Other specified postprocedural states (ICD-10) History of colonoscopy ?Z98.890 - Other specified postprocedural states (ICD-10) Family History Mother Family history of COPD (chronic obstructive pulmonary disease) Hypertension Father Diabetes mellitus Social History Within the past year, how often did you have a drink containing alcohol: 2-4 times a month Within the past year, how many standard drinks containing alcohol did you have on a typical day: 1 or 2 Total score: 0 Score interpretation: A score less than 4 is consistent with normal alcohol consumption. 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 Highest level of school completed/degree received: high school graduate Meds Home Medications and Allergies Home Medications ?Medication ?Instructions ?Recorded ?Confirmed ?Type alprazolam 0.5 mg tablet 0.5 mg PO DAILY 10/17/22 06/23/24 History lovastatin 40 mg tablet 40 mg PO DAILY 10/17/22 06/23/24 History paroxetine HCl 30 mg tablet 30 mg PO DAILY 10/17/22 06/23/24 History Allergies Allergy/AdvReac Type Severity Reaction Status Date / Time Penicillins Allergy Vomiting Verified 06/23/24 10:25 Exam Constitutional Documenting provider has reviewed patient's vital signs: yes Common normals: no apparent distress, oriented x3, healthy appearing, alert and well nourished General appearance: cooperative HENMT Common normals: normocephalic, hearing grossly normal bilaterally and moist oral mucous membranes Head and scalp: normocephalic Eye Common normals: PERRL Pupil: PERRL Neck & C-Spine Common normals: full ROM General: normal visual inspection Chest Common normals: inspection of chest normal Respiratory Common normals: normal respiratory effort, no retractions and no use of accessory muscles Back & Pelvis Lumbar spine/lower back: lumbar ROM normal and straight leg raise negative bilaterally; no pain with ROM, no lumbar spinal tenderness and no paraspinal muscle tenderness Sacroiliac joints: SI joints normal Other: sensation intact BLE strength 5/5 in BLE right sij negative camila(patricks), gaenslens, thigh thrust, compression test mild pain with deep palpation over ischial bursa Neuro Common normals: oriented x3 Sensorium/orientation: alert Motor exam: no movement abnormalities noted Psych Common normals: mental status grossly normal, thought process normal, cooperative, affect normal, speech normal and activity/motor behavior normal Speech: normal speech Thought process: normal thought process Results Additional Findings Additional findings: If on a controlled substance or opioids, I have checked an [place] report on this patient and there are no aberrancies noted in the prescribing history.??If on a controlled substance or opioid a drug screen was completed and reviewed within the last year, and if there has not been a drug screen completed we ordered one today to monitor higher risk, state monitored pain medication use. As part of providing excellent, safe, comprehensive care, the following was completed at our patient's visit: 1. A medication reconciliation and review to ensure accurate knowledge of current/active medications, including asking our patients to inform us about any [id number] medications or herbal remedies/nutritional supplements/alternative remedies. 2. A review to specifically ensure our patients have had annual screening for screening for depression, screening for tobacco use, and screening for unhealthy alcohol use. For concerning screenings had a discussion with the patient, provided patient education, and recommended follow-up with primary care provider when appropriate. If patient noted with a risk of falling, they received education on strength, gait, and balance training to prevent future risk of falling. Portions of this note may have been carried over from the previous visit and updated as appropriate. Please note this office utilizes paper charting in addition to the electronic medical record. A list of current medications, vitals, and PMH is available there as the clinical staff outside of myself do not have access to [employer] charting during the clinic day operations. As part of providing quality comprehensive care the current medications, vitals, and PMH were reviewed in the paper chart. Assessment and Plan Assessment and Plan (1) Sacroiliitis: (2) Ischial bursitis of right side: (3) Lumbar stenosis with neurogenic claudication: (4) Lumbar degenerative disc disease: Plan continue HEP as tolerated encouraged otc NSAIDs prior to long periods of sitting f/u 3 months, sooner if needed
--- OUTSIDE RECORDS SUMMARY | 2024-08-04 06:37 | XMS_ITS | CCD ---
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 Name Role Phone NAZARIO, DR FONTANEZ Primary Care Unavailable NAZARIO, DR FONTANEZ Admitting Unavailable NAZARIO, DR FONTANEZ Attending Unavailable NAZARIO, DR FONTANEZ Consulting Unavailable NAZAIRO, DR FONTANEZ Admitting Unavailable NAZARIO, DR FONTANEZ Attending Unavailable NAZARIO, DR FONTANEZ Consulting Unavailable NAZARIO, DR FONTANEZ Primary Care Unavailable ALLISON, DR KAREEM Marc Consulting Monica Lange, Nayan Unavailable NAYAN LANGE Primary Care Physician Warren MEDINA Attending Unavailable NAZARIO, NAYAN Referring Unavailable NILKeisha, Warren Maxwell Attending Unavailable NAZARIO, NAYAN Referring Unavailable NILKeisha, Warren Maxwell Attending Unavailable Nazario HERNANDEZ, Nayan Lozada Primary Care Provider KYLIE FARRAR Attending Monica Meeks MD, Dominic Odonnell Attending Unavailable Jeanna HERNANDEZ, Dominic Odonnell Attending Unavailable Allergies Allergy Classification Reported Allergen(s) Allergy Type Date of Onset Reaction(s) Facility (9 sources) HMG-CoA reductase inhibitor Drug allergy Unknown [facility] Other (1 source) No Known Medication Allergies; Translations: [No Known Medication Allergies] Propensity to adverse reactions (disorder) [facility] Repository (2 sources) patient allergy list reviewed by nurse or physicia Propensity to adverse reactions 9 Comment:Done [facility] Other (3 sources) Penicillins Allergy to substance 4 nausea/vomitin g [facility] (3 sources) Xdumseo-SMR-UeZ Reductase Inhibitor Allergy to substance 4 Unknown Reaction [facility] (2 sources) Penicillin G Drug Allergy [...] tablet Discontinued 250 MG PO As Directed 6 May 21, 2023 11:00pm October 11, 2023 8:25am [...] oral tablet (11 sources) Nitroimidazole Antimicrobial Start: End: take 1 tablet by mouth three [...] yes Amount of lidocaine used: 0.3 cc [facility] Outside Colonoscopyon 2022 Outside Colonoscopy [id number]: 127 [facility] Reminderson 10-26-2022 Reminders - From: Heather Pepper LPN To: N - Clinical; Sent: 10/26/2022 09:57:03 EDT Show up: 09/24/2032 07:00:00 EDT Subject: colonoscopy recall Due Date/Time: 10/25/2032 07:00:00 EDT Reminder/Recall Patient due for screening colonoscopy 10/25/2032. Normal [facility] Consent for Procedure/Surger yon 09-21-2022 Consent for Procedure/Surgery [id number]: 127 [facility] Facesheeton 09-21-2022 Facesheet [id number]: 127 [facility] Ambulatory Visit Summaryon 0 09-20-2022 Ambulatory [...] disorder Hyperlipidemia Overweight Pure hypercholesterolemia Normal [facility] General Surgery Office/Clini c Noteon 09-20-2022 [...] mellitus typ (more content not included)... Normal [facility] Comment on above: Result Comment: Elec tronically Signed By: SHANNAN HERNANDEZ, Warren Gonzales\Date and Time Signed: 09/20/22 16:54 EDT Physician Referralon 023 Physician Referral [id number]: 127 Normal [facility] CBC AUTO DIFFon 09-20-2020 BASO # 0.1 103/ul Normal 0.0-0.1 [facility] Comment on above: Performed By: #### C BC #### [facility] [address], [place] [address] Hailee Sally Basophils/100 WBC (Bld) 0.9 % Normal 0.2-2.0 [facility] Comment on above: Performed By: #### C BC #### [facility] [address], [place] [address] Hailee Sally EO # 0.3 103/ul Normal 0.0-0.7 [facility] Comment on above: Performed By: #### C BC #### [facility] [address], [place] [address] Hailee Sally Eosinophils/100 WBC (Bld) 4.8 % Normal 0.9-7.0 [facility] Comment on above: Performed By: #### C BC #### [facility] [address] [place], [place] [id number] Hailee Sally Erythrocyte distribution width (RBC) [Ratio] 12.4 % Normal 11.0-15.0 [facility] Comment on above: Performed By: #### C BC #### [facility] [address] [place] [id number] Hailee Sally Hematocrit (Bld) [Volume fraction] 47.8 % Normal 42.0-54.0 [facility] Comment on above: Performed By: #### C BC #### [facility] [address] [place] [address] Hailee Sally Hemoglobin (Bld) [Mass/Vol] 16.1 g/dL Normal 14.0-18.0 [facility] Comment on above: Performed By: #### C BC #### [facility] [address] [place] [address] Hailee Sally IG # 0.02 10e3/ul Normal 0.00-0.03 [facility] Comment on above: Performed By: #### C BC #### [facility] [address] [place] [address] Hailee Sally IG % 0.4 % Normal 0.0-0.5 [facility] Comment on above: Performed By: #### C BC #### [facility] [address] [place] [address] Hailee Sally LYMPH # 1.8 103/ul Normal 1.2-3.8 [facility] Comment on above: Performed By: #### C BC #### [facility] [address] [place], [place] [id number] Hailee Sally Lymphocytes/100 WBC (Bld) 32.0 % Normal 20.5-60.0 [facility] Comment on above: Performed By: #### C BC #### [facility] [address] [place], [place] [id number] Hailee Sally MANUAL DIFF REQ NO Normal [facility] Comment on above: Performed By: #### C BC #### [facility] [address] [place] [id number] Hailee Zavala MCH (RBC) [Entitic mass] 31.7 pg Normal 25.9-34.0 [facility] Comment on above: Performed By: #### C BC #### [facility] [address] [id number] Hailee Zavala MCHC (RBC) [Mass/Vol] 33.7 g/dL Normal 29.9-35.2 [facility] Comment on above: Performed By: #### C BC #### [facility] [address] [place] [id number] Hailee Zavala MCV (RBC) [Entitic vol] 94.1 fL Critically high 80.0-94.0 [facility] Comment on above: Performed By: #### C BC #### [facility] [address] [place] [address] Hailee Zavala MONO # 0.7 103/ul Normal 0.3-0.8 [facility] Comment on above: Performed By: #### C BC #### [facility] [address] [place], [place] [id number] Hailee Zavala Monocytes/100 WBC (Bld) 12.6 % Critically high 1.7-12.0 [facility] Comment on above: Performed By: #### C BC #### [facility] [address] [place] [address] Hailee Zavala NEUT # 2.7 103/ul Normal 1.4-6.5 [facility] Comment on above: Performed By: #### C BC #### [facility] [address] [place], [place] [id number] Hailee Zavala Neutrophils/100 WBC (Bld) 49.3 % Normal 43.0-75.0 [facility] Comment on above: Performed By: #### C BC #### [facility] [address] [place], [place] [id number] Hailee Zavala Platelet mean volume (Bld) [Entitic vol] 9.4 fL Critically low 9.5-13.5 [facility] Comment on above: Performed By: #### C BC #### [facility] [address], [place] [address] Hailee Sally PLT 257 103/ul Normal 150-450 [facility] Comment on above: Performed By: #### C BC #### [facility] [address], [place] [address] Hailee Sally RBC 5.08 106/ul Normal 4.70-6.10 [facility] Comment on above: Performed By: #### C BC #### [facility] [address], [place] [address] Hailee Sally WBC 5.5 103/ul Normal 4.0-11.0 [facility] Comment on above: Performed By: #### C BC #### [facility] [address] [place], [place] [id number] Hailee Sally LIPID PROFILEon 09-20-2020 CHOL-HDL RATIO NORM SEE BELOW Normal [facility] Comment on above: Result Comment: 3.3 - 4.4 LOW RISK 4.4 - 7.1 AVERAGE RISK 7.1 - 11.0 MODERATE RISK >11.0 HIGH RISK Performed By: #### L IPID, CMP #### [facility] [address] [place] [address] Hailee Sally Cholesterol [Mass/Vol] 290 mg/dL Critically high <=200 [facility] Comment on above: Performed By: #### L IPID, CMP #### [facility] [address] [place] [address] Hailee Sally Cholesterol in HDL [Mass/Vol] 72 mg/dL Normal [facility] Comment on above: Performed By: #### L IPID, CMP #### [facility] [address] [place] [address] Hailee Sally Cholesterol in LDL [Mass/Vol] 195.8 mg/dL Normal [facility] Comment on above: Performed By: #### L IPID, CMP #### [facility] [address] [place] [address] Hailee Sally Cholesterol.total/ Cholesterol in HDL [Mass ratio] 4.0 {ratio} Normal [facility] Comment on above: Performed By: #### L IPID, CMP #### [facility] [address] [place] [id number] Hailee Sally HDL NORMAL > or = 60 mg/dl - LO W CARDIOVASCULAR RISK <40 mg/dl - HIGH CARDIOVASCULAR RISK Normal [facility] Comment on above: Performed By: #### L IPID, CMP #### [facility] [address] [place] [address] Hailee Sally LDL CALC NORMAL SEE BELOW Normal [facility] Comment on above: Result Comment: <100 mg/dl OPTIMAL 100 - 129 mg/dl NEAR OR ABOVE OPTIMAL 130 - 159 mg/dl BORDERLINE HIGH 160 - 189 mg/dl HIGH >190 mg/dl VERY HIGH Performed By: #### L IPID, CMP #### [facility] [address] [place] [address] Hailee Sally Triglyceride [Mass/Vol] 111 mg/dL Normal <=150 [facility] Comment on above: Performed By: #### L IPID, CMP #### [facility] [address] [place], [place] [id number] Hailee Sally VLDL CALC 22.2 mg/dL Normal [facility] Comment on above: Performed By: #### L IPID, CMP #### [facility] [address] [place], [place] [id number] Haileedaja Moctezumaen PROF 14(COMP METB)on 021 Albumin [Mass/Vol] 3.8 g/dL Normal 3.5-5.0 [facility] Comment on above: Performed By: #### L IPID, CMP #### [facility] [address] [place], [place] [id number] Hailee Sally Albumin/Globulin [Mass ratio] 1.0 {ratio} Normal [facility] Comment on above: Performed By: #### L IPID, CMP #### [facility] [address] [place], [place] [id number] Hailee Sally ALP [Catalytic activity/Vol] 64 U/L Normal 38-126 [facility] Comment on above: Performed By: #### L IPID, CMP #### [facility] [address] [place], [place] [id number] Hailee Sally ALT [Catalytic activity/Vol] 36 U/L Normal 21-72 [facility] Comment on above: Performed By: #### L IPID, CMP #### [facility] [address] [place] [address] Hailee Sally Anion gap [Moles/Vol] 13.0 mmol/L Normal [facility] Comment on above: Performed By: #### L IPID, CMP #### [facility] [address] [place] [address] Hailee Sally AST [Catalytic activity/Vol] 56 U/L Normal 17-59 [facility] Comment on above: Performed By: #### L IPID, CMP #### [facility] [address] [place] [address] Hailee Sally Bilirubin [Mass/Vol] 1.0 mg/dL Normal 0.2-1.3 [facility] Comment on above: Performed By: #### L IPID, CMP #### [facility] [address] [place] [address] Hailee Sally Calcium [Mass/Vol] 9.0 mg/dL Normal 8.4-10.2 [facility] Comment on above: Performed By: #### L IPID, CMP #### [facility] [address] [place] [address] Hailee Sally Chloride [Moles/Vol] 106 mmol/L Normal 98-107 [facility] Comment on above: Performed By: #### L IPID, CMP #### [facility] [address] [place] [address] Hailee Sally CO2 [Moles/Vol] 29.4 mmol/L Normal 22.0-30.[address] [facility] Comment on above: Performed By: #### L IPID, CMP #### [facility] [address] [place] [address] Hailee Sally Creatinine [Mass/Vol] 1.00 mg/dL Normal 0.66-1.25 [facility] Comment on above: Performed By: #### L IPID, CMP #### [facility] [address] [place] [address] Hailee Sally EGFR-AF URUGUAYAN >60 Normal >=60 [facility] Comment on above: Performed By: #### L IPID, CMP #### [facility] [address] [place] [id number] Hailee Sally EGFR-NON AF URUGUAYAN >60 Normal >=60 [facility] Comment on above: Performed By: #### L IPID, CMP #### [facility] [address] [place] [phone] Hailee Sally Globulin (S) [Mass/Vol] 3.8 g/dL Normal [facility] Comment on above: Performed By: #### L IPID, CMP #### [facility] [address] [place] [address] Hailee Sally Glucose [Mass/Vol] 117 mg/dL Critically high 74-106 [facility] Comment on above: Performed By: #### L IPID, CMP #### [facility] [address] [place] [address] Hailee Sally Potassium [Moles/Vol] 5.4 mmol/L Critically high 3.4-5.0 [facility] Comment on above: Performed By: #### L IPID, CMP #### [facility] [address] [place], [place] [id number] Hailee Sally Protein [Mass/Vol] 7.6 g/dL Normal 6.1-8.2 [facility] Comment on above: Performed By: #### L IPID, CMP #### [facility] [address] [place] [address] Hailee Sally Sodium [Moles/Vol] 143 mmol/L Normal 137-145 [facility] Comment on above: Performed By: #### L IPID, CMP #### [facility] [address] [place], [place] [id number] Hailee Sally Urea nitrogen [Mass/Vol] 16.0 mg/dL Normal 9.0-20.0 [facility] Comment on above: Performed By: #### L IPID, CMP #### [facility] [address] [place], [place] [id number] Hailee Sally Urea nitrogen/Creatinin e [Mass ratio] 16.0 mg/mg Normal [facility] Comment on above: Performed By: #### L IPID, [facility] #### [facility] [address] [place] [address] Hailee Zavala XR CSPINE 2_3 VIEWSon 2020 [...] by: KAREEM COOPER Date: 2020-07-28 11:20 Normal [facility] Vital Signs Date Time Vital Sign Value Performing Clinician Facility 03-18-2024 11:31-0500 Body height 172.72 cm [facility] 03-18-2024 11:31-0500 Body mass index (BMI) [Ratio] 30.7 kg/m2 [facility] 03-18-2024 11:31-0500 Body weight 91.73 kg [facility] 03-18-2024 11:31-0500 Diastolic blood pressure 83 mm[Hg] [facility] 03-18-2024 11:31-0500 Heart rate 82 /min [facility] 03-18-2024 11:31-0500 Respiratory rate 12 /min [facility] 03-18-2024 11:31-0500 Systolic blood pressure 130 mm[Hg] [facility] 11-05-2023 15:50-0400 Body height 172.72 cm [facility] 11-05-2023 15:50-0400 Body mass index (BMI) [Ratio] 28.5 kg/m2 [facility] 11-05-2023 15:50-0400 Body weight 85.27 kg [facility] 11-05-2023 15:50-0400 Diastolic blood pressure 85 mm[Hg] [facility] 11-05-2023 15:50-0400 Heart rate 86 /min [facility] 11-05-2023 15:50-0400 Respiratory rate 12 /min [facility] 11-05-2023 15:50-0400 Systolic blood pressure 138 mm[Hg] [facility] 10-11-2023 09:18-0400 Body height 172.72 cm [facility] 10-11-2023 09:18-0400 Body mass index (BMI) [Ratio] 27.9 kg/m2 [facility] 10-11-2023 09:18-0400 Body weight 83.46 kg [facility] 10-11-2023 09:18-0400 Diastolic blood pressure 83 mm[Hg] [facility] 10-11-2023 09:18-0400 Heart rate 76 /min [facility] 10-11-2023 09:18-0400 Systolic blood pressure 129 mm[Hg] [facility] 05-21-2023 11:49-0400 Body height 172.72 cm [facility] 05-21-2023 11:49-0400 Body mass index (BMI) [Ratio] 30.1 kg/m2 [facility] 05-21-2023 11:49-0400 Body weight 89.92 kg [facility] 05-21-2023 11:49-0400 Diastolic blood pressure 89 mm[Hg] [facility] 05-21-2023 11:49-0400 Heart rate 98 /min [facility] 05-21-2023 11:49-0400 Respiratory rate 12 /min [facility] 05-21-2023 11:49-0400 Systolic blood pressure 145 mm[Hg] [facility] 09-20-2022 14:56-0400 Blood Pressure Location Warren MEDINA [facility] 09-20-2022 14:56-0400 Diastolic blood pressure 92 mm[Hg] Warren MEDINA [facility] 09-20-2022 14:56-0400 Heart rate 72 /min Warren MEDINA [facility] 09-20-2022 14:56-0400 Respiratory rate 16 /min Warren MEDINA [facility] [place] 09-20-2022 14:56-0400 Systolic blood pressure 132 mm[Hg] Warren MEDINA [facility] [place] 08-28-2022 08:45-0400 Body height 172.72 cm Nayan Ball Other [facility] Other 08-28-2022 08:45-0400 Body mass index (BMI) [Ratio] 28.61 kg/m2 Nayan Ball Other [facility] Other 08-28-2022 08:45-0400 Body weight 85.37 kg Nayan Ball Other [facility] Other 08-28-2022 08:45-0400 Diastolic blood pressure 86 mm[Hg] Nayan Ball Other [facility] Other 08-28-2022 08:45-0400 Respiratory rate 12 /min Nayan Ball Other [facility] Other 08-28-2022 08:45-0400 Systolic blood pressure 126 mm[Hg] Nayan Ball Other [facility] Other 08-21-2022 09:30-0400 Body height 172.72 cm Nayan Ball Other [facility] Other 08-21-2022 09:30-0400 Body mass index (BMI) [Ratio] 28.61 kg/m2 Nayan Ball Other [facility] Other 08-21-2022 09:30-0400 Body weight 85.37 kg Nayan Ball Other [facility] Other 08-21-2022 09:30-0400 Diastolic blood pressure 88 mm[Hg] Nayan Ball Other [facility] Other 08-21-2022 09:30-0400 Respiratory rate 12 /min Nayan Ball Other [facility] Other 08-21-2022 09:30-0400 Systolic blood pressure 151 mm[Hg] Nayan Ball Other [facility] Other 05-31-2022 10:15-0400 Body height 172.72 cm Nayan Ball Other [facility] Other 05-31-2022 10:15-0400 Body mass index (BMI) [Ratio] 29.89 kg/m2 Nayan Ball Other [facility] Other 05-31-2022 10:15-0400 Body weight 89.18 kg Nayan Ball Other [facility] Other 05-31-2022 10:15-0400 Diastolic blood pressure 81 mm[Hg] Nayan Ball Other [facility] Other 05-31-2022 10:15-0400 SaO2% (BldA) [Mass fraction] 96 % Nayan Ball Other [facility] Other 05-31-2022 10:15-0400 Systolic blood pressure 123 mm[Hg] Nayan Ball Other [facility] Other 03-20-2022 12:30-0500 Body height 172.72 cm Nayan Ball Other [facility] Other 03-20-2022 12:30-0500 Body mass index (BMI) [Ratio] 29.16 kg/m2 Nayan Ball Other [facility] Other 03-20-2022 12:30-0500 Body weight 87 kg Nayan Lange Other [facility] Other 03-20-2022 12:30-0500 Diastolic blood pressure 76 mm[Hg] Nayan Lange Other [facility] Other 03-20-2022 12:30-0500 Respiratory rate 12 /min Nayan Ball Other [facility] Other 03-20-2022 12:30-0500 Systolic blood pressure 118 mm[Hg] Nayan Lange Other [facility] Other Encounters Encounter Date Encounter Type Care Provider Facility Start: 06-23-2024 End: 06-23-2024 ambulatory Dominic Meeks MD Facility: [facility] Start: 06-02-2024 End: 06-02-2024 ambulatory Dominic Meeks MD Facility: [facility] Start: 04-01-2024 End: 04-01-2024 Zenon Farrar MD Work Phone: [facility] Start: 04-01-2024 End: 04-01-2024 Zenon Farrar MD Work Phone: [facility] Start: 04-01-2024 End: 04-01-2024 Office outpatient new 30 minutes Kylie Farrar MD Work Phone: [facility] Comment on above: Actinic keratosis (P rimary Dx); Neoplasm of unspecified behavior of bone, soft tissue, and skin; Neoplasm of uncertain behavior of skin Start: 04-01-2024 End: 04-01-2024 ambulatory KYLIE FARRAR Not Available Start: 03-18-2024 End: 03-18-2024 ambulatory [facility] Work Phone: Start: 03-18-2024 End: 03-18-2024 Patient encounter procedure [facility] Work Phone: Start: 11-05-2023 End: 11-05-2023 ambulatory [facility] Work Phone: Start: 11-05-2023 End: 11-05-2023 Patient encounter procedure [facility] Work Phone: Start: 10-11-2023 End: 10-11-2023 ambulatory [facility] Work Phone: Start: 10-11-2023 End: 10-11-2023 Patient encounter procedure [facility] Work Phone: Start: 05-21-2023 End: 05-21-2023 ambulatory [facility] Work Phone: Start: 05-21-2023 End: 05-21-2023 Encounter for general adult medical examination without abnormal findings [facility] Start: 05-21-2023 End: 05-21-2023 Patient encounter procedure [facility] Work Phone: Start: 04-19-2023 Non-patient / Non-visit [facility] [employer] Work Phone: Start: 03-26-2023 End: 03-26-2023 ambulatory Nayan Lange Other [facility] [employer] Other Start: 03-26-2023 Nursing evaluation o f patient and report Nayan Lange [facility] Start: 03-26-2023 Telephone encounter Nayan Lange FP [facility] Start: 03-26-2023 Patient encounter procedure [facility]- Start: 10-25-2022 End: 10-26-2022 ambulatory Warren MEDINA Facility:[id number] Start: 09-20-2022 End: 09-21-2022 ambulatory Warren LONGL Facility:[facility] [place] Start: 09-20-2022 End: 09-20-2022 Patient encounter procedure Warren MEDINA [facility] Start: 09-14-2022 ambulatory Warren MEDINA Facility :[facility] Start: 09-12-2022 End: 09-12-2022 ambulatory Nayan Lange Other [facility] Other Start: 09-12-2022 Telephone encounter Nayan Lange FP [facility] Start: 09-01-2022 End: 09-01-2022 ambulatory Nayan Lange Other [facility] Other Start: 09-01-2022 Telephone encounter Nayan Lange [facility] Start: 08-28-2022 End: 08-28-2022 ambulatory Nayan Lange Other [facility] Other Start: 08-28-2022 Office outpatient visit 15 minutes Nayan Lange [facility] Start: 08-21-2022 End: 08-21-2022 ambulatory Nayan Lange Other [facility] Other Start: 08-21-2022 Office outpatient visit 15 minutes Nayan Lange [facility] Start: 05-31-2022 End: 05-31-2022 ambulatory Nayan Lange Other [facility] Other Start: 05-31-2022 Office outpatient visit 15 minutes Nayan Lange [facility] Start: 03-20-2022 End: 03-20-2022 ambulatory Nayan Lange Other [facility] Other Start: 03-20-2022 Office outpatient visit 15 minutes Nayan Lange [facility] Start: 10-08-2021 Adult health examination Nayan Lange Other [facility] Other Start: 09-23-2020 Encounter for genera l adult medical examination without abnormal findings DR NAYAN LANGE [facility] Start: 09-20-2020 End: 09-21-[address] [...] Comment on above: Performed By: #### [facility] #### [facility] [address] [place] [address] Hailee Zavala Start: 10-06-2016 End: 07-15-2019 Screening [...] Structure of right g lenoid labrum Warren NILL Plan of Treatment Date Care Activity Detail Author Start: 06-30-2024 End: 06-30-2024 Patient encounter procedure 06/30/2024 9:45 AM EDT Office Visit [facility] [address] [place] [address] Kylie Farrar MD [address] [place] [address] [facility] Start: 04-01-2024 End: 04-01-2024 Patient encounter procedure 04/01/2024 9:35 AM EST Office Visit [facility] [address] [place] [id number] Kylie Farrar MD [address] [place] [address] Arrived [facility] Comment on above: Arrived Comprehensive metabo lic 2000 panel - Serum or Plasma [facility] Dermatopathology exam Dermatopat hology exam Pathology and Cytology Timed Neoplasm of unspecified behavior of bone, soft tissue, and skin Release Upon Ordering for 1 Occurrences starting 04/01/2024 [facility] Work Phone: Comment on above: Release Upon Ordering for 1 Occurrences starting 04/01/2024 [facility] Payers Date Payer Category Payer Unknown 2021 Private Health Insurance [employer] [id number] 1959 Unknown [id number] 1959 Unknown [id number]. [id number] 1959 Unknown [id number]. 727 1959 Unknown [id number]. 727 1959 Unknown [id number]. 727 1959 Unknown [id number]. 1259 1959 Unknown [id number]. 196 1959 Unknown [id number]. 196 1959 Unknown [id number] Self-pay Self Pay [id number] Social History Date Type Detail Facility Unknown if ever smoked [facility] Other Start: 04-01-2024 Sex Assigned At F [facility] Start: 09-20-2022 End: 04-01-2024 Tobacco smoking status Never smoked tobacco (finding) [facility] Tobacco smoking status Never [facility] Start: 1960 Sex Assigned At Male F [facility] Start: 03-18-2024 Sex Male (finding[facility] Tobacco smoking status [facility] Tobacco smoking consumption unknown [facility] Start: 1960 Sex assigned at Not on file [facility] Start: 04-01-2024 Tobacco use and exposure Smokeless tobacco non-user [facility] Start: 04-01-2024 History of Social function [facility] Functional Status Date Assessment Result Facility 09-20-2022 Functional Status N/A [facility] Clinical Notes 10-06-2016 to 04-01-2024 Kylie [...] and recheck nose documented in this encounter [facility] 10-11-2023 Evaluation note Authored October 11, 2023 9: 47am 62-year-old man referred to the GI clinic for evaluation of rectal pain. Patient has been having discomfort in the rectum for the last 2 months. He had a colonoscopy in [place] a year ago which was normal as per patient. Will arrange for [facility] Work Phone: [phone] 978-531606-15-2024 Evaluation note* Author milton [facility] Authored October 11, 2023 9: 47am 62-year-old man referred to the GI clinic for evaluation of rectal pain. Patient has been having discomfort in the rectum for the last 2 months. He had a colonoscopy in [place] a year ago which was normal as per patient. Will arrange for [facility] Work Phone: [phone] 978-685507-03-2023 Evaluation note* Encounter Date Diagnosis Assessment Notes Treatment Notes Treatment Clinical Notes Aug, Jorden-rectal abscess (ICD-10 - K61.1) Much improved clinically. He is to continues w/ soaking in tub and wiping w/ Tucks wipes. He is to avoid straining Resume normal activity as tolerated Notify office w/ any recurrent symptoms Rx w/ additional 5 days of antibiotics [facility] [employer] Other 07-03-2023 Evaluation note* Encounter Date Diagnosis [...] Screening for colon cancer (ICD-10 - Z12.11) [facility] Other 06-26-2023 Evaluation note* Encounter Date Diagnosis Assessment Notes Treatment Notes Treatment Clinical Notes Jul, Jorden-rectal abscess (ICD-10 - K61.1) Sitz baths daily, gentle cleansing. Avoid straining Recheck in 1 wk. [facility] Other 04-05-2023 Evaluation note* Encounter Date Diagnosis Assessment Notes Treatment Notes Treatment Clinical Notes May, Rupture of right biceps tendon, initial encounter (ICD-10 - S46.211A) Refer to Orthopedics for guidance on rehabilitation. May, Acute pain of right shoulder (ICD-10 - M25.511) Ice/heat and Advil as needed. [facility] Other 01-23-2023 Evaluation note* Encounter Date Diagnosis [...] continue exercise to achieve/maintain a normal BMI. [facility] Other 08-11-2017 Evaluation note* Encounter Date Diagnosis Assessment Notes Treatment Notes Treatment Clinical Notes Sep, Dysuria (ICD-10 - R30.0) Dysuria [facility] Other Evaluation + Plan note No data available for this section General Surgery [place] Evaluation noteNo [employer] Other Evaluation note* Diagnosis Onset Date Resolution Status Benign prostatic hyperplasia with nocturia acute Essential (primary) hypertension acute TEODORA (generalized anxiety disorder) acute Hyperlipidemia type II acute Screening PSA (prostate specific antigen) noneactive Wellness examination noneact [facility] Work Phone: Evaluation note* Diagnosis Onset Date Resolution Status Admit Date Low back pain with radiation acute March 18, 2024 11:23am [facility] Work Phone: Evaluation note* Diagnosis Actinic [...] KNEE ARTHROSCOPY Hospitalization History SEE SURGICAL HX [facility] Other History general Narrative - Reported* Type [...] Colonoscopy 09/2022 Hospitalization History SEE SURGICAL HX [facility] Other Hospital Discharge instructions No data available for this section [facility] [place] Progress note No data available for this section [facility] [place] Reason for referral (narrative)* Reason Referral for evaluat ion of suspected jorden rectal abscess/fistula along with a screening colonoscopy Diagnosis 1 Jorden-rectal abscess (K61.1) Diagnosis 2 Screening for colon cancer (Z12.11) Referral Organization [facility] [employer] dariela Referring Provider First Name Nayan Referring Provider Last Name Nazario Referring Provider Specialty Internal [place] teresa Referred Organization [facility] Referred Provider Warren Medina Referred Address [address] [place], [place],[address] Referred Provider Specialty Surgery Referral Priority Routine General Notes Mr. Donaldson present ed w/ rectal pain but denies abdominal pain, melena, hematochezia or tenesmus. His pain was limited to wiping. He was found to have a jorden rectal abscess, which responded to antibiotics. He is being referred for further evaluation of this condition as well as a screening colonoscopy [facility] Other Summary Purpose Family History No Family [...] eps tendon, initial encounter (S46.211A) Referral Organization [facility] [employer]IF[employer] C dariela Referring Provider First Name Nayan Referring Provider Last Name Nazario Referring Provider Specialty Internal [place] teresa Referred Organization [facility] Referred Provider Josh Barrow Referred Address ,[place], [place],[address] Referred Provider Specialty Orthopedic S urgery Referral [...] and content) DATE CREATED AUTHOR 09/25/2020 [facility] DATE CREATED AUTHOR AUTHOR'S ORGANIZ ATION 10/31/2022 [facility] DATE CREATED AUTHOR AUTHOR'S ORGANIZ ATION 04/03/2024 [facility] EPIC DATE CREATED AUTHOR AUTHOR'S ORGANIZ ATION 07/06/2024 [facility] REASON FOR VISIT (unrecogniz ed section [...] Provider Active Start: November 05, 2023 End: Jacinda 9th, 2024 Team Status: Inactive Member Role Status Dates Nayan Lange , DO Primary Care Provide r, Attending Provider Active Start: March 18, 2024 End: March 18, 2024 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 [employer] provides no warranty or guarantee of the accuracy or completeness of information in this document.
== END 2024-07-30 09:16 | disposition home or self-care (01) ==
LOC: PM 08-04 06:36
PROVIDERS: PCP Internal Medicine; Visit Provider Nurse Practitioner
DX: M46.1 Sacroiliitis, not elsewhere classified (principal); M70.71 Other bursitis of hip, right hip; M48.062 Spinal stenosis, lumbar region with neurogenic claudication; M51.369 Other intervertebral disc degeneration, lumbar region without mention of lumbar back pain or lower extremity pain
CPT/HCPCS: G0463

== ENCOUNTER 2024-09-05 09:12 | Outpatient (OUT) | payer OTHER, SELFPAY ==
--- OUTSIDE RECORDS SUMMARY | 2024-09-01 06:41 | XMS_ITS | Continuity of Care Document ---
Author Organization [facility] Address [address] [place] [address] Phone Care Team Providers Care Engineered Wood Designer Name Role Phone Nayan Lange DO Primary Care Provider Nayan Lange DO Attending Provider [phone] Care Teams Patient Care Team Team Status: Active Member Role Status Dates Nayan Lange DO Primary Care Provider Active Patient Care Team Team Status: Inactive Member Role Status Dates Nayan Lange DO Primary Care Provider Active Start: September 01, 2024 End: September 01, 2024 Nayan Lange DO Attending Provider Active Sta rt: September 01, 2024 End: September 01, 2024 Chief Complaint and Reason for Visit Chief Complaint Admit Date Wellness September 01, 2024 9:46a m Reason for Visit Admit Date Essential (primary) hypertension August 9:46am TEODORA (generalized anxiety disorder) September 01, 2024 9:46am Hyperlipidemia type II September 01, 2024 9: 46am Wellness examination September 01, 2024 9:46 am Screening PSA (prostate specific antigen ) September 01, 2024 9:46am Allergies, Adverse Reactions, Alerts Allergen Type Severity Reaction Last Updated Verified Status [id number]-[id number]-GzG Reductase Inhibitor Allergy Unknown Unknown Reaction September 01, 2 025 9:48am Yes Active Penicillins Allergy Unknown nausea/vomiting August 9:48am Yes Active Social History Smoking Status Status Start Date End Date Date of Observa tion Never smoked tobacco (finding) March 26, 2023 3:17pm Observation Status Observation Response Date of Response Legal Sex Male (finding) Sex Assigned At Male September Family History Relationship Condition Age at Onset Recorded Date/T cinthia father Diabetes mellitus Unknown Unknown mother Unknown Problems Active Problems Medical Problem Onset Date Status Comments Hyperlipidemia type II Unknown Active Elevated transaminase level Unknown Active TEODORA (generalized anxiety disorder) Unknown Active Screening PSA (prostate spec ific antigen) Unknown Active PSA:3.47 - 08/2020, 5 .66 - 04/2023, 2.8 (10.4%) - 06/2023, 3.54 - 10/2023 Primary osteoarthritis of ri ght shoulder Unknown Active Erectile dysfunction Unknown Active External hemorrhoid Unknown Active Wellness examination Unknown Active IFG (impaired fasting glucose) Unknown Active Lumbar back pain with radicu lopathy affecting right lower extremity Unknown Active Essential (primary) hypertension Unknown Active Hemorrhoids Unknown Active Benign prostatic hyperplasia with nocturia Unknown Active Rectal pain Unknown Active Lumbar spondylosis Unknown Active Inactive/Resolved Problems Medical Problem Onset Date Status Comments Cervical spondylosis with radiculopathy Unknown R esolved Medications Medication Status Dose Units Route Directions Qty Days St art Date Stop Date End Date Instructions Adherence Alprazolam 0.5 mg tablet Discont inued 0.5 MG PO Three times daily 120 30 2023 3:43pm Octob er 2023 1:32p m 1 tablet bid and 2 q HS Paroxetine Hcl 30 mg tablet Discont inued 0 .ROUTE .COMPLEX 90 ua 2023 3:44pm Octob er 2023 6:51a m TAKE 1 TABLET BY MOUTH EVERY DAY Azithromyci n 250 mg tablet Discont inued 250 MG PO As Directed 6 May 22, 2023 12:00a m Augus t 2023 9:25a m Sulfamethox azole-Trime thoprim 800-160 mg tablet Discont inued 1 TAB PO Twice daily 42 May 22, 2023 12:00a m Augus t 2023 9:26a m Lovastatin 40 mg tablet Discont inued 0 .ROUTE .COMPLEX 90 August 27, 2023 5:19pm August 05, 2024 9:06a m TAKE 1 TABLET BY MOUTH EVERY DAY IN THE EVENING Paroxetine Hcl 30 mg tablet Discont inued 0 .ROUTE .COMPLEX 90 Novobe r 2023 6:51am June 17, 2024 7:40a m TAKE 1 TABLET BY MOUTH EVERY DAY Alprazolam 0.5 mg tablet Discont inued 0 .ROUTE .COMPLEX 120 30 Octobe r 2023 1:31pm August 05, 2024 9:06a m 1 PO bid and 2 q HS Paroxetine Hcl 30 mg tablet Active 0 .ROUTE .COMPLEX 90 June 17, 2024 7:40am TAKE 1 TABLET BY MOUTH EVERY DAY Complies with drug therapy Lovastatin 40 mg tablet Active 0 .ROUTE .COMPLEX 90 August 05, 2024 9:05am TAKE 1 TABLET BY MOUTH EVERY DAY IN THE EVENING Complies with drug therapy Alprazolam 0.5 mg tablet Active 0.5 MG PO .COMPLEX 120 August 05, 2024 9:06am 0.5 mg orally; 1 PO bid and 2 PO q HS Complies with drug therapy Ciprofloxac in Hcl 500 mg tablet Discont inued 500 MG PO Every 12 hours May 18, 2023 12:00a m May 21, 2023 11:48 am Lovastatin 40 mg tablet Discont inued 40 MG PO Every evening May 18, 2023 12:00a m August 27, 2023 5:19p m Metronidazo le 500 mg tablet Discont inued 500 MG PO Three times daily May 18, 2023 12:00a m May 21, 2023 11:48 am Triamcinolo ne Acetonide 0.1 % ointment Discont inued 1 APPLIC TOPICA L Twice daily May 18, 2023 12:00a m May 21, 2023 11:49 am Prednisone 20 mg tablet Discont inued 20 MG PO As Directed 2023 12:00a m September 01, 2024 9:49a m 1 tab tid w/ food x 3 days, then bid w/ food x 3 days, then qd w/ food x 3 days Paroxetine Hcl 30 mg tablet Discont inued 30 MG PO Daily 2023 1:00am u 2023 3:45p m Alprazolam 0.5 mg tablet Discont inued 0.5 MG PO Daily 2023 1:00am 2023 3:45p m TAKE 1 TABLET BY MOUTH TWICE DAILY AND 2 TABLETS BY MOUTH DAILY AT BEDTIME Vital Signs Vital Reading Result Reference Range Collection Date/Time Height 68 [in_i] September 01, 2024 9:54am Weight 85.84 kg Linette 7th, 2025 9:54am Heart Rate 99 /min 60-100 September 01, 2024 9:54am Respiratory rate 12 /min 12-24 September 01 9:54am BP Systolic 132 mm[Hg] 100-140 September 01, 2024 9:54am BP Diastolic 93 mm[Hg] 60-100 September 01, 2024 9:54am BMI (Body Mass Index) 28.8 kg/m2 September 012024 9:54am Advance Directives Advance Directive Response Recorded Date/ Time Advance Directives No October 6:18am Insurance Providers Guarantor Brady Donaldson Jr Address [address] [place] [address] Contact Info. Home Phone: Payer Policy Id Subscriber's Name Subscriber Id Effectiv e Date Expiration Date O [id number] Encounters Encounter Location(s) Arrival/Admit Date Discharge/Depart Date Provider(s) Departed Physician/Prov ider [facility] September 01, 2024 9:46am September 01, 2024 10:40am Nayan Lange , DO Recent Diagnosis Onset Date Admit Date Essential (primary) hypertension Unknown September 01, 2024 9:46am TEODORA (generalized anxiety disorder) Unknown September 01, 2024 9:46am Hyperlipidemia type II Unknown September 01, 2024 9:46am Wellness examination Unknown September 01 9:46am Screening PSA (prostate specific antigen) Unknow n September 01, 2024 9:46am Assessments Diagnosis Onset Date Resolution Status Admit Date Essential (primary) hypertension acute September 01, 2024 9 :46am TEODORA (generalized anxiety disorder) acute September 01, 2024 9 :46am Hyperlipidemia type II acute Ju 2024 9:46am Wellness examination acute September 01, 2024 9:46am Screening PSA (prostate specific antigen) noneactive September 01, 2024 9:46am Plan of Treatment Author Nayan Lange [facility] Authored August 28, 2024 7:20a m I have instructed this patie nt on a healthy diet and exercise program. I have also reviewed age-appropriate preventive testing recommended. Instructed on a healthy diet and exercise routine. Instructed to continue medical treatment w/o interruption. Instructed to avoid abrupt d/c of medication due to w/d symptoms. I have instructed this patient on a low fat, high fiber diet and exercise. I have discussed the primary and secondary prevention benefits attributed to lowering LDL cholesterol. I have also discussed the medical treatment of elevated cholesterol, which is based on the 10 year ASCVD risk. I have instructed this patient to consume a healthy, low-fat, low-salt diet. I have also encouraged them to continue exercise with weight loss to achieve/maintain a BMI < 30. I have instructed this patient on the correct procedure for obtaining home BP measurements: - rest for 5 minutes w/o talking. - positioned w/ feet on floor and arms supported. - average best 2/3 readings w/ goal < 135/85. - update office w/ home readings in 2 weeks. I have recommended yearly PSA testing. I have informed him that the PSA can be elevated w/ cancer, infection and enlarged prostates. I have explained to the patient, that If his PSA is elevated, while there are many causes, referral will be recommended to r/o cancer. He would be referred to Urology, who may recommend an MRI, TRUS/bx or possibly continued monitoring. He is agreeable to this plan of action PSA: 2.34 - 10/2018, 3.47 - 08/2020, 5.66 - 04/2023, 3.54 - 10/2023 Future Tests Future scheduled test information is unavailable Pending Tests Test Name Ordered Date Scheduled Date Comprehensive Metabolic Panel September 01, 2024 10: 35am Future Visits Future appointment information is unavailable Referrals to Other Providers Referral information is unavailable Future Procedures Procedure Name Ordered Date Scheduled Date Complete Blood Count Auto Diff September 01, 2024 10 :35am Lipid Panel September 01, 2024 10:35am Future Medications Future medication information is unavailable Patient Instructions Patient instructions are unavailable
--- OUTSIDE RECORDS SUMMARY | 2024-09-05 09:17 | XMS_ITS | Clinical Summary ---
Author Organization [facility] Address [address] [place] [address] Care Team Providers Care Orthopaedic Technologist Name Role Phone Nayan Lange Primary Care Provider [phone] Allergies Active Allergy Reactions Criticality Noted Date Comments Penicillin G Unknown 04/01/2024 Medications ALPRAZolam (Xanax) 0.5 MG tablet TAKE 1 TABLET TWICE A DAY AND 2 AT BEDTIME 12/27/2023 Active fenofibrate (Triglide) 160 MG tablet 1 (one) time each day at the same time Active lovastatin (Mevacor) 40 MG tablet Take 40 mg by mouth in the evening Active PARoxetine (Paxil) 30 MG tablet Take 30 mg by mouth Daily Active fluorouracil (Efudex) 5 % creamIndication s:Actinic keratosis Apply to directed areas on the cheeks twice a day x 14 days. Dispense 30 day supply but only use for 14 days. 40 g 04/01/2024 Active Active Problems No known active problems Social History Tobacco Use Types Packs/Day Years Used Date Smoking Tobacco: Never Smokeless Tobacco: Never Tobacco Cessation:Counseling Given: Not Answered Sex and Gender Information Value Date Recorded Sex Assigned at Not on file Legal Sex Male 7:01 PM EDT Gender Identity Not on file Sexual Orientation Not on file Last Filed Vital Signs Vital Sign Reading Time Taken Comments Blood Pressure 126/60 03/22/2017 12:00 PM EST Pulse - - Temperature - - Respiratory Rate - - Oxygen Saturation - - Inhaled Oxygen Concentration - - Weight 83.9 kg (185 lb) 06/13/2022 12:00 PM EDT Height 172.7 cm (5' 8 ) 06/13/2022 12:00 PM EDT Body Mass Index 28.13 06/13/2022 12:00 PM EDT Plan of Treatment Not on file Insurance [employer] Care Teams Orthopaedic Technologist Relationship Specialty Start Date End Date Nayan Lange DO PCP - General 03/29/24
[2024-09-05 10:41] LABS: Alanine Aminotransferase 45 U/L (16-63); Albumin Globulin Ratio 1.0; Albumin Level 3.4 g/dL (3.4-5.0); Alkaline Phosphatase 60 U/L (46-116); Anion Gap 14.3; Aspartate Amino Transferase 60 U/L (15-37); Blood Urea Nitrogen 20.0 mg/dL (7.0-18.0); Calcium 8.6 mg/dL (8.5-10.1); Carbon Dioxide 27.1 mmol/L (21.0-32.0); Chloride 109 mmol/L (98-107); Cholesterol 206 mg/dL (<=200); Estimated GFR (African America >60 (>=60 mL/min/1.73m^2); Estimated GFR (Non-African Ame >60 (>=60 mL/min/1.73m^2); Globulin 3.3 g/dL; Glucose 123 mg/dL (74-106); HDL Cholesterol 62 mg/dL (40-60); Potassium 4.4 mmol/L (3.5-5.1); Sodium 146 mmol/L (136-145); Total Protein 6.7 g/dL (6.4-8.2); Triglycerides 105 mg/dL (<=150); VLDL CHOLESTEROL 21.0 mg/dL
[2024-09-05 11:00] LABS: Hematocrit 44.8 % (42.0-54.0); Hemoglobin 15.3 g/dL (14.0-18.0); Immature Granulocytes Abs Auto 0.01 10^3/uL (0.00-0.03); Immature Granulocytes Pct Auto 0.2 % (0.0-0.5); Lymphocytes Absolute Auto 1.6 10^3/uL (1.2-3.8); Mean Corpuscular HGB Conc 34.2 g/dL (29.9-35.2); Mean Corpuscular Hemoglobin 31.4 pg (25.9-34.0); Mean Corpuscular Volume 91.8 fL (80.0-94.0); Platelet Count 223 10^3/uL (150-450); Red Blood Count 4.88 10^6/uL (4.70-6.10); White Blood Count 4.9 10^3/uL (4.0-11.0)
== END 2024-09-05 09:13 | disposition home or self-care (01) ==
LOC: LAB 09:14
PROVIDERS: PCP Internal Medicine; Visit Provider Internal Medicine
DX: Z00.00 Encounter for general adult medical examination without abnormal findings (principal); Z12.5 Encounter for screening for malignant neoplasm of prostate
CPT/HCPCS: 36415; 80053; 80061; 85025; G0103

== ENCOUNTER 2024-11-10 10:32 | Outpatient (OUT) | payer OTHER, SELFPAY ==
--- OUTSIDE RECORDS SUMMARY | 2024-11-10 10:52 | XMS_ITS | CCD ---
Author Organization [facility] Care Team Providers Care Director Of Annual Giving Name Role Phone DR NAYAN LANGE Primary Care Unavailable BALL, DR FONTANEZ Admitting Unavailable BALL, DR FONTANEZ Attending Unavailable BALL, DR FONTANEZ Consulting Unavailable BALL, DR FONTANEZ Admitting Unavailable BALL, DR FONTANEZ Attending Unavailable BALL, DR FONTANEZ Consulting Unavailable BALL, DR FONTANEZ Primary Care Unavailable ALLISON, DR KAREEM Marc Consulting Nayan Murphy Unavailable NAYAN LANGE Primary Care Physician Warren MEDINA Attending Unavailable NAZARIO, NAYAN Referring Unavailable NILL, Warren Maxwell Attending Unavailable NAZARIO, NAYAN Referring Unavailable NILL, Warren Maxwell Attending Nayan Murphy MD Primary Care Provider KYLIE FARRAR Attending Monica Meeks MD, Dominic Odonnell Attending Monica Meeks MD, Dominic Odonnell Attending Unavailable Nayan Lange DO Primary Care Provider Nayan Lange DO Attending Provider [phone] Allergies Allergy Classification Reported Allergen(s) Allergy Type Date of Onset Reaction(s) Facility (9 sources) HMG-CoA reductase inhibitor Drug allergy Unknown [facility] Other (1 source) No Known Medication Allergies; Translations: [No Known Medication Allergies] Propensity to adverse reactions (disorder) [facility] Repository (2 sources) patient allergy list reviewed by nurse or physicia Propensity to adverse reactions 9 Comment:Done [facility] Direct Other (4 sources) Penicillins Allergy to substance 4 nausea/vomitin g [facility] (4 sources) Ierjqmf-JIW-AvI Reductase Inhibitor Allergy to substance 4 Unknown Reaction [facility] (2 sources) Penicillin G Drug Allergy 5 Unknown [facility] Medications Current Medications Medication Drug Class(es) Dates Sig (Normalized) Sig (Original) ALPRAZolam 0.5 mg oral tablet (20 sources) Benzodiazepine Start: 08-05-2024 take 2 tablets by mouth twice daily, then take 2 tablets by mouth once at bedtime Alprazolam 0.5 mg tablet Active 0.5 MG PO .COMPLEX 120 August 05, 2024 9:06am 0.5 mg orally; 1 PO bid and 2 PO q HS Complies with drug therapy Start: 12-27-2023 End: 08-05-2024 take 1 tablet by mouth twice daily, then take 2 tablets by mouth once at bedtime Alprazolam 0.5 mg tablet Discontinued 0 .ROUTE .COMPLEX 120 December 27, 2023 1:31pm August 05, 2024 9:06am 1 PO bid and 2 q HS Start: 12-27-2023 take 2 tablets by mo uth twice daily, then take 2 tablets by mouth once at bedtime Alprazolam 0.5 mg tablet Active 0 .ROUTE .COMPLEX 120 December 27, 2023 12:31pm 1 PO bid and 2 q HS Start: 04-19-2023 End: 12-27-2023 take 1 tablet by mouth twice daily, then take 2 tablets by mouth once at bedtime Alprazolam 0.5 mg tablet Discontinued 0.5 MG PO Three times daily 120 April 19, 2023 3:43pm December 27, 2023 1:32pm 1 tablet bid and 2 q HS Start: 08-25-2022 take 1 tablet by misbah [...] 04/01/2024 Active lovastatin 40 mg oral tablet (20 sources) HMG-CoA Reductase Inhibitor Start: 08-27-2023 End: 08-05-2024 take 1 tablet by mouth once daily in the evening Lovastatin 40 mg tablet Active 0 .ROUTE .COMPLEX 90 August 05, 2024 9:05am TAKE 1 TABLET BY MOUTH EVERY DAY IN THE EVENING Complies with drug therapy Start: 09-15-2022 End: 08-27-2023 take 1 tablet by mouth once daily in the evening Lovastatin 40 mg tablet Discontinued 40 MG PO Every evening May 18, 2023 12:00am August 27, 2023 5:19pm PARoxetine hydrochloride 30 mg oral tablet (20 sources) Serotonin Reuptake Inhibitor Start: 04-19-2023 End: 06-17-2024 take 1 tablet by mouth once daily Paroxetine Hcl 30 mg tablet Active 0 .ROUTE .COMPLEX 90 June 17, 2024 7:40am TAKE 1 TABLET BY MOUTH EVERY DAY Complies with drug therapy Start: 09-15-2022 End: 04-19-2023 take 1 tablet by mouth once daily Paroxetine Hcl 30 mg tablet Discontinued 30 MG PO Daily April 19, 2023 1:00am April 19, 2023 3:45pm Completed/Discontinued Medications Medication Drug Class(es) Dates Sig (Normalized) Sig (Original) azithromycin 250 mg oral tablet (4 sources) Macrolide Antimicrobial Start: 05-22-2023 End: 10-11-2023 [...] Feb, Not-Taking/PRN ciprofloxacin 500 mg oral tablet (12 sources) Quinolone Antimicrobial Start: 05-18-2023 End: 05-21-2023 [...] day Not-Taking/PRN metroNIDAZOLE 500 mg oral tablet (12 sources) Nitroimidazole Antimicrobial Start: End: take 1 tablet by mouth three times daily Metronidazole 500 mg tablet Discontinued 500 MG PO Three times daily May 18, 2023 12:00am May 21, 2023 11:48am Start: 08-21-2022 take 1 tablet by misbah th every eight hours metroNIDAZOLE 500 MG 1 tablet Orally Three times a day for 5 days Jul, Active predniSONE 20 mg oral tablet (12 sources) Start: 11-05-2023 End: 09-01-2024 Prednisone 20 mg tablet Discontinued 20 MG PO As Directed November 05, 2023 12:00am September 01, 2024 9:49am 1 tab tid w/ food x 3 days, then bid w/ food x 3 days, then qd w/ food x 3 days Start: 03-20-2022 take 1 tablet by misbah th twice daily predniSONE 20 MG 1 tablet Orally Twice daily w/ food for 5 days Feb, Not-Taking/PRN sulfamethoxazole 800 mg / trimethoprim 160 mg oral tablet (6 sources) Dihydrofolate Reductase Inhibitor Antibacterial, Sulfonamide Antimicrobial [...] Documented Date Episodic/Chronic Anal and rectal conditions (16 sources) Rectal abscess; Translations: [Anorectal abscess] Resolved: 07-15-2019 Episodic Anxiety disorders (19 sources) Generalized anxiety disorder; Translations: [Generalized anxiety disorder] 09-18-2022 Chronic Diabetes mellitus without complication (4 sources) Impaired fasting glycemia; Translations: [Impaired fasting glucose] 05-28-2023 Episodic Diseases of mouth; excluding dental (11 sources) Lip ulcer; Translations: [Diseases of lips] Episodic Disorders of lipid metabolism (20 sources) Pure hypercholesterolemia; Translations: [Familial hypercholesterolemia] Onset: 03-31-2015 Resolved: 07-15-2019 09-18-2022 Chronic Essential hypertension (20 sources) Essential hypertension; Translations: [Essential (primary) hypertension] Chronic Fracture of upper limb (4 sources) Closed fracture of base of thumb; Translations: [Closed fracture of base of thumb (first) metacarpal bone(s)] Episodic Hemorrhoids (20 sources) External hemorrhoids; Translations: [Residual hemorrhoidal skin tags] 05-18-2023 Episodic Hyperplasia of prostate (18 sources) Lower urinary tract symptoms due to [...] breast; Translations: [Hypertrophy of breast] Episodic Osteoarthritis (14 sources) Osteoarthritis of joint of right shoulder [...] (healed) traumatic fracture] Episodic Other liver diseases (4 sources) Enzyme level - finding; Translations: [Transaminasemia] 05-28-2023 Episodic Other male genital disorders (17 sources) Male erectile dysfunction, unspecified; Translations: [Erectile [...] conditions (not mental disorders or infectious disease) (15 sources) Encounter for screening for malignant neoplasm of prostate; Translations: [Patient encounter status] Onset: 09-23-2020 Resolved: 07-15-2019 Episodic Comment on above: PSA:08/2020 - 3.473/2 024 - 5.6606/2023 - 2.8 (10.4%)10/2023 - 3.54 PSA:3.47 - 08/2020, 5 .66 - 04/2023, 2.8 (10.4%) - 06/2023, 3.54 - 10/2023 Other skin disorders (2 sources) Actinic keratosis; Translations: [Actinic keratosis] 04-01-2024 Episodic Residual codes; unclassified (2 sources) H/O: Disorder; Translations: [Personal history of other specified conditions] Episodic Spondylosis; intervertebral disc disorders; other back problems (20 sources) Other spondylosis with radiculopathy, cervical region; Translations: [Cervical spondylosis without myelopathy] Onset: 07-28-2020 Chronic Spondylosis; intervertebral disc disorders; other back problems (5 sources) Backache; Translations: [Dorsalgia, unspecified] Onset: 10-22-2012 [...] yes Amount of lidocaine used: 0.3 cc [facility] Outside Colonoscopyon 2022 Outside Colonoscopy [id number]: 127 [facility] Reminderson 10-26-2022 Reminders - From: Heather Pepper LPN To: N - Clinical; Sent: 10/26/2022 09:57:03 EDT Show up: 09/24/2032 07:00:00 EDT Subject: colonoscopy recall Due Date/Time: 10/25/2032 07:00:00 EDT Reminder/Recall Patient due for screening colonoscopy 10/25/2032. Normal [facility] Consent for Procedure/Surger yon 09-21-2022 Consent for Procedure/Surgery [id number]: 127 [facility] Facesheeton 09-21-2022 Facesheet [id number]: 127 Normal [facility] Ambulatory Visit Summaryon 0 09-20-2022 Ambulatory Visit [...] anxiety disorder Hyperlipidemia Overweight Pure hypercholesterolemia Normal [facility] General Surgery Office/Clini c Noteon [...] mellitus typ (more content not included)... Normal [facility] Comment on above: Result Comment: Elec tronically Signed By: SHANNAN HERNANDEZ, Warren Gonzales\Date and Time Signed: 09/20/22 16:54 EDT Physician Referralon 023 Physician Referral [id number]: 127 Normal [facility] CBC AUTO DIFFon 09-20-2020 BASO # 0.1 103/ul Normal 0.0-0.1 [facility] Comment on above: Performed By: #### C BC #### [facility] [address] [id number] Hailee Sally Basophils/100 WBC (Bld) 0.9 % Normal 0.2-2.0 [facility] Comment on above: Performed By: #### C BC #### [facility] [address] [id number] Hailee Sally EO # 0.3 103/ul Normal 0.0-0.7 [facility] Comment on above: Performed By: #### C BC #### [facility] [address] [id number] Hailee Sally Eosinophils/100 WBC (Bld) 4.8 % Normal 0.9-7.0 [facility] Comment on above: Performed By: #### C BC #### [facility] [address] [id number] Hailee Sally Erythrocyte distribution width (RBC) [Ratio] 12.4 % Normal 11.0-15.0 [facility] Comment on above: Performed By: #### C BC #### [facility] [address] [id number] Hailee Sally Hematocrit (Bld) [Volume fraction] 47.8 % Normal 42.0-54.0 [facility] Comment on above: Performed By: #### C BC #### [facility] [address] [id number] Hailee Sally Hemoglobin (Bld) [Mass/Vol] 16.1 g/dL Normal 14.0-18.0 [facility] Comment on above: Performed By: #### C BC #### [facility] [address] [place] [address] Hailee Sally IG # 0.02 10e3/ul Normal 0.00-0.03 [facility] Comment on above: Performed By: #### C BC #### [facility] [address] [place] [address] Hailee Sally IG % 0.4 % Normal 0.0-0.5 [facility] Comment on above: Performed By: #### C BC #### [facility] [address] [place] [address] Hailee Sally LYMPH # 1.8 103/ul Normal 1.2-3.[address] [facility] Comment on above: Performed By: #### C BC #### [facility] [address] [place] [address] Hailee Sally Lymphocytes/100 WBC (Bld) 32.0 % Normal 20.5-60.0 [facility] Comment on above: Performed By: #### C BC #### [facility] [address] [place] [address] Hailee Sally MANUAL DIFF REQ NO Normal [facility] Comment on above: Performed By: #### C BC #### [facility] [address] [place] [address] Hailee Sally MCH (RBC) [Entitic mass] 31.7 pg Normal 25.9-34.0 [facility] Comment on above: Performed By: #### C BC #### [facility] [address] [place] [address] Haileedaja Zavala MCHC (RBC) [Mass/Vol] 33.7 g/dL Normal 29.9-35.[address] [facility] Comment on above: Performed By: #### C BC #### [facility] [address] [place] [address] Hailee Sally MCV (RBC) [Entitic vol] 94.1 fL Critically high 80.0-94.0 [facility] Comment on above: Performed By: #### C BC #### [facility] [address] [place] [address] Hailee Sally MONO # 0.7 103/ul Normal 0.3-0.8 [facility] Comment on above: Performed By: #### C BC #### [facility] [address] [place], [place] [id number] Hailee Zavala Monocytes/100 WBC (Bld) 12.6 % Critically high 1.7-12.0 [facility] Comment on above: Performed By: #### C BC #### [facility] [address] [place], [place] [id number] Haileedaja Moctezumaen NEUT # 2.7 103/ul Normal 1.4-6.[address] [facility] Comment on above: Performed By: #### C BC #### [facility] [address] [place], [place] [id number] Hailee Zavala Neutrophils/100 WBC (Bld) 49.3 % Normal 43.0-75.0 [facility] Comment on above: Performed By: #### C BC #### [facility] [address] [place], [place] [id number] Hailee Zavala Platelet mean volume (Bld) [Entitic vol] 9.4 fL Critically low 9.5-13.[address] [facility] Comment on above: Performed By: #### C BC #### [facility] [address] [place], [place] [id number] Hailee Moctezumaen PLT 257 103/ul Normal 150-[address] [facility] Comment on above: Performed By: #### C BC #### [facility] [address] [place], [place] [id number] Hailee Sally RBC 5.08 106/ul Normal 4.70-6.[address] [facility] Comment on above: Performed By: #### C BC #### [facility] [address] [place], [place] [id number] Hailee Sally WBC 5.5 103/ul Normal 4.0-11.[address] [facility] Comment on above: Performed By: #### C BC #### [facility] [address] [place], [place] [id number] Hailee Zavala LIPID PROFILEon 09-20-2020 CHOL-HDL RATIO NORM SEE BELOW Normal [facility] Comment on above: Result Comment: 3.3 - 4.4 LOW RISK 4.4 - 7.1 AVERAGE RISK 7.1 - 11.0 MODERATE RISK >11.0 HIGH RISK Performed By: #### L IPID, CMP #### [facility] [address] [id number] Hailee Sally Cholesterol [Mass/Vol] 290 mg/dL Critically high <=200 [facility] Comment on above: Performed By: #### L IPID, CMP #### [facility] [address] [id number] Hailee Sally Cholesterol in HDL [Mass/Vol] 72 mg/dL Normal [facility] Comment on above: Performed By: #### L IPID, CMP #### [facility] [address] [id number] Hailee Sally Cholesterol in LDL [Mass/Vol] 195.8 mg/dL Normal [facility] Comment on above: Performed By: #### L IPID, CMP #### [facility] [address] [id number] Hailee Sally Cholesterol.total/ Cholesterol in HDL [Mass ratio] 4.0 {ratio} Normal [facility] Comment on above: Performed By: #### L IPID, CMP #### [facility] [address] [id number] Hailee Sally HDL NORMAL > or = 60 mg/dl - LO W CARDIOVASCULAR RISK <40 mg/dl - HIGH CARDIOVASCULAR RISK Normal [facility] Comment on above: Performed By: #### L IPID, CMP #### [facility] [address] [id number] Hailee Sally LDL CALC NORMAL SEE BELOW Normal [facility] Comment on above: Result Comment: <100 mg/dl OPTIMAL 100 - 129 mg/dl NEAR OR ABOVE OPTIMAL 130 - 159 mg/dl BORDERLINE HIGH 160 - 189 mg/dl HIGH >190 mg/dl VERY HIGH Performed By: #### L IPID, CMP #### [facility] [address] [id number] Hailee Sally Triglyceride [Mass/Vol] 111 mg/dL Normal <=[address] [facility] Comment on above: Performed By: #### L IPID, CMP #### [facility] [address] [place], [place] [address] Hailee Sally VLDL CALC 22.2 mg/dL Normal [facility] Comment on above: Performed By: #### L IPID, CMP #### [facility] [address] [place], [place] [id number] Hailee Sally PROF 14(COMP METB)on 021 Albumin [Mass/Vol] 3.8 g/dL Normal 3.5-5.0 [facility] Comment on above: Performed By: #### L IPID, CMP #### [facility] [address] [place], [place] [address] Hailee Sally Albumin/Globulin [Mass ratio] 1.0 {ratio} Normal [facility] Comment on above: Performed By: #### L IPID, CMP #### [facility] [address] [place], [place] [address] Hailee Sally ALP [Catalytic activity/Vol] 64 U/L Normal 38-126 [facility] Comment on above: Performed By: #### L IPID, CMP #### [facility] [address] [place], [place] [address] Hailee Sally ALT [Catalytic activity/Vol] 36 U/L Normal 21-72 [facility] Comment on above: Performed By: #### L IPID, CMP #### [facility] [address] [place], [place] [address] Hailee Sally Anion gap [Moles/Vol] 13.0 mmol/L Normal [facility] Comment on above: Performed By: #### L IPID, CMP #### [facility] [address] [place], [place] [address] Hailee Sally AST [Catalytic activity/Vol] 56 U/L Normal 17-59 [facility] Comment on above: Performed By: #### L IPID, CMP #### [facility] [address] [place], [place] [address] Hailee Sally Bilirubin [Mass/Vol] 1.0 mg/dL Normal 0.2-1.3 [facility] Comment on above: Performed By: #### L IPID, CMP #### [facility] [address] [phone] Hailee Sally Calcium [Mass/Vol] 9.0 mg/dL Normal 8.4-10.2 [facility] Comment on above: Performed By: #### L IPID, CMP #### [facility] [address] [phone] Hailee Sally Chloride [Moles/Vol] 106 mmol/L Normal 98-107 [facility] Comment on above: Performed By: #### L IPID, CMP #### [facility] [address] [address] Hailee Sally CO2 [Moles/Vol] 29.4 mmol/L Normal 22.0-30.0 [facility] Comment on above: Performed By: #### L IPID, CMP #### [facility] [address] [place] [address] Hailee Sally Creatinine [Mass/Vol] 1.00 mg/dL Normal 0.66-1.25 [facility] Comment on above: Performed By: #### L IPID, CMP #### [facility] [address] [place], [place] [address] Hailee Sally EGFR-AF BOTSWANAN >60 Normal >=60 [facility] Comment on above: Performed By: #### L IPID, CMP #### [facility] [address] [place] [address] Hailee Sally EGFR-NON AF BOTSWANAN >60 Normal >=60 [facility] Comment on above: Performed By: #### L IPID, CMP #### [facility] [address] [place] [address] Hailee Sally Globulin (S) [Mass/Vol] 3.8 g/dL Normal [facility] Comment on above: Performed By: #### L IPID, CMP #### [facility] [address] [address] Hailee Sally Glucose [Mass/Vol] 117 mg/dL Critically high 74-106 [facility] Comment on above: Performed By: #### L IPID, CMP #### [facility] [address] [address] Hailee Sally Potassium [Moles/Vol] 5.4 mmol/L Critically high 3.4-5.0 [facility] Comment on above: Performed By: #### L IPID, CMP #### [facility] [address] [place] [address] Hailee Sally Protein [Mass/Vol] 7.6 g/dL Normal 6.1-8.2 [facility] Comment on above: Performed By: #### L IPID, CMP #### [facility] [address] [place] [address] Hailee Sally Sodium [Moles/Vol] 143 mmol/L Normal 137-145 [facility] Comment on above: Performed By: #### L IPID, CMP #### [facility] [address] [place] [address] Hailee Sally Urea nitrogen [Mass/Vol] 16.0 mg/dL Normal 9.0-20.0 [facility] Comment on above: Performed By: #### L IPID, CMP #### [facility] [address] [place] [address] Hailee Sally Urea nitrogen/Creatinin e [Mass ratio] 16.0 mg/mg Normal [facility] Comment on above: Performed By: #### L IPID, CMP #### [facility] [address] [place], [place] [phone] Hailee Sally XR CSPINE 2_3 VIEWSon 2020 [...] by: KAREEM COOPER Date: 2020-07-28 11:20 Normal [facility] Vital Signs Date Time Vital Sign Value Performing Clinician Facility 09-01-2024 09:54-0400 Body height 172.72 cm Nayan Ball DO Work Phone: [facility] 09-01-2024 09:54-0400 Body mass index (BMI) [Ratio] 28.8 kg/m2 Nayan Ball DO Work Phone: [facility] 09-01-2024 09:54-0400 Body weight 85.84 kg Nayan Ball DO Work Phone: [facility] 09-01-2024 09:54-0400 Diastolic blood pressure 93 mm[Hg] Nayan Ball DO Work Phone: [facility] 09-01-2024 09:54-0400 Heart rate 99 /min Nayan Ball DO Work Phone: [facility] 09-01-2024 09:54-0400 Respiratory rate 12 /min Nayan Ball DO Work Phone: [facility] 09-01-2024 09:54-0400 Systolic blood pressure 132 mm[Hg] Nayan Ball DO Work Phone: [facility] 03-18-2024 11:31-0500 Body height 172.72 cm [facility] 03-18-2024 11:31-0500 Body mass index (BMI) [Ratio] 30.7 kg/m2 [facility] 03-18-2024 11:31-0500 Body weight 91.73 kg [facility] 03-18-2024 11:31-0500 Diastolic blood pressure 83 mm[Hg] [facility] 03-18-2024 11:31-0500 Heart rate 82 /min [facility] 03-18-2024 11:31-0500 Respiratory rate 12 /min [facility] 03-18-2024 11:31-0500 Systolic blood pressure 130 mm[Hg] [facility] 11-05-2023 15:50-0400 Body height 172.72 cm [facility] 11-05-2023 15:50-0400 Body mass index (BMI) [Ratio] 28.5 kg/m2 [facility] 11-05-2023 15:50-0400 Body weight 85.27 kg [facility] 11-05-2023 15:50-0400 Diastolic blood pressure 85 mm[Hg] [facility] 11-05-2023 15:50-0400 Heart rate 86 /min [facility] 11-05-2023 15:50-0400 Respiratory rate 12 /min [facility] 11-05-2023 15:50-0400 Systolic blood pressure 138 mm[Hg] [facility] 10-11-2023 09:18-0400 Body height 172.72 cm [facility] 10-11-2023 09:18-0400 Body mass index (BMI) [Ratio] 27.9 kg/m2 [facility] 10-11-2023 09:18-0400 Body weight 83.46 kg [facility] 10-11-2023 09:18-0400 Diastolic blood pressure 83 mm[Hg] [facility] 10-11-2023 09:18-0400 Heart rate 76 /min [facility] 10-11-2023 09:18-0400 Systolic blood pressure 129 mm[Hg] [facility] 05-21-2023 11:49-0400 Body height 172.72 cm [facility] 05-21-2023 11:49-0400 Body mass index (BMI) [Ratio] 30.1 kg/m2 [facility] 05-21-2023 11:49-0400 Body weight 89.92 kg [facility] 05-21-2023 11:49-0400 Diastolic blood pressure 89 mm[Hg] [facility] 05-21-2023 11:49-0400 Heart rate 98 /min [facility] 05-21-2023 11:49-0400 Respiratory rate 12 /min [facility] 05-21-2023 11:49-0400 Systolic blood pressure 145 mm[Hg] [facility] 09-20-2022 14:56-0400 Blood Pressure Location [facility] 09-20-2022 14:56-0400 Diastolic blood pressure 92 mm[Hg] Warren LONGL [facility] [place] 09-20-2022 14:56-0400 Heart rate 72 /min Warren NILL [facility] [place] 09-20-2022 14:56-0400 Respiratory rate 16 /min Warren NILL [facility] [place] 09-20-2022 14:56-0400 Systolic blood pressure 132 mm[Hg] Warren NILL [facility] [place] 08-28-2022 08:45-0400 Body height 172.72 cm Nayan Ball Other [facility] Other 08-28-2022 08:45-0400 Body mass index (BMI) [Ratio] 28.61 kg/m2 Nayan Ball Other [facility] Other 08-28-2022 08:45-0400 Body weight 85.37 kg Nayan Ball Other [facility] Other 08-28-2022 08:45-0400 Diastolic blood pressure 86 mm[Hg] Nayan Ball Other [facility] Other 08-28-2022 08:45-0400 Respiratory rate 12 /min Nayan Ball Other [facility] Other 08-28-2022 08:45-0400 Systolic blood pressure 126 mm[Hg] Nayan Ball Other [facility] Other 08-21-2022 09:30-0400 Body height 172.72 cm Nayan Ball Other [facility] Other 08-21-2022 09:30-0400 Body mass index (BMI) [Ratio] 28.61 kg/m2 Nayan Ball Other [facility] Other 08-21-2022 09:30-0400 Body weight 85.37 kg Nayan Ball Other [facility] Other 08-21-2022 09:30-0400 Diastolic blood pressure 88 mm[Hg] Nayan Ball Other [facility] Other 08-21-2022 09:30-0400 Respiratory rate 12 /min Nayan Ball Other [facility] Other 08-21-2022 09:30-0400 Systolic blood pressure 151 mm[Hg] Nayan Ball Other [facility] Other 05-31-2022 10:15-0400 Body height 172.72 cm Nayan Ball Other [facility] Other 05-31-2022 10:15-0400 Body mass index (BMI) [Ratio] 29.89 kg/m2 Nayan Ball Other [facility] Other 05-31-2022 10:15-0400 Body weight 89.18 kg Nayan Ball Other [facility] Other 05-31-2022 10:15-0400 Diastolic blood pressure 81 mm[Hg] Nayan Ball Other [facility] Other 05-31-2022 10:15-0400 SaO2% (BldA) [Mass fraction] 96 % Nayan Ball Other [facility] Other 05-31-2022 10:15-0400 Systolic blood pressure 123 mm[Hg] Nayan Ball Other [facility] Other 03-20-2022 12:30-0500 Body height 172.72 cm Nayan Ball Other [facility] Other 03-20-2022 12:30-0500 Body mass index (BMI) [Ratio] 29.16 kg/m2 Nayan Lange Other [facility] Other 03-20-2022 12:30-0500 Body weight 87 kg Nayan Lange Other [facility] Other 03-20-2022 12:30-0500 Diastolic blood pressure 76 mm[Hg] Nayan Lange Other [facility] Other 03-20-2022 12:30-0500 Respiratory rate 12 /min Nayan Lange Other [facility] Other 03-20-2022 12:30-0500 Systolic blood pressure 118 mm[Hg] Nayan Lange Other [facility] Other Encounters Encounter Date Encounter Type Care Provider Facility Start: 09-01-2024 End: 09-01-2024 ambulatory Nayan Lange DO Work Phone: [facility] Work Phone: Start: 09-01-2024 End: 09-01-2024 Patient encounter procedure Nayan Lange DO -[facility] Work Phone: Start: 09-01-2024 End: 09-01-2024 Patient encounter status Nayan Lange [facility] Start: 06-23-2024 End: 06-23-2024 ambulatory Dominic Meeks MD Facility:[facility] Start: 06-02-2024 End: 06-02-2024 ambulatory Dominic Meeks MD Facility:[facility] Start: 04-01-2024 End: 04-01-2024 Bambobeto Farrar MD Work Phone: [facility] Start: 04-01-2024 End: 04-01-2024 Bamboo petra Jean Baptistei MD Work Phone: [facility] Start: 04-01-2024 End: 04-01-2024 Office outpatient new 30 minutes Kylie Farrar MD Work Phone: [facility] Comment on above: Actinic keratosis (P rimary Dx); Neoplasm of unspecified behavior of bone, soft tissue, and skin; Neoplasm of uncertain behavior of skin Start: 04-01-2024 End: 04-01-2024 ambulatory KYLIE FARRAR Not Available Start: 03-18-2024 End: 03-18-2024 ambulatory [facility] Work Phone: Start: 03-18-2024 End: 03-18-2024 Patient encounter procedure [facility] Physician [facility] Work Phone: Start: 11-05-2023 End: 11-05-2023 ambulatory [facility] Work Phone: Start: 11-05-2023 End: 11-05-2023 Patient encounter procedure [facility] Physician [facility] Work Phone: Start: 10-11-2023 End: 10-11-2023 ambulatory [facility] Work Phone: Start: 10-11-2023 End: 10-11-2023 Patient encounter procedure [facility] Physician [facility] Work Phone: Start: 05-21-2023 End: 05-21-2023 ambulatory [facility] Work Phone: Start: 05-21-2023 End: 05-21-2023 Encounter for general adult medical examination without abnormal findings [facility] Start: 05-21-2023 End: 05-21-2023 Patient encounter procedure [facility] Physician [facility] Work Phone: Start: 04-19-2023 Non-patient / Non-visit [facility] Physician [facility] Work Phone: Start: 03-26-2023 End: 03-26-2023 ambulatory Nayan Lange Other [facility] Other Start: 03-26-2023 Nursing evaluation o f patient and report Nayan Lange [facility] Start: 03-26-2023 Telephone encounter Nayan Lange [facility] Start: 03-26-2023 [facility] Start: 10-25-2022 End: 10-26-2022 ambulatory Warren R NILL Facility:CD:[id number] Start: 09-20-2022 End: 09-21-2022 ambulatory Warren R NILL Facility:[facility] Start: 09-20-2022 End: 09-20-2022 Patient encounter procedure Warren R NILL General Surgery [facility] [place] Start: 09-14-2022 ambulatory Warren R NILL Facility : [facility] Start: 09-12-2022 End: 09-12-2022 ambulatory Nayan Lange Other [facility] Other Start: 09-12-2022 Telephone encounter Nayan Lange [facility] Start: 09-01-2022 End: 09-01-2022 ambulatory Nayan Lange Other [facility] Other Start: 09-01-2022 Telephone encounter Nayan Lange [facility] Start: 08-28-2022 End: 08-28-2022 ambulatory Nayan Lange Other [facility] Other Start: 08-28-2022 Office outpatient visit 15 minutes Nayan Ball [facility] Start: 08-21-2022 End: 08-21-2022 ambulatory Nayan [facility]ario Other [facility] Other Start: 08-21-2022 Office outpatient visit 15 minutes Nayan Ball [facility] Start: 05-31-2022 End: 05-31-2022 ambulatory Nayan [facility] Other [facility] Other Start: 05-31-2022 Office outpatient visit 15 minutes Nayan aLnge [facility] Start: 03-20-2022 End: 03-20-2022 ambulatory Nayan Lange Other [facility] Other Start: 03-20-2022 Office outpatient visit 15 minutes [facility] Start: 10-08-2021 Adult health examination Nayan Lange Other [facility] Other Start: 09-23-2020 Encounter for genera l adult medical examination without abnormal findings DR NAYAN LANGE [facility] Start: 09-20-2020 End: 09-21-[address] NAYAN LANGE Facility:[facility] Start: 09-20-2020 End: 09-21-2020 Encounter for general adult medical examination without abnormal findings DR NAYAN LANGE Facility:[facility] Start: 07-28-2020 End: 07-29-[address] NAYAN LANGE Facility:[facility] Procedures Date Procedure Procedure Detail Performing Clinician Start: 04-01-2024 SKIN / NAIL BIOPSY Sampsonjeanne Farrar MD Work Phone: Start: 09-20-[address] CANTU [place] Comment on above: Performed By: #### P [facility] #### [facility] [address] [place] [address] Hailee Zavala Start: 10-06-2016 End: 07-15-2019 Screening for malignant neoplasm of prostate Nayan Lange Other Start: 01-29-2014 End: 07-15-2019 General examination of patient Nayan Lange Other Start: 06-26-2012 Colonoscopy Warren NI LL Arthroscopy of knee Warren NILL Depression screening Smitha Lange Other Excisional biopsy of breast mass Warren NILL Fasciotomy of foot Warren N ILL Screening for malign ant neoplasm of prostate Nayan Lange Other Structure of right g lenoid labrum Warren NILL Plan of Treatment Date Care Activity Detail Author Start: 06-30-2024 End: 06-30-2024 Patient encounter procedure 06/30/2024 9:45 AM EDT Office Visit [facility] [address] [place] [address] Kylie Farrar MD [address] [place] [address] [facility] Start: 04-01-2024 End: 04-01-2024 Patient encounter procedure 04/01/2024 9:35 AM EST Office Visit [facility] [address] [place] [address] Kylie Farrar MD [address] [place] [address] Arrived [facility] Comment on above: Arrived Comprehensive metabo lic 2000 panel - Serum or Plasma [facility] Comprehensive metabo lic 2000 panel - Serum or Plasma [facility] Dermatopathology exam Dermatopat hology exam Pathology and Cytology Timed Neoplasm of unspecified behavior of bone, soft tissue, and skin Release Upon Ordering for 1 Occurrences starting 04/01/2024 [facility] Work Phone: Comment on above: Release Upon Ordering for 1 Occurrences starting 04/01/2024 [facility] Payers Date Payer Category Payer Unknown 2021 Private Health Insurance [employer] [id number] 1959 Unknown [id number] 1959 Unknown [id number] 1959 Unknown [id number] 727 1959 Unknown [id number] 727 1959 Unknown [id number] 727 1959 Unknown [id number] 1259 1959 Unknown [id number] 196 1959 Unknown [id number] 196 1959 Unknown [id number] Self-pay Self Pay [id number] Social History Date Type Detail Facility Unknown if ever smoked [facility] Other Start: 04-01-2024 Sex Assigned At [facility] Start: 09-20-2022 End: 03-26-2023 Tobacco smoking status Never smoked tobacco (finding) [facility] Tobacco smoking status Never [facility] Start: 1960 Sex Assigned At Male [facility] Start: 03-18-2024 Sex Male (finding) [facility] Tobacco smoking status FLIS Tobacco smoking consumption unknown [facility] Start: 1960 Sex assigned at Not on file [facility] Start: 04-01-2024 Tobacco use and exposure Smokeless tobacco non-user [facility] Start: 04-01-2024 History of Social function [facility] Functional Status Date Assessment Result Facility 09-20-2022 Functional Status N/A General [facility]ivo [facility] [place] Clinical Notes 10-06-2016 to 04-01-2024 Kylie Farrar [...] and recheck nose documented in this encounter [facility] 10-11-2023 Evaluation note Authored October 11, 2023 9: 47am 62-year-old man referred to the GI clinic for evaluation of rectal pain. Patient has been having discomfort in the rectum for the last 2 months. He had a colonoscopy in [place] a year ago which was normal as per patient. Will arrange for [facility] Work Phone: 1(321) 783-145706-15-2024 Evaluation note* Author Miranda [facility] Authored October 11, 2023 9: 47am 62-year-old man referred to the GI clinic for evaluation of rectal pain. Patient has been having discomfort in the rectum for the last 2 months. He had a colonoscopy in [place] a year ago which was normal as per patient. Will arrange for [facility] Work Phone: [phone]) 105-651807-03-2023 Evaluation note* Encounter Date Diagnosis Assessment Notes Treatment Notes Treatment Clinical Notes Aug, Jorden-rectal abscess (ICD-10 - K61.1) Much improved clinically. He is to continues w/ soaking in tub and wiping w/ Tucks wipes. He is to avoid straining Resume normal activity as tolerated Notify office w/ any recurrent symptoms Rx w/ additional 5 days of antibiotics [facility] Other 07-03-2023 Evaluation note* Encounter Date Diagnosis [...] Screening for colon cancer (ICD-10 - Z12.11) [facility] Other 06-26-2023 Evaluation note* Encounter Date Diagnosis Assessment Notes Treatment Notes Treatment Clinical Notes Jul, Jorden-rectal abscess (ICD-10 - K61.1) Sitz baths daily, gentle cleansing. Avoid straining Recheck in 1 wk. [facility] Other 04-05-2023 Evaluation note* Encounter Date Diagnosis Assessment Notes Treatment Notes Treatment Clinical Notes May, Rupture of right biceps tendon, initial encounter (ICD-10 - S46.211A) Refer to Orthopedics for guidance on rehabilitation. May, Acute pain of right shoulder (ICD-10 - M25.511) Ice/heat and Advil as needed. [facility] Other 01-23-2023 Evaluation note* Encounter Date Diagnosis [...] continue exercise to achieve/maintain a normal BMI. [facility] Other 08-11-2017 Evaluation note* Encounter Date Diagnosis Assessment Notes Treatment Notes Treatment Clinical Notes Sep, Dysuria (ICD-10 - R30.0) Dysuria [facility] [employer] Other Evaluation + Plan note No data available for this section [facility] Evaluation noteNo [facility] [employer] Other Evaluation note* Diagnosis Onset Date Resolution Status Benign prostatic hyperplasia with nocturia acute Essential (primary) hypertension acute TEODORA (generalized anxiety disorder) acute Hyperlipidemia type II acute Screening PSA (prostate specific antigen) noneactive Wellness examination noneact roberto [facility] Work Phone: Evaluation note* Diagnosis Onset Date Resolution Status Admit Date Low back pain with radiation acute March 18, 2024 11:23am [facility] Work Phone: Evaluation note* Diagnosis Actinic keratosis- Primary Neoplasm of unspecified behavior of bone, soft tissue, and skin Neoplasm of uncertain behavior of skin documented in this encounter [facility]* Diagnosis Onset Date Resolution Status Admit Date Essential (primary) hypertension acute September 01, 2024 9 :46am TEODORA (generalized anxiety disorder) acute September 01, 2024 9 :46am Hyperlipidemia type II acute Ju 2024 9:46am Wellness examination acute September 01, 2024 9:46am Screening PSA (prostate specific antigen) noneactive September 01, 2024 9:46am [facility] Work Phone: History general Narrative - Reported* [...] KNEE ARTHROSCOPY Hospitalization History SEE SURGICAL HX [facility] Other History general Narrative - Reported* Type [...] Colonoscopy 09/2022 Hospitalization History SEE SURGICAL HX [facility] Other Hospital Discharge instructions No data available for this section General [facility] [place] Progress note No data available for this section General [facility] [place] Reason for referral (narrative)* Reason Referral for evaluat ion of suspected jorden rectal abscess/fistula along with a screening colonoscopy Diagnosis 1 Jorden-rectal abscess (K61.1) Diagnosis 2 Screening for colon cancer (Z12.11) Referral Organization [facility] Cecelia lyle Referring Provider First Name Nayan Referring Provider Last Name Nazario Referring Provider Specialty Internal Me teresa Referred Organization [facility] Referred Provider Warren Medina Referred Address [address] [place] [id number] Referred Provider Specialty Surgery Referral Priority Routine General Notes Mr. Donaldson present ed w/ rectal pain but denies abdominal pain, melena, hematochezia or tenesmus. His pain was limited to wiping. He was found to have a jorden rectal abscess, which responded to antibiotics. He is being referred for further evaluation of this condition as well as a screening colonoscopy [facility] Other Reason for referral (narrative)No reason for referral [facility] Work Phone: Summary Purpose Family History Relationship Condition Age [...] eps tendon, initial encounter (S46.211A) Referral Organization [facility] dariela Referring Provider First Name Nayan Referring Provider Last Name Nazario Referring Provider Specialty Internal Me teresa Referred Organization [facility] Referred Provider Josh Barrow Referred Address ,[place], [place],[address] Referred Provider Specialty Orthopedic S urgery Referral [...] Low back pain with radiation February 11:23am Chief Complaint Admit Date Wellness September 01, 2024 9:46a m Reason for Visit Admit Date Essential (primary) hypertension August 9:46am TEODORA (generalized anxiety disorder) September 01, 2024 9:46am Hyperlipidemia type II September 01, 2024 9: 46am Wellness examination September 01, 2024 9:46 am Screening PSA (prostate specific antigen ) September 01, 2024 9:46am Additional Source Comments (unrecognized sect ion and content) No Status Records FoundNo Status Records FoundNo Status Records FoundNo Status Records Found INFORMATION SOURCE (unrecogn ized section and content) DATE CREATED AUTHOR 09/25/2020 [facility] DATE CREATED AUTHOR AUTHOR'S ORGANIZ ATION 10/31/2022 [facility] DATE CREATED AUTHOR AUTHOR'S ORGANIZ ATION 04/03/2024 [facility] EPIC DATE CREATED AUTHOR AUTHOR'S ORGANIZ ATION 07/06/2024 [facility] REASON FOR VISIT (unrecogniz ed [...] March 18, 2024 End: March 18, 2024 Director Of Annual Giving Relationship Specialty Start Date End Date Nayan Lange MD [address] [facility] [place] [id number] PCP - General 03/29/24 Director Of Annual Giving Relationship Specialty Start Date End Date Nayan Lange MD [address] [place] [id number] PCP - General 03/29/24 Team Status: Inactive Member Role Status Dates Nayan Lange DO Primary Care Provider Active Start: September 01, 2024 End: September 01, 2024 Nayan Lange DO Attending Provider Active Sta rt: September 01, 2024 End: September 01, 2024 Goals (unrecognized section and content) Goals may [...] BE BASED ON THE PRIMARY CLINICAL RECORDS. [facility]. provides no warranty or guarantee of the accuracy or completeness of information in this document.
[2024-11-11 04:07] LABS: PSA, Free 0.35 ng/mL
== END 2024-11-10 10:33 | disposition home or self-care (01) ==
LOC: LAB 10:34
PROVIDERS: PCP Internal Medicine; Visit Provider Internal Medicine
DX: R97.20 Elevated prostate specific antigen [PSA] (principal)
CPT/HCPCS: 36415; 84153; 84154